=== PATIENT | female | born 1945 | race Caucasian/White ===

== ENCOUNTER 2023-03-09 18:53 | Inpatient (IN) ==
[2023-03-09] MEDS ORDERED: SODIUM CHLORIDE 0.9% 1000ML 1,000 ML IV ONE (19:23)
[2023-03-09] MEDS ORDERED: methylPREDNISolone 125 MG/2 ML VIAL IV STA (19:23)
[2023-03-09] MEDS ORDERED: ALBUT/IPRATROP 3MG/0.5MG NEB 3 ML VIAL NEB ONE (19:23)
[2023-03-09 19:49] LABS: Base Excess VBG 1.2 mEq/L; HCO3 VBG 29 mmol/L; Oxygen Saturation VBG 97.4 %; PCO2 VBG 59 mmHg (38-50); PO2 VBG 86 mmHg
[2023-03-09 19:54] LABS: Basophils # (auto) 0.03 K/uL (0-0.2); Basophils % (auto) 0.4 %; Eosinophils # (auto) 0.08 K/uL (0-0.50); Hematocrit (blood only) 42.4 % (37.0-47.0); Hemoglobin 15.8 g/dl (12.0-16.0); Immature Granulocytes # (auto) 0.05 K/uL (0.01-0.20); Immature Granulocytes % (auto) 0.6 %; Lymphocytes # (auto) 0.59 K/uL (1.2-3.4); Lymphocytes % (auto) 7.5 %; Mean Corpuscular Hemoglobin 30.3 pg (25.0-34.0); Mean Corpuscular Hgb Conc 37.3 g/dL (32.0-36.0); Mean Corpuscular Volume 81.4 fL (80.0-100.0); Monocytes # (auto) 0.69 K/uL (0.11-0.59); Monocytes % (auto) 8.7 %; Neutrophils # (auto) 6.46 K/uL (1.40-6.50); Neutrophils % (auto) 81.8 %; Platelet Count 242 K/uL (130-400); RDW Coefficient of Variation 11.1 % (11.5-14.5); RDW Standard Deviation 32.6 fL (36.4-46.3); Red Blood Count 5.21 M/uL (4.20-5.40)
[2023-03-09 20:09] LABS: Albumin Globulin Ratio 1.5 (0.9-2); Albumin Level 4.8 gm/dl (3.4-5.0); BUN Creatinine Ratio 27.8 (10-20); Bilirubin,Total 0.7 mg/dl (0.2-1.0); Calcium 9.7 mg/dl (8.6-10.3); Creatinine Clr Calc Pharmacy 95.9 ml/min; Est GFR (African American) 120.6 ml/min; Globulin 3.1 gm/dl (2.5-4.0); Magnesium 1.7 mg/dl (1.7-2.4); Potassium 4.1 mmol/L (3.5-5.1); Total Protein 7.9 gm/dl (6.0-8.3)
[2023-03-09 20:16] LABS: Troponin I High Sensitivity 11.8 pg/ml (0-14)
--- NOTE | 2023-03-09 20:19 | Emergency Department Note ---
Impression & Plan Acute and chronic respiratory failure with hypercapnia, COPD (chronic obstructive pulmonary disease), ST elevation on ECG, Bigeminy, Hypertensive emergency, Hyponatremia, Pneumonia ED Provider Note NAME: PHILOMENA KU AGE: 77 SEX: F ARRIVES VIA: Ambulance INFORMANT: Patient ED PROVIDER(S): Vinicio Tian MD CHIEF COMPLAINT: Shortness of breath. PLAN: Disposition: Admit MEDICAL DECISION MAKING: The patient is a pleasant 77-year-old woman with a past medical history of chronic respiratory failure on 2 L home oxygen, COPD, pulmonary cachexia per records who presents to the emergency department via EMS and respiratory distress companied by her granddaughter for evaluation of worsening respiratory symptoms over the past 3-4 days with increased productive yellow sputum. She denies any fevers, nausea, vomiting or diarrhea. They report that she has had poor appetite. Her granddaughter confirms that her work of breathing which she exhibits on arrival is not her baseline. On arrival the patient is in moderate respiratory distress afebrile with heart in the 110s and respiratory rate in the upper 20s low with O2 saturation in the mid 90s on nasal cannula. She has diminished breath sounds bilaterally with underlying wheeze and prolonged expiratory phase with moderate increased work of breathing. Patient agreed with plan for treatment with BiPAP for acute on chronic respiratory failure and inline DuoNeb. Patient was given Solu-Medrol by EMS. Initial EKG on arrival demonstrates sinus tachycardia at [address] elevation or depression with LVH noted. Chest x-ray negative for acute cardiopulmonary process per my preliminary review with lung hyperinflation and flattening of diaphragm consistent with patient's chronic respiratory failure in setting of COPD. WBC, H/H and platelets within normal limits. Chemistry without metabolic acidosis with bicarbonate 26 however VBG with pH of 7.3 and PCO2 of 59 in the setting of the patient's tachypnea with respiratory rate in the low 30s on arrival suggestive of acute hypercapnic respiratory failure. Sodium 118 which appears to be new with serum osmolality of 256 and urine osmolality and urine sodium pending. LFTs unremarkable. Initial high-sensitivity troponin 11.8, within normal limits. Of note, the patient's respiratory status did improve with BiPAP and continuous DuoNeb. However I was then notified of new ectopy on the patient's telemetry by nursing which demonstrated frequent PVCs and pattern of bigeminy. Subsequently the morphology of the patient's telemetry did change concerning for ST elevation and upon repeat EKG demonstrated anterior lateral ST elevations. The patient continued to appear improved from her initial presentation and denied chest pain or pressure. I did perform a limited bedside cardiac ultrasound which demonstrated apical hypokinesis. While ST elevation FL is certainly considered, patients presentation is not necessarily specific for this and stress-induced cardiomyopathy (Takotsubo's) in the setting of COPD with acute on chronic respiratory failure and hyponatremia is also considered. I did review the findings with the patient and her granddaughter at the bedside. We did discuss CODE STATUS for which the patient has yet to establish a definitive CODE STATUS. However the granddaughter feels that the patient's inclination would be to be DNR/DNI. However the patient did not feel immediately ready to make this decision and so this will be readdressed. It should be noted that during the patient's pulmonology visit in August palliative medicine referral was considered at that time. Further treatment provided with nitroglycerin paste, which was transitioned to nitroglycerin drip for afterload reduction given profound hypertension. She was additionally given full dose aspirin. Case was discussed with interventional cardiology, Dr. Lindo, who reviewed the patient's EKGs from today. Appreciate consultation and recommendations. Given the patient's presentation with multiple confounding factors and given no cur rent chest pain Ragman intervention will be deferred for now pending further treatment and stabilization. A degree of troponin elevation is expected however if patient were to decompensate or develop chest pain then catheterization would be reconsidered. Upon repeat evaluations the patient was feeling improved with blood pressure/MAP improving from 160-170 to 110-120. For further characterization of the patient's symptoms CT of the chest was ordered and is pending. Case was discussed with Dr. Hernández, [facility] hospitalist who will evaluate the patient for admission. CTA of the chest completed and subsequently demonstrates question of pneumonia versus mass/malignancy of the anterior left upper lobe. Otherwise no PE. Delta 2 hour HS troponin 121, non-specfic per above. Further management per admitting team. Triage Nursing notes reviewed and agree them. Prior/outside medical records reviewed Vital Signs: reviewed Differential diagnosis: Reactive airway disease, pneumonia, pneumothorax, COPD, CHF, infections, cardiac ischemia, pulmonary embolism, musculoskeletal, gastrointestinal, as well as other pathologies. ER treatment provided: See below. Diagnostics interpreted by me: ECG 1907: Sinus tachycardia, 120 bpm, no ectopy, LVH, no overt ST elevation or depression, QTc 474, QRS 102. No recent EKG available for comparison. Last [facility] EKG 06/21/2014. ECG 2030: Sinus tachycardia, 128 bpm frequent PVCs and pattern of bigeminy, no overt ST elevation. ECG 204: Sinus tachycardia, 132 bpm, no ectopy, anterior lateral ST elevation. Cardiac Monitoring: An order for continuous cardiac monitoring was placed and demonstrated sinus tachycardia, 128 bpm, frequent PVCs and pattern of bigeminy, development of anterior lateral ST elevation. Laboratory studies: See below Imaging studies: See below Consultation(s): Dr. Lindo[facility]. Dr. Hernández, [facility] hospitalist. HPI: The patient is a pleasant 77-year-old woman with a past medical history of chronic respiratory failure on 2 L home oxygen, COPD, pulmonary cachexia per records who presents to the emergency department via EMS and respiratory distress companied by her granddaughter for evaluation of worsening respiratory symptoms over the past 3-4 days with increased productive yellow sputum. She denies any fevers, nausea, vomiting or diarrhea. They report that she has had poor appetite. Her granddaughter confirms that her work of breathing which she exhibits on arrival is not her baseline. ROS: See above HPI for pertinent positives & negatives. A total of 10 systems reviewed and were otherwise negative. VITALS:See Below PHYSICAL EXAMINATION: GENERAL: Awake, alert, ill-appearing, moderate respiratory distress, cachectic. HENT: Normocephalic, atraumatic. Oropharynx with dry mucous membranes and otherwise unremarkable.. EYES: Normal conjunctiva. Sclera non-icteric. NECK: Supple. No nuchal rigidity. FROM. No JVD. RESPIRATORY: Diminished breath sounds bilaterally with underlying wheeze and prolonged expiratory phase with moderate increased work of breathing. CARDIAC: Tachycardic rate, normal rhythm. Extremities warm and well perfused. Pulses equal. ABDOMEN: Soft, non-distended. No tenderness to palpation. No rebound or guarding. No masses. RECTAL: Deferred. MUSCULOSKELETAL: Chest examination reveals no tenderness. The back is symmetrical on inspection without obvious abnormality. There is no CVA tenderness to palpation. No joint edema. LOWER EXTREMITIES: Calves are equal size bilaterally and non-tender. No edema. No discoloration. NEURO: Normal sensorium. No sensory or motor deficits noted. SKIN: No rash or jaundice noted. ED COURSE: Critical Care: I have personally spent greater than 75 minutes of critical care time in the direct management of this patient. This includes bedside care, interpretation of diagnostic studies, and testing, discussion with consultants, patient, and family members, and other required patient management activities. This 75 minutes is in excess of all separately billable procedures. Vinicio Tian MD Past Med/Surg History Medical History Anxiety Cervical cancer Chronic respiratory failure COPD (chronic obstructive pulmonary disease) Hernia Pulmonary nodule, left Tobacco abuse Surgical History History of breast lump/mass excision History of surgical removal of pilonidal cyst S/P bilateral breast biopsy S/P cataract extraction S/P hysterectomy Status post bilateral foot surgery Social History Smoking Status: Former smoker Tobacco Type: Cigarettes Age Started Using Tobacco: 13; packs per day: 1.5; Second Hand Exposure: No; Do You Dip or Chew Tobacco: No; Tobacco Cessation Education Requested by Patient: No Hx Alcohol Use: No Hx Substance Use: No Preferred Language: Somali Communication Ability: Effective Visual Impairment: Limited Hearing Ability: Hard of Hearing Beliefs That Will Affect Care: None marital status: Current Living Situation: Personal Care Facility Current Living Situation Comment: [employer] current occupational status: retired How many Children do You have: 1 How many Children do You have Comment: DAUGHTER UNABLE TO ASSIST MUCH WITH CARE, NIECES ASSIST WITH CARE Other Information That Helps Us Care for You: No Feels Safe at Home: Yes Safety Concerns: Feels Safe At This Time during the past year weight has: decreased > 10 lbs Assistive Devices: Oxygen - Continuous Allergies Allergies Allergy/AdvReac Type Severity Reaction Status Date / Time aspirin AdvReac Intermediate NOSE BLEED Verified 03/09/23 19:42 WITH FULL STRENGTH ASA, LOW DOSE OK. Sulfa (Sulfonamide AdvReac Intermediate NOSE Verified 03/09/23 19:39 Antibiotics) BLEEDS PER [facility] MED LIST Home Meds Home Medications Medication Instructions Recorded Confirmed albuterol sulfate 90 mcg/actuation 2 puff inhalation Q4H PRN 08/21/21 03/09/23 aerosol inhaler Shortness Of Breath Or Wheezing alprazolam 0.25 mg tablet (Xanax) 0.25 mg PO DAILY PRN Anxiety 08/21/21 03/09/23 aspirin 81 mg tablet,delayed 81 mg PO DAILY 08/21/21 03/09/23 release acetaminophen 500 mg tablet 500 mg PO DIRECTED PRN Pain 03/09/23 03/09/23 (Non-Aspirin Pain Relief) Results & Data (ED) Vital Signs Vital Signs - 24 hr 03/09/23 18:57 03/09/23 19:05 03/09/23 19:10 Temperature 36.6 C Temperature Source Oral Pulse Rate 129 H 120 H Pulse Rate [Finger] 121 H Pulse Rate from SpO2 Sensor Pulse Rhythm [Finger] Regular Respiratory Rate 32 H 32 H Respiratory Effort / Characteristics Labored Non-Labored Respiratory Depth Deep Normal Respiratory Pattern Regular Regular Blood Pressure 259/126 H Blood Pressure Mean 170 Pulse Oximetry 96 97 Oxygen Delivery Method Room Air Nasal Cannula Oxygen Flow Rate 2 Fraction of Inspired Oxygen Sepsis Recent Fever Within 48 Hours No Sepsis New/Unexplained Change in Mental Status No Sepsis Action Taken by Nursing No Action Required 03/09/23 19:27 03/09/23 19:35 03/09/23 19:35 Temperature Temperature Source Pulse Rate 112 H 113 H Pulse Rate [Finger] 109 H Pulse Rate from SpO2 Sensor Pulse Rhythm [Finger] Respiratory Rate 18 22 24 Respiratory Effort / Characteristics Spontaneous Accessory Muscle Use Spontaneous Respiratory Depth Respiratory Pattern Blood Pressure Blood Pressure Mean Pulse Oximetry 96 100 100 Oxygen Delivery Method Nasal Cannula BiPAP Oxygen Flow Rate 2 Fraction of Inspired Oxygen 40 40 Sepsis Recent Fever Within 48 Hours Sepsis New/Unexplained Change in Mental Status Sepsis Action Taken by Nursing 03/09/23 19:05 03/09/23 19:11 03/09/23 19:30 Temperature Temperature Source Pulse Rate 121 H 117 H 112 H Pulse Rate [Finger] Pulse Rate from SpO2 Sensor 121 H 118 H 112 H Pulse Rhythm [Finger] Respiratory Rate 25 H 20 32 H Respiratory Effort / Characteristics Respiratory Depth Respiratory Pattern Blood Pressure 249/120 H 214/114 H 193/102 H Blood Pressure Mean 163 147 132 Pulse Oximetry 97 97 96 Oxygen Delivery Method BiPAP Oxygen Flow Rate Fraction of Inspired Oxygen Sepsis Recent Fever Within 48 Hours Sepsis New/Unexplained Change in Mental Status Sepsis Action Taken by Nursing 03/09/23 20:00 03/09/23 20:23 03/09/23 21:27 Temperature Temperature Source Pulse Rate 115 H 120 H Pulse Rate [Finger] Pulse Rate from SpO2 Sensor 115 H Pulse Rhythm [Finger] Respiratory Rate 28 H Respiratory Effort / Characteristics Accessory Muscle Use Labored Pursed Lip Short of Breath Respiratory Depth Deep Respiratory Pattern Tachypnea Blood Pressure 189/109 H Blood Pressure Mean 135 Pulse Oximetry 99 Oxygen Delivery Method BiPAP Oxygen Flow Rate Fraction of Inspired Oxygen Sepsis Recent Fever Within 48 Hours Sepsis New/Unexplained Change in Mental Status Sepsis Action Taken by Nursing 03/09/23 21:30 03/09/23 20:10 03/09/23 20:20 Temperature Temperature Source Pulse Rate 117 H 120 H Pulse Rate [Finger] Pulse Rate from SpO2 Sensor 116 H 120 H Pulse Rhythm [Finger] Respiratory Rate 29 H 26 H Respiratory Effort / Characteristics Respiratory Depth Respiratory Pattern Blood Pressure Blood Pressure Mean Pulse Oximetry 96 99 99 Oxygen Delivery Method Nasal Cannula Oxygen Flow Rate 2 Fraction of Inspired Oxygen Sepsis Recent Fever Within 48 Hours Sepsis New/Unexplained Change in Mental Status Sepsis Action Taken by Nursing 03/09/23 20:30 03/09/23 20:32 03/09/23 20:40 Temperature Temperature Source Pulse Rate 128 H 134 H 138 H Pulse Rate [Finger] Pulse Rate from SpO2 Sensor 128 H 137 H 135 H Pulse Rhythm [Finger] Respiratory Rate 28 H 28 H 29 H Respiratory Effort / Characteristics Respiratory Depth Respiratory Pattern Blood Pressure 197/147 H Blood Pressure Mean 163 Pulse Oximetry 99 100 99 Oxygen Delivery Method Oxygen Flow Rate Fraction of Inspired Oxygen Sepsis Recent Fever Within 48 Hours Sepsis New/Unexplained Change in Mental Status Sepsis Action Taken by Nursing 03/09/23 20:50 03/09/23 21:02 03/09/23 21:07 Temperature Temperature Source Pulse Rate 136 H 134 H Pulse Rate [Finger] Pulse Rate from SpO2 Sensor 136 H 129 H 134 H Pulse Rhythm [Finger] Respiratory Rate 29 H 32 H 24 Respiratory Effort / Characteristics Respiratory Depth Respiratory Pattern Blood Pressure 224/155 H Blood Pressure Mean 178 Pulse Oximetry 98 99 98 Oxygen Delivery Method Oxygen Flow Rate Fraction of Inspired Oxygen Sepsis Recent Fever Within 48 Hours Sepsis New/Unexplained Change in Mental Status Sepsis Action Taken by Nursing 03/09/23 21:10 03/09/23 21:20 03/09/23 21:24 Temperature Temperature Source Pulse Rate 129 H 129 H 127 H Pulse Rate [Finger] Pulse Rate from SpO2 Sensor 130 H 129 H 128 H Pulse Rhythm [Finger] Respiratory Rate 33 H 32 H 31 H Respiratory Effort / Characteristics Respiratory Depth Respiratory Pattern Blood Pressure 207/123 H Blood Pressure Mean 151 Pulse Oximetry 98 99 98 Oxygen Delivery Method Oxygen Flow Rate Fraction of Inspired Oxygen Sepsis Recent Fever Within 48 Hours Sepsis New/Unexplained Change in Mental Status Sepsis Action Taken by Nursing 03/09/23 22:09 Temperature Temperature Source Pulse Rate 113 H Pulse Rate [Finger] Pulse Rate from SpO2 Sensor Pulse Rhythm [Finger] Respiratory Rate 26 H Respiratory Effort / Characteristics Non-Labored Spontaneous Respiratory Depth Normal Respiratory Pattern Regular Blood Pressure Blood Pressure Mean Pulse Oximetry 98 Oxygen Delivery Method Oxygen Flow Rate Fraction of Inspired Oxygen 40 Sepsis Recent Fever Within 48 Hours Sepsis New/Unexplained Change in Mental Status Sepsis Action Taken by Nursing Laboratory Data Attestation: I reviewed the patient's lab results. 03/09/23 19:12 03/09/23 19:12 Lab Results 03/09/23 03/09/23 03/09/23 Range/Units 19:12 19:12 19:12 WBC 7.90 (4.8-10.8) K/ul RBC 5.21 (4.20-5.40) M/uL Hgb 15.8 (12.0-16.0) g/dl Hct 42.4 (37.0-47.0) % MCV 81.4 (80.0-100.0) fL MCH 30.3 (25.0-34.0) pg MCHC 37.3 H (32.0-36.0) g/dL RDW Std Deviation 32.6 L (36.4-46.3) fL RDW Coeff of Morro 11.1 L (11.5-14.5) % Plt Count 242 (130-400) K/uL MPV 11.0 (9.4-12.4) fL Immature Gran % (Auto) 0.6 % Neut % (Auto) 81.8 % Lymph % (Auto) 7.5 % [place] % (Auto) 8.7 % Eos % (Auto) 1.0 % Baso % (Auto) 0.4 % Neut # (Auto) 6.46 (1.40-6.50) K/uL Lymph # (Auto) 0.59 L (1.2-3.4) K/uL [place] # (Auto) 0.69 H (0.11-0.59) K/uL Eos # (Auto) 0.08 (0-0.50) K/uL Baso # (Auto) 0.03 (0-0.2) K/uL Immature Gran # (Auto) 0.05 (0.01-0.20) K/uL PT (9.0-12.0) Seconds INR (0.9-1.1) APTT (21.0-31.0) Seconds PTT Ratio VBG pH (7.36-7.41) VBG pCO2 (38-50) mmHg VBG pO2 mmHg VBG HCO3 mmol/L VBG O2 Saturation % VBG Base Excess mEq/L Sodium 118 L* (136-145) mmol/L Potassium 4.1 (3.5-5.1) mmol/L Chloride 81 L (98-107) mmol/L Carbon Dioxide 26 (21-32) mmol/L Anion Gap 11 (3-11) BUN 10 (6-23) mg/dl Creatinine 0.36 L (0.6-1.2) mg/dl Est Cr Clr Drug Dosing 95.9 ml/min Est GFR ( Amer) 120.6 ml/min Est GFR (Non-Af Amer) 104.0 ml/min BUN/Creatinine Ratio 27.8 H (10-20) Glucose 130 H (70-99(Fasting)) mg/dl Osmolality 256 L (280-300) mOsm/kg Calcium 9.7 (8.6-10.3) mg/dl Phosphorus 3.0 (2.5-4.9) mg/dl Magnesium 1.7 (1.7-2.4) mg/dl Total Bilirubin 0.7 (0.2-1.0) mg/dl AST 21 (13-39) U/L ALT 12 (7-52) U/L Alkaline Phosphatase 56 (34-104) U/L Troponin I High Sens 11.8 (0-14) pg/ml Total Protein 7.9 (6.0-8.3) gm/dl Albumin 4.8 (3.4-5.0) gm/dl Globulin 3.1 (2.5-4.0) gm/dl Albumin/Globulin Ratio 1.5 (0.9-2) Lipase 17 (11-82) U/L TSH (0.300-4.500) uIu/ml Urine Color Urine Appearance (Clear) Urine pH (4.5-7.5) Ur Specific [place] (1.000-1.030) Urine Protein (Negative) Urine Glucose (UA) (Negative) Urine Ketones (Negative) Urine Blood (Negative) Urine Nitrite (Negative) Urine Bilirubin (Negative) Urine Urobilinogen (Negative) Ur Leukocyte Esterase (Negative) Urine WBC (Auto) (0-5) /hpf Urine RBC (Auto) (0-4) /hpf U Hyaline Cast (Auto) (0-5) /lpf U Epithel Cells (Auto) (0-5) /lpf Urine Bacteria (Auto) (Negative) Urine Osmolality (500-800) mOsm/kg Ur Random Sodium mmol/L Adenovirus (PCR) (NotDetected) B. pertussis DNA (PCR) (NotDetected) B.parapertussis DNA PCR (NotDetected) C. pneumoniae DNA (PCR) (NotDetected) Coronavirus OC43 (PCR) (NotDetected) Coronavirus HKU1 (PCR) (NotDetected) Coronavirus 229E (PCR) (NotDetected) SARS-CoV-2 (PCR) (NotDetected) Coronavirus NL63 (PCR) (NotDetected) Human Metapneumovir PCR (NotDetected) Influenza Type A (PCR) (NotDetected) Influenza Type B (PCR) (NotDetected) M. pneumoniae (PCR) (NotDetected) Parainfluenza 1 (PCR) (NotDetected) Parainfluenza 2 (PCR) (NotDetected) Parainfluenza 3 (PCR) (NotDetected) Parainfluenza 4 (PCR) (NotDetected) RSV (PCR) (NotDetected) Entero/Rhino (PCR) (NotDetected) 03/09/23 03/09/23 03/09/23 Range/Units 19:12 19:12 19:13 WBC (4.8-10.8) K/ul RBC (4.20-5.40) M/uL Hgb (12.0-16.0) g/dl Hct (37.0-47.0) % MCV (80.0-100.0) fL MCH (25.0-34.0) pg MCHC (32.0-36.0) g/dL RDW Std Deviation (36.4-46.3) fL RDW Coeff of Morro (11.5-14.5) % Plt Count (130-400) K/uL MPV (9.4-12.4) fL Immature Gran % (Auto) % Neut % (Auto) % Lymph % (Auto) % [place] % (Auto) % Eos % (Auto) % Baso % (Auto) % Neut # (Auto) (1.40-6.50) K/uL Lymph # (Auto) (1.2-3.4) K/uL [place] # (Auto) (0.11-0.59) K/uL Eos # (Auto) (0-0.50) K/uL Baso # (Auto) (0-0.2) K/uL Immature Gran # (Auto) (0.01-0.20) K/uL PT 10.6 (9.0-12.0) Seconds INR 1.0 (0.9-1.1) APTT 28.2 (21.0-31.0) Seconds PTT Ratio 1.0 VBG pH 7.30 L (7.36-7.41) VBG pCO2 59 H (38-50) mmHg VBG pO2 86 mmHg VBG HCO3 29 mmol/L VBG O2 Saturation 97.4 % VBG Base Excess 1.2 mEq/L Sodium (136-145) mmol/L Potassium (3.5-5.1) mmol/L Chloride (98-107) mmol/L Carbon Dioxide (21-32) mmol/L Anion Gap (3-11) BUN (6-23) mg/dl Creatinine (0.6-1.2) mg/dl Est Cr Clr Drug Dosing ml/min Est GFR ( Amer) ml/min Est GFR (Non-Af Amer) ml/min BUN/Creatinine Ratio (10-20) Glucose (70-99(Fasting)) mg/dl Osmolality (280-300) mOsm/kg Calcium (8.6-10.3) mg/dl Phosphorus (2.5-4.9) mg/dl Magnesium (1.7-2.4) mg/dl Total Bilirubin (0.2-1.0) mg/dl AST (13-39) U/L ALT (7-52) U/L Alkaline Phosphatase (34-104) U/L Troponin I High Sens (0-14) pg/ml Total Protein (6.0-8.3) gm/dl Albumin (3.4-5.0) gm/dl Globulin (2.5-4.0) gm/dl Albumin/Globulin Ratio (0.9-2) Lipase (11-82) U/L TSH 0.372 (0.300-4.500) uIu/ml Urine Color Urine Appearance (Clear) Urine pH (4.5-7.5) Ur Specific [place] (1.000-1.030) Urine Protein (Negative) Urine Glucose (UA) (Negative) Urine Ketones (Negative) Urine Blood (Negative) Urine Nitrite (Negative) Urine Bilirubin (Negative) Urine Urobilinogen (Negative) Ur Leukocyte Esterase (Negative) Urine WBC (Auto) (0-5) /hpf Urine RBC (Auto) (0-4) /hpf U Hyaline Cast (Auto) (0-5) /lpf U Epithel Cells (Auto) (0-5) /lpf Urine Bacteria (Auto) (Negative) Urine Osmolality (500-800) mOsm/kg Ur Random Sodium mmol/L Adenovirus (PCR) (NotDetected) B. pertussis DNA (PCR) (NotDetected) B.parapertussis DNA PCR (NotDetected) C. pneumoniae DNA (PCR) (NotDetected) Coronavirus OC43 (PCR) (NotDetected) Coronavirus HKU1 (PCR) (NotDetected) Coronavirus 229E (PCR) (NotDetected) SARS-CoV-2 (PCR) (NotDetected) Coronavirus NL63 (PCR) (NotDetected) Human Metapneumovir PCR (NotDetected) Influenza Type A (PCR) (NotDetected) Influenza Type B (PCR) (NotDetected) M. pneumoniae (PCR) (NotDetected) Parainfluenza 1 (PCR) (NotDetected) Parainfluenza 2 (PCR) (NotDetected) Parainfluenza 3 (PCR) (NotDetected) Parainfluenza 4 (PCR) (NotDetected) RSV (PCR) (NotDetected) Entero/Rhino (PCR) (NotDetected) 03/09/23 03/09/23 03/09/23 Range/Units 19:59 21:14 21:14 WBC (4.8-10.8) K/ul RBC (4.20-5.40) M/uL Hgb (12.0-16.0) g/dl Hct (37.0-47.0) % MCV (80.0-100.0) fL MCH (25.0-34.0) pg MCHC (32.0-36.0) g/dL RDW Std Deviation (36.4-46.3) fL RDW Coeff of [place] (11.5-14.5) % Plt Count (130-400) K/uL MPV (9.4-12.4) fL Immature Gran % (Auto) % Neut % (Auto) % Lymph % (Auto) % [place] % (Auto) % Eos % (Auto) % Baso % (Auto) % Neut # (Auto) (1.40-6.50) K/uL Lymph # (Auto) (1.2-3.4) K/uL [place] # (Auto) (0.11-0.59) K/uL Eos # (Auto) (0-0.50) K/uL Baso # (Auto) (0-0.2) K/uL Immature Gran # (Auto) (0.01-0.20) K/uL PT (9.0-12.0) Seconds INR (0.9-1.1) APTT (21.0-31.0) Seconds PTT Ratio VBG pH (7.36-7.41) VBG pCO2 (38-50) mmHg VBG pO2 mmHg VBG HCO3 mmol/L VBG O2 Saturation % VBG Base Excess mEq/L Sodium (136-145) mmol/L Potassium (3.5-5.1) mmol/L Chloride (98-107) mmol/L Carbon Dioxide (21-32) mmol/L Anion Gap (3-11) BUN (6-23) mg/dl Creatinine (0.6-1.2) mg/dl Est Cr Clr Drug Dosing ml/min Est GFR ( Amer) ml/min Est GFR (Non-Af Amer) ml/min BUN/Creatinine Ratio (10-20) Glucose (70-99(Fasting)) mg/dl Osmolality (280-300) mOsm/kg Calcium (8.6-10.3) mg/dl Phosphorus (2.5-4.9) mg/dl Magnesium (1.7-2.4) mg/dl Total Bilirubin (0.2-1.0) mg/dl AST (13-39) U/L ALT (7-52) U/L Alkaline Phosphatase (34-104) U/L Troponin I High Sens (0-14) pg/ml Total Protein (6.0-8.3) gm/dl Albumin (3.4-5.0) gm/dl Globulin (2.5-4.0) gm/dl Albumin/Globulin Ratio (0.9-2) Lipase (11-82) U/L TSH (0.300-4.500) uIu/ml Urine Color Urine Appearance (Clear) Urine pH (4.5-7.5) Ur Specific [place] (1.000-1.030) Urine Protein (Negative) Urine Glucose (UA) (Negative) Urine Ketones (Negative) Urine Blood (Negative) Urine Nitrite (Negative) Urine Bilirubin (Negative) Urine Urobilinogen (Negative) Ur Leukocyte Esterase (Negative) Urine WBC (Auto) (0-5) /hpf Urine RBC (Auto) (0-4) /hpf U Hyaline Cast (Auto) (0-5) /lpf U Epithel Cells (Auto) (0-5) /lpf Urine Bacteria (Auto) (Negative) Urine Osmolality 424 L (500-800) mOsm/kg Ur Random Sodium 106 mmol/L Adenovirus (PCR) Not Detected (NotDetected) B. pertussis DNA (PCR) Not Detected (NotDetected) B.parapertussis DNA PCR Not Detected (NotDetected) C. pneumoniae DNA (PCR) Not Detected (NotDetected) Coronavirus OC43 (PCR) Not Detected (NotDetected) Coronavirus HKU1 (PCR) Not Detected (NotDetected) Coronavirus 229E (PCR) Not Detected (NotDetected) SARS-CoV-2 (PCR) Not Detected (NotDetected) Coronavirus NL63 (PCR) Not Detected (NotDetected) Human Metapneumovir PCR Not Detected (NotDetected) Influenza Type A (PCR) Not Detected (NotDetected) Influenza Type B (PCR) Not Detected (NotDetected) M. pneumoniae (PCR) Not Detected (NotDetected) Parainfluenza 1 (PCR) Not Detected (NotDetected) Parainfluenza 2 (PCR) Not Detected (NotDetected) Parainfluenza 3 (PCR) Not Detected (NotDetected) Parainfluenza 4 (PCR) Not Detected (NotDetected) RSV (PCR) Not Detected (NotDetected) Entero/Rhino (PCR) Not Detected (NotDetected) 03/09/23 03/09/23 03/09/23 Range/Units 21:14 21:19 21:19 WBC (4.8-10.8) K/ul RBC (4.20-5.40) M/uL Hgb (12.0-16.0) g/dl Hct (37.0-47.0) % MCV (80.0-100.0) fL MCH (25.0-34.0) pg MCHC (32.0-36.0) g/dL RDW Std Deviation (36.4-46.3) fL RDW Coeff of [place] (11.5-14.5) % Plt Count (130-400) K/uL MPV (9.4-12.4) fL Immature Gran % (Auto) % Neut % (Auto) % Lymph % (Auto) % [place] % (Auto) % Eos % (Auto) % Baso % (Auto) % Neut # (Auto) (1.40-6.50) K/uL Lymph # (Auto) (1.2-3.4) K/uL [place] # (Auto) (0.11-0.59) K/uL Eos # (Auto) (0-0.50) K/uL Baso # (Auto) (0-0.2) K/uL Immature Gran # (Auto) (0.01-0.20) K/uL PT (9.0-12.0) Seconds INR (0.9-1.1) APTT (21.0-31.0) Seconds PTT Ratio VBG pH (7.36-7.41) VBG pCO2 (38-50) mmHg VBG pO2 mmHg VBG HCO3 mmol/L VBG O2 Saturation % VBG Base Excess mEq/L Sodium 119 L* (136-145) mmol/L Potassium 3.8 (3.5-5.1) mmol/L Chloride 86 L (98-107) mmol/L Carbon Dioxide 23 (21-32) mmol/L Anion Gap 10 (3-11) BUN 9 (6-23) mg/dl Creatinine 0.34 L (0.6-1.2) mg/dl Est Cr Clr Drug Dosing 101.5 ml/min Est GFR ( Amer) 122.8 ml/min Est GFR (Non-Af Amer) 106.0 ml/min BUN/Creatinine Ratio 26.5 H (10-20) Glucose 200 H (70-99(Fasting)) mg/dl Osmolality (280-300) mOsm/kg Calcium 8.3 L (8.6-10.3) mg/dl Phosphorus (2.5-4.9) mg/dl Magnesium (1.7-2.4) mg/dl Total Bilirubin (0.2-1.0) mg/dl AST (13-39) U/L ALT (7-52) U/L Alkaline Phosphatase (34-104) U/L Troponin I High Sens 121.2 H* D (0-14) pg/ml Total Protein (6.0-8.3) gm/dl Albumin (3.4-5.0) gm/dl Globulin (2.5-4.0) gm/dl Albumin/Globulin Ratio (0.9-2) Lipase (11-82) U/L TSH (0.300-4.500) uIu/ml Urine Color Yellow Urine Appearance Clear (Clear) Urine pH 6.0 (4.5-7.5) Ur Specific [place] 1.012 (1.000-1.030) Urine Protein 2+ H (Negative) Urine Glucose (UA) Trace H (Negative) Urine Ketones 3+ H (Negative) Urine Blood 1+ H (Negative) Urine Nitrite Negative (Negative) Urine Bilirubin Negative (Negative) Urine Urobilinogen Negative (Negative) Ur Leukocyte Esterase Negative (Negative) Urine WBC (Auto) 1-5 (0-5) /hpf Urine RBC (Auto) 5-10 H (0-4) /hpf U Hyaline Cast (Auto) 0 (0-5) /lpf U Epithel Cells (Auto) 10-20 H (0-5) /lpf Urine Bacteria (Auto) 4+ H (Negative) Urine Osmolality (500-800) mOsm/kg Ur Random Sodium mmol/L Adenovirus (PCR) (NotDetected) B. pertussis DNA (PCR) (NotDetected) B.parapertussis DNA PCR (NotDetected) C. pneumoniae DNA (PCR) (NotDetected) Coronavirus OC43 (PCR) (NotDetected) Coronavirus HKU1 (PCR) (NotDetected) Coronavirus 229E (PCR) (NotDetected) SARS-CoV-2 (PCR) (NotDetected) Coronavirus NL63 (PCR) (NotDetected) Human Metapneumovir PCR (NotDetected) Influenza Type A (PCR) (NotDetected) Influenza Type B (PCR) (NotDetected) M. pneumoniae (PCR) (NotDetected) Parainfluenza 1 (PCR) (NotDetected) Parainfluenza 2 (PCR) (NotDetected) Parainfluenza 3 (PCR) (NotDetected) Parainfluenza 4 (PCR) (NotDetected) RSV (PCR) (NotDetected) Entero/Rhino (PCR) (NotDetected) Administered Medications Sodium Chloride (Nss 1000ml) 1,000 mls @ 50 mls/hr IV .Q20H ONE Stop: 03/10/23 21:20 Last Admin: 03/10/23 01:37 Dose: 50 mls/hr Documented By: YVETTE Ipratropium [place] (Ipratropium [place] Neb Soln 0.02% 2.5 Ml Vial) 0.5 mg INH Q6R QAMAR Stop: 04/09/23 00:59 Last Admin: 03/10/23 01:44 Dose: 0.5 mg Documented By: ARIANE Levalbuterol HCl (Levalbuterol 1.25 Mg/3 Ml Neb) 1.25 mg NEB Q6R QAMAR Stop: 04/09/23 00:59 Last Admin: 03/10/23 01:44 Dose: 1.25 mg Documented By: ARIANE Discontinued Medications Albuterol (Albut/Ipratrop 3mg/0.5mg Neb 3 Ml Vial) 12 ml NEB ONE ONE; Protocol Stop: 03/09/23 19:24 Last Admin: 03/09/23 19:34 Dose: 12 ml Documented By: ARIANE Aspirin (Aspirin Chew 324 Mg) 324 mg PO NOW STA Stop: 03/09/23 21:22 Last Admin: 03/09/23 21:31 Dose: Not Given Documented By: ANJUM Sodium Chloride (Nss 1000ml) 1,000 mls @ 999 mls/hr IV .Q1H1M ONE Stop: 03/09/23 20:23 Last Infusion: 03/09/23 22:00 Dose: 0 mls/hr Documented By: Admin: 03/09/23 20:52 Dose: 999 mls/hr Documented By: MOHINI Magnesium Sulfate/Dextrose (Magnesium Sulfate / D5w) 1 gm in 100 mls @ 100 mls/hr IV NOW STA Stop: 03/09/23 21:28 Last Infusion: 03/09/23 22:00 Dose: 0 mls/hr Documented By: Admin: 03/09/23 20:53 Dose: 100 mls/hr Documented By: MOHINI Nitroglycerin/Dextrose (Nitroglycerin/D5w 100 Mcg/Ml) 250 mls @ 3 mls/hr IV . Q24H [facility]; Protocol Stop: 04/08/23 21:29 Last Titration: 03/10/23 00:03 Dose: 0 mcg/min, 0 mls/hr Documented By: Titration: 03/09/23 22:35 Dose: 0 mcg/min, 0 mls/hr Documented By: Admin: 03/09/23 21:35 Dose: 5 mcg/min, 3 mls/hr Documented By: ANJUM Co-signed By: Doxycycline Hyclate 100 mg/ (Dextrose) 110 mls @ 50 mls/hr IV NOW STA Stop: 03/09/23 23:48 Last Infusion: 03/10/23 00:50 Dose: 0 mls/hr Documented By: Admin: 03/09/23 22:38 Dose: 50 mls/hr Documented By: ANJUM Ceftriaxone Sodium 1,000 mg/ (Dextrose) 50 mls @ 100 mls/hr IV NOW STA Stop: 03/09/23 23:28 Last Infusion: 03/09/23 23:46 Dose: 0 mls/hr Documented By: Admin: 03/09/23 23:16 Dose: 100 mls/hr Documented By: RAJI Potassium Chloride (K Rac[place] / Wtr) 10 meq in 100 mls @ 100 mls/hr IV Q1H QAMAR Stop: 03/10/23 01:14 Last Admin: 03/10/23 01:37 Dose: 75 mls/hr Documented By: Infusion: 03/10/23 01:17 Dose: 0 mls/hr Documented By: Admin: 03/10/23 00:17 Dose: 100 mls/hr Documented By: YVETTE Albumin Human (Albumin 25%) 25 gm in 100 mls @ 50 mls/hr IV ONE ONE Stop: 03/10/23 02:29 Last Admin: 03/10/23 00:49 Dose: 50 mls/hr Documented By: YVETTE Ioversol (Optiray 320 125ml) 117 ml IV ONCE ONE Stop: 03/09/23 21:53 Last Admin: 03/09/23 21:52 Dose: 117 ml Documented By: CYNTHIA Labetalol HCl (Labetalol Hcl Iv 5 Mg/Ml 20ml) 10 mg IV NOW STA Stop: 03/09/23 21:39 Last Admin: 03/09/23 22:29 Dose: Not Given Documented By: ANJUM Lorazepam (Lorazepam 2 Mg/1 Ml Vial) 0.5 mg IV NOW STA Stop: 03/09/23 20:29 Last Admin: 03/09/23 21:10 Dose: 0.25 mg Documented By: MOHINI Lorazepam (Lorazepam 2 Mg/1 Ml Vial) 0.25 mg IV NOW STA Stop: 03/09/23 22:00 Last Admin: 03/10/23 00:02 Dose: Not Given Documented By: YVETTE Methylprednisolone (Methylprednisolone 125 Mg/2 Ml Vial) 125 mg IV NOW STA Stop: 03/09/23 19:24 Last Admin: 03/09/23 20:55 Dose: Not Given Documented By: MOHINI Metoprolol Tartrate (Metoprolol Tartrate 1 Mg/Ml Vial) 5 mg IV NOW STA Stop: 03/09/23 21:58 Last Admin: 03/09/23 22:28 Dose: Not Given Documented By: ANJUM Metoprolol Tartrate (Metoprolol Tartrate 1 Mg/Ml Vial) 2.5 mg IV NOW STA Stop: 03/09/23 22:19 Last Admin: 03/10/23 00:49 Dose: 2.5 mg Documented By: YVETTE Metoprolol Tartrate (Metoprolol Tartrate 1 Mg/Ml Vial) Confirm Administered Dose 5 mg IV .STK-MED ONE Stop: 03/10/23 00:38 Last Admin: 03/10/23 01:22 Dose: Not Given Documented By: YVETTE Nitroglycerin (Nitroglycerin 2% Ointment 30gm Tube) Confirm Administered Dose 18 inch EXT .STK-MED ONE Stop: 03/09/23 20:52 Last Admin: 03/09/23 20:52 Dose: 1 inch Documented By: [facility] Imaging Data My Impression: CXR: Hyperinflation with flattening of diaphragm bilaterally without acute cardiopulmonary process otherwise per my preliminary review. Radiologist's Impression: Chest CTA 03/09/23 21:21 Exam(s): CTA CHEST IV Amt: 117ml optiray 320 EXAM: CT Angiography Chest With Intravenous Contrast CLINICAL HISTORY: Reason for exam: acute on chronic resp. failure, CIRILO, r/o PE. TECHNIQUE: Axial computed tomographic angiography images of the chest with intravenous contrast. CTDI is 24 mGy and DLP is 340.72 mGy-cm. Automated exposure control was utilized for the study. A dose lowering technique was utilized adhering to the principles of ALARA. MIP reconstructed images were created and reviewed. COMPARISON: No relevant prior studies available. FINDINGS: Pulmonary arteries: No pulmonary embolism. Aorta: No acute findings.. Normal caliber. No dissection. Lungs: Masslike consolidation within the anterior aspect of the left upper lobe. Differential of pneumonia versus malignancy. Pulmonary nodule at the left lower lobe base measuring 1.9 x 1.6 cm. Severe emphysema. Pleural space: Unremarkable. Heart: Unremarkable. Bones/joints: No acute fracture. Soft tissues: Unremarkable. Lymph nodes: Unremarkable. IMPRESSION: 1. No pulmonary embolism. 2. Masslike consolidation within the anterior aspect of the left upper lobe. Differential of pneumonia versus malignancy. 3. Pulmonary nodule at the left lower lobe base measuring 1.9 x 1.6 cm. 4. Severe emphysema. Electronically signed by: Qasim Parry MD 03/09/23 22:45 PM Discharge Plan Visit Data Chief Complaint: Shortness of Breath/Dyspnea ED Provider: Vinicio Tian Discharge Problem: Acute and chronic respiratory failure with hypercapnia, COPD (chronic obstructive pulmonary disease), ST elevation on ECG, [place], Hypertensive emergency, Hyponatremia, Pneumonia Patient Disposition: Admitted As Inpatient Discharge Instructions Interventions: ED Discharge Assessment Last Done: 03/09/23 23:13 Pneumonia Qualifiers: Pneumonia type: due to unspecified organism Laterality: left Lung location: upper lobe of lung Qualified Code(s): J18.9 - Pneumonia, unspecified organism
[2023-03-09] MEDS ORDERED: MAGNESIUM SULFATE / D5W 1 GM/100 ML BAG IV STA (20:29)
[2023-03-09] MEDS ORDERED: NITROGLYCERIN 2% OINTMENT 30GM TUBE EXT ONE (20:51)
[2023-03-09] MEDS: LORazepam 2 MG/1 ML VIAL IV STA ×2 (20:52→21:10)
[2023-03-09 21:11] LABS: Adenovirus PCR Not Detected (NotDetected); Bordetella parapertussis PCR Not Detected (NotDetected); Bordetella pertussis PCR Not Detected (NotDetected); Chlamydia pneumoniae PCR Not Detected (NotDetected); Coronavirus 229E PCR Not Detected (NotDetected); Coronavirus CoV-2 (COVID19)PCR Not Detected (NotDetected); Coronavirus HKU1 PCR Not Detected (NotDetected); Coronavirus NL63 PCR Not Detected (NotDetected); Coronavirus OC43PCR Not Detected (NotDetected); Human Metapneumovirus PCR Not Detected (NotDetected); Influenza A PCR Not Detected (NotDetected); Influenza B PCR Not Detected (NotDetected); Mycoplasma pneumoniae PCR Not Detected (NotDetected); Parainfluenza Virus 1 PCR Not Detected (NotDetected); Parainfluenza Virus 2 PCR Not Detected (NotDetected); Parainfluenza Virus 3 PCR Not Detected (NotDetected); Parainfluenza Virus 4 PCR Not Detected (NotDetected); Respiratory Syncytial VirusPCR Not Detected (NotDetected); Rhinovirus/Enterovirus PCR Not Detected (NotDetected)
[2023-03-09] MEDS ORDERED: ASPIRIN CHEW 324 MG PO STA (21:21)
[2023-03-09] MEDS ORDERED: STAT IV Infusion **Titration per Protocol STA (21:23)
[2023-03-09] MEDS ORDERED: NITROGLYCERIN/D5W 100MCG/ML 250 ML IV SCH (21:30)
[2023-03-09] MEDS ORDERED: DOXYCYCLINE HYCLATE 100 MG in DEXTROSE 5% 100 ML IV STA (21:37)
[2023-03-09] MEDS ORDERED: LABETALOL HCL IV 5 MG/ML 20ML IV STA (21:38)
[2023-03-09 21:43] LABS: Partial Thromboplastin Time 28.2 Seconds (21.0-31.0); Prothrombin Time 10.6 Seconds (9.0-12.0)
[2023-03-09] MEDS ORDERED: OPTIRAY 320 125ml IV ONE (21:52)
[2023-03-09] MEDS ORDERED: METOPROLOL TARTRATE 1 MG/ML VIAL IV STA ×2 (21:57→22:18)
[2023-03-09] MEDS ORDERED: LORazepam 2 MG/1 ML VIAL IV STA (21:59)
[2023-03-09 22:13] LABS: BUN Creatinine Ratio 26.5 (10-20); Calcium 8.3 mg/dl (8.6-10.3); Creatinine Clr Calc Pharmacy 101.5 ml/min; Est GFR (African American) 122.8 ml/min; Potassium 3.8 mmol/L (3.5-5.1)
--- NOTE | 2023-03-09 22:19 | History & Physical Report ---
Date of Service March 09, 2023 Assessment & Plan (1) Acute and chronic respiratory failure with hypercapnia: Plan: hx chronic respiratory failure secondary to COPD on home O2 COPD exacerbation secondary to community-acquired pneumonia/possible postobstructive pneumonia given masslike consolidation left upper lobe as per CT report No sepsis Hypertensive crisis STEMI on EKG secondary to illness Possible cardiomyopathy/hypokinesis on bedside echo as per ER provider. ER provider contacted dyno technician on-call (Dr. Lindo) who recommends holding off on cardiac catheterization as patient chest pain at time of abnormal telemetry/EKG Hyponatremia secondary to illness cervical cancer status post surgery anxiety disorder Hyperglycemia likely prediabetes, outpatient hemoglobin A1c of 5.7 in 2020 Medical noncompliance as per records Malnutrition (low BMI) secondary to pulmonary cachexia past tobacco abuse PCU Wean off BiPAP Recheck ABG Ceftriaxone, doxycycline Steroid, nebs RTC for COPD exacerbation Pulmonary consult Re: Respiratory failure, abnormal CT chest Aspirin, beta-jorge luis, IV heparin for STEMI TTE, Cardiology consult Re: ACS N.p.o. until patient seen by specialists in anticipation of procedure. Careful correction of sodium, hyponatremia work-up, may need Nephrology consultation Update hemoglobin A1c Nutrition consult Re: Low BMI DVT prophylaxis. IV heparin Full code as per patient Patient family requesting updates from providers. Ms. Julianna Vargas (daughter ), contact #[phone]. Ms. Mckayla Riley (granddaughter), contact #[phone]. Total critical care time was 45 minutes. Text document was generated using [employer] voice recognition software. It may contain grammatical or spelling errors. Kindly contact undersigned for clarification of any documentation item in question. History of Present Illness Chief Complaint: Worsening shortness of breath Primary Care Provider: Dr. Vilma Dior History obtained from patient, family, and records. Medical history significant for chronic respiratory failure secondary to COPD on home O2, history of pulmonary nodules, cervical cancer status post surgery, anxiety disorder, past tobacco abuse, medical noncompliance as per records. Patient declining in health over the last few months as per family. Does not want to go out of her home. Patient seems depressed since the of sister about 6 years ago. No thoughts about harming herself. Patient seen at [facility] [place] 6 months ago for follow-up visit. Patient noncompliant with standard COPD treatment as per documentation. She declined PFTs, follow-up low-dose CT chest screening at that time. 2020 low-dose CT chest showed unchanged left lower lobe solid nodule measuring 1.8 x 1.5 cm. Several other subcentimeter pulmonary nodules are again seen scattered throughout the lungs which are all stable dating back to CT from September 2017 as per report. Consideration for palliative medicine consultation. Patient noted worsening cough productive of yellow sputum with shortness of breath the last few days. No known sick contacts. Denies aspiration but patient admits to choking sensation from time to time. Poor appetite. No headache symptoms. Pleuritic chest pain. Patient family called EMS to patient's home. Patient noted to be in respiratory distress. Solu-Medrol and neb treatment administered in route to ER. SBP 250s upon arrival at the ER. BiPAP initiated at the ER. Nitro drip/Nitropaste administered at the ER. Patient later noted to have ST elevations on the monitor. Patient without chest pain complaints at time of abnormal telemetry as per ER provider.. 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 Sulfa (Sulfonamide AdvReac Intermediate NOSE Verified 03/09/23 19:39 Antibiotics) BLEEDS PER [facility] MED LIST Home Medications Medication Instructions Recorded Confirmed Type albuterol sulfate 90 mcg/actuation 2 puff inhalation Q4H PRN 08/21/21 03/09/23 History aerosol inhaler Shortness Of Breath Or Wheezing alprazolam 0.25 mg tablet (Xanax) 0.25 mg PO DAILY PRN Anxiety 08/21/21 03/09/23 History aspirin 81 mg tablet,delayed 81 mg PO DAILY 08/21/21 03/09/23 History release acetaminophen 500 mg tablet 500 mg PO DIRECTED PRN Pain 03/09/23 03/09/23 History (Non-Aspirin Pain Relief) Past Med/Surg History Medical History (Updated 03/10/23 @ 10:11 by Alen Holcomb PA-C) Anxiety Cervical cancer Chronic respiratory failure COPD (chronic obstructive pulmonary disease) Hernia Pulmonary nodule, left Tobacco abuse Surgical History History of breast lump/mass excision History of surgical removal of pilonidal cyst S/P bilateral breast biopsy S/P cataract extraction S/P hysterectomy Status post bilateral foot surgery Social History Smoking Status: Former smoker Tobacco Type: Cigarettes Age Started Using Tobacco: 13; packs per day: 1.5; Second Hand Exposure: No; Do You Dip or Chew Tobacco: No; Tobacco Cessation Education Requested by Patient: No Hx Alcohol Use: No Hx Substance Use: No Preferred Language: Pakistani Communication Ability: Effective Visual Impairment: Limited Hearing Ability: Hard of Hearing Beliefs That Will Affect Care: None marital status: Current Living Situation: Personal Care Facility Current Living Situation Comment: [employer] current occupational status: retired How many Children do You have: 1 How many Children do You have Comment: DAUGHTER UNABLE TO ASSIST MUCH WITH CARE, NIECES ASSIST WITH CARE Other Information That Helps Us Care for You: No Feels Safe at Home: Yes Safety Concerns: Feels Safe At This Time during the past year weight has: decreased > 10 lbs Assistive Devices: Oxygen - Continuous Review of Systems Review of Systems: As per HPI, all other systems reviewed and negative Physical Exam Physical Exam: GENERAL: Slightly uncomfortable, underweight, minimal respiratory distress SKIN: Normal color, warm HEENT: [place] palpebral conjunctivae, no ptosis, dry buccal mucosa, BiPAP in place NECK : Supple, no tenderness CHEST : Decreased breath sounds, occasional expiratory wheezes, no tenderness HEART : Tachycardic, no obvious murmurs ABDOMEN: no distention, nontender EXTREMITIES : No LE swelling/tenderness, no other conspicuous deformities noted NEUROLOGIC : Coherent, no facial asymmetry, gait and stance not assessed Results & Data Results & Data Vital Signs (Past 12 Hours) Vital Signs Temp Pulse Pulse Resp BP Pulse Ox O2 Del Method 03/09/23 21:24 127 H 31 H 207/123 H 98 03/09/23 21:20 129 H 32 H 99 03/09/23 21:10 129 H 33 H 98 03/09/23 21:07 134 H 24 224/155 H 98 03/09/23 21:02 32 H 99 03/09/23 20:50 136 H 29 H 98 03/09/23 20:40 138 H 29 H 99 03/09/23 20:32 134 H 28 H 197/147 H 100 03/09/23 20:30 128 H 28 H 99 03/09/23 20:20 120 H 26 H 99 03/09/23 20:10 117 H 29 H 99 03/09/23 21:30 96 Nasal Cannula 03/09/23 20:23 120 H 03/09/23 20:00 115 H 28 H 189/109 H 99 BiPAP 03/09/23 19:30 112 H 32 H 193/102 H 96 BiPAP 03/09/23 19:11 117 H 20 214/114 H 97 03/09/23 19:05 121 H 25 H 249/120 H 97 03/09/23 19:35 113 H 24 100 03/09/23 19:35 109 H 22 100 BiPAP 03/09/23 19:27 112 H 18 96 Nasal Cannula 03/09/23 19:10 120 H 03/09/23 19:05 36.6 C 121 H 32 H 97 Nasal Cannula 03/09/23 18:57 129 H 32 H 259/126 H 96 Room Air O2 Flow Rate FiO2 03/09/23 21:24 03/09/23 21:20 03/09/23 21:10 03/09/23 21:07 03/09/23 21:02 03/09/23 20:50 03/09/23 20:40 03/09/23 20:32 03/09/23 20:30 03/09/23 20:20 03/09/23 20:10 03/09/23 21:30 2 03/09/23 20:23 03/09/23 20:00 03/09/23 19:30 03/09/23 19:11 03/09/23 19:05 03/09/23 19:35 40 03/09/23 19:35 40 03/09/23 19:27 2 03/09/23 19:10 03/09/23 19:05 2 03/09/23 18:57 Laboratory Results Laboratory Results WBC 7.90 K/ul (4.8-10.8) 03/09/23 19:12 RBC 5.21 M/uL (4.20-5.40) 03/09/23 19:12 Hgb 15.8 g/dl (12.0-16.0) 03/09/23 19:12 Hct 42.4 % (37.0-47.0) 03/09/23 19:12 MCV 81.4 fL (80.0-100.0) 03/09/23 19:12 MCH 30.3 pg (25.0-34.0) 03/09/23 19:12 MCHC 37.3 g/dL (32.0-36.0) H 03/09/23 19:12 RDW Std Deviation 32.6 fL (36.4-46.3) L 03/09/23 19:12 RDW Coeff of Morro 11.1 % (11.5-14.5) L 03/09/23 19:12 Plt Count 242 K/uL (130-400) 03/09/23 19:12 MPV 11.0 fL (9.4-12.4) 03/09/23 19:12 Immature Gran % (Auto) 0.6 % 03/09/23 19:12 Neut % (Auto) 81.8 % 03/09/23 19:12 Lymph % (Auto) 7.5 % 03/09/23 19:12 [place] % (Auto) 8.7 % 03/09/23 19:12 Eos % (Auto) 1.0 % 03/09/23 19:12 Baso % (Auto) 0.4 % 03/09/23 19:12 Neut # (Auto) 6.46 K/uL (1.40-6.50) 03/09/23 19:12 Lymph # (Auto) 0.59 K/uL (1.2-3.4) L 03/09/23 19:12 [place] # (Auto) 0.69 K/uL (0.11-0.59) H 03/09/23 19:12 Eos # (Auto) 0.08 K/uL (0-0.50) 03/09/23 19:12 Baso # (Auto) 0.03 K/uL (0-0.2) 03/09/23 19:12 Immature Gran # (Auto) 0.05 K/uL (0.01-0.20) 03/09/23 19:12 PT 10.6 Seconds (9.0-12.0) 03/09/23 19:12 INR 1.0 (0.9-1.1) 03/09/23 19:12 APTT 28.2 Seconds (21.0-31.0) 03/09/23 19:12 PTT Ratio 1.0 03/09/23 19:12 VBG pH 7.30 (7.36-7.41) L 03/09/23 19:13 VBG pCO2 59 mmHg (38-50) H 03/09/23 19:13 VBG pO2 86 mmHg 03/09/23 19:13 VBG HCO3 29 mmol/L 03/09/23 19:13 VBG O2 Saturation 97.4 % 03/09/23 19:13 VBG Base Excess 1.2 mEq/L 03/09/23 19:13 Sodium 119 mmol/L (136-145) L* 03/09/23 21:19 Potassium 3.8 mmol/L (3.5-5.1) 03/09/23 21:19 Chloride 86 mmol/L (98-107) L 03/09/23 21:19 Carbon Dioxide 23 mmol/L (21-32) 03/09/23 21:19 Anion Gap 10 (3-11) 03/09/23 21:19 BUN 9 mg/dl (6-23) 03/09/23 21:19 Creatinine 0.34 mg/dl (0.6-1.2) L 03/09/23 21:19 Est Cr Clr Drug Dosing 101.5 ml/min 03/09/23 21:19 Est GFR ( Amer) 122.8 ml/min 03/09/23 21:19 Est GFR (Non-Af Amer) 106.0 ml/min 03/09/23 21:19 BUN/Creatinine Ratio 26.5 (10-20) H 03/09/23 21:19 Glucose 200 mg/dl (70-99(Fasting)) H 03/09/23 21:19 Osmolality 256 mOsm/kg (280-300) L 03/09/23 19:12 Calcium 8.3 mg/dl (8.6-10.3) L 03/09/23 21:19 Phosphorus 3.0 mg/dl (2.5-4.9) 03/09/23 19:12 Magnesium 1.7 mg/dl (1.7-2.4) 03/09/23 19:12 Total Bilirubin 0.7 mg/dl (0.2-1.0) 03/09/23 19:12 AST 21 U/L (13-39) 03/09/23 19:12 ALT 12 U/L (7-52) 03/09/23 19:12 Alkaline Phosphatase 56 U/L (34-104) 03/09/23 19:12 Troponin I High Sens 11.8 pg/ml (0-14) 03/09/23 19:12 Total Protein 7.9 gm/dl (6.0-8.3) 03/09/23 19:12 Albumin 4.8 gm/dl (3.4-5.0) 03/09/23 19:12 Globulin 3.1 gm/dl (2.5-4.0) 03/09/23 19:12 Albumin/Globulin Ratio 1.5 (0.9-2) 03/09/23 19:12 Lipase 17 U/L (11-82) 03/09/23 19:12 Urine Osmolality 424 mOsm/kg (500-800) L 03/09/23 21:14 Ur Random Sodium 106 mmol/L 03/09/23 21:14 Adenovirus (PCR) Not Detected (NotDetected) 03/09/23 19:59 B. pertussis DNA (PCR) Not Detected (NotDetected) 03/09/23 19:59 B.parapertussis DNA PCR Not Detected (NotDetected) 03/09/23 19:59 C. pneumoniae DNA (PCR) Not Detected (NotDetected) 03/09/23 19:59 Coronavirus OC43 (PCR) Not Detected (NotDetected) 03/09/23 19:59 Coronavirus HKU1 (PCR) Not Detected (NotDetected) 03/09/23 19:59 Coronavirus 229E (PCR) Not Detected (NotDetected) 03/09/23 19:59 SARS-CoV-2 (PCR) Not Detected (NotDetected) 03/09/23 19:59 Coronavirus NL63 (PCR) Not Detected (NotDetected) 03/09/23 19:59 Human Metapneumovir PCR Not Detected (NotDetected) 03/09/23 19:59 Influenza Type A (PCR) Not Detected (NotDetected) 03/09/23 19:59 Influenza Type B (PCR) Not Detected (NotDetected) 03/09/23 19:59 M. pneumoniae (PCR) Not Detected (NotDetected) 03/09/23 19:59 Parainfluenza 1 (PCR) Not Detected (NotDetected) 03/09/23 19:59 Parainfluenza 2 (PCR) Not Detected (NotDetected) 03/09/23 19:59 Parainfluenza 3 (PCR) Not Detected (NotDetected) 03/09/23 19:59 Parainfluenza 4 (PCR) Not Detected (NotDetected) 03/09/23 19:59 RSV (PCR) Not Detected (NotDetected) 03/09/23 19:59 Entero/Rhino (PCR) Not Detected (NotDetected) 03/09/23 19:59 CT chest: 1. No pulmonary embolism. 2. Masslike consolidation within the anterior aspect of the left upper lobe. Differential of pneumonia versus malignancy. 3. Pulmonary nodule at the left lower lobe base measuring 1.9 x 1.6 cm. 4. Severe emphysema. Diagnostic Findings EKG (1906) as per my interpretation : Rate 120, sinus tachycardia, normal axis, LVH, J-point elevation septal leads EKG (2029) as per my interpretation : Rate 130, sinus tachycardia, normal axis, LVH, ST elevation inferior and lateral leads, PVCs
[2023-03-09 22:24] LABS: Appearance Urine Clear (Clear); Bacteria Urine Automated 4+ (Negative); Bilirubin Urine Negative (Negative); Blood Urine 1+ (Negative); Cast Urine Automated 0 /lpf (0-5); Color Urine Yellow; Glucose Urine UA Trace (Negative); Ketones Urine 3+ (Negative); Leukocyte Esterase Urine Negative (Negative); Nitrite Urine Negative (Negative); Protein Urine 2+ (Negative); Specific Gravity Urine 1.012 (1.000-1.030); Urobilinogen Urine Negative (Negative)
--- NOTE | 2023-03-09 22:45 | CT Scan Report ---
Exam(s): CTA CHEST IV Amt: 117ml optiray 320 EXAM: CT Angiography Chest With Intravenous Contrast CLINICAL HISTORY: Reason for exam: acute on chronic resp. failure, CIRILO, r/o PE. TECHNIQUE: Axial computed tomographic angiography images of the chest with intravenous contrast. CTDI is 24 mGy and DLP is 340.72 mGy-cm. Automated exposure control was utilized for the study. A dose lowering technique was utilized adhering to the principles of ALARA. MIP reconstructed images were created and reviewed. COMPARISON: No relevant prior studies available. FINDINGS: Pulmonary arteries: No pulmonary embolism. Aorta: No acute findings.. Normal caliber. No dissection. Lungs: Masslike consolidation within the anterior aspect of the left upper lobe. Differential of pneumonia versus malignancy. Pulmonary nodule at the left lower lobe base measuring 1.9 x 1.6 cm. Severe emphysema. Pleural space: Unremarkable. Heart: Unremarkable. Bones/joints: No acute fracture. Soft tissues: Unremarkable. Lymph nodes: Unremarkable. IMPRESSION: 1. No pulmonary embolism. 2. Masslike consolidation within the anterior aspect of the left upper lobe. Differential of pneumonia versus malignancy. 3. Pulmonary nodule at the left lower lobe base measuring 1.9 x 1.6 cm. 4. Severe emphysema. Electronically signed by: Qasim Parry MD 03/09/23 22:45 PM
[2023-03-09] MEDS ORDERED: cefTRIAXone SODIUM 1,000 MG in DEXTROSE 5% AD-VAN 50 ML IV STA (22:59)
[2023-03-09 23:04] LABS: Base Excess ABG -2.5 mEq/L (-9-1.8); HCO3 ABG 24 mmol/L (19-24); Oxygen Saturation ABG 99.5 % (90-95); PCO2 ABG 48 mmHg (35-46); PO2 ABG 137 mmHg (80-95); pH ABG 7.31 (7.35-7.45)
[2023-03-09] MEDS ORDERED: ALPRAZolam 0.25 MG TABLET PO PRN (23:50)
[2023-03-10] MEDS: POTASSIUM CHLORIDE / WTR 10 MEQ/100 ML PLCT IV SCH ×2 (00:17→01:37)
[2023-03-10] MEDS ORDERED: ALBUMIN 25% 25 GM/100 ML VIAL IV ONE (00:30)
[2023-03-10] MEDS ORDERED: METOPROLOL TARTRATE 1 MG/ML VIAL IV ONE (00:37)
[2023-03-10 00:40] LABS: Allen Test Pos (Pos)
[2023-03-10] MEDS ORDERED: XOPENEX/ATROVENT 1.25mg/0.5MG NEB COMBO NEB SCH (01:00)
[2023-03-10] MEDS ORDERED: SODIUM CHLORIDE 0.9% 1000ML 1,000 ML IV ONE (01:21)
[2023-03-10] MEDS: LEVALBUTEROL 1.25 MG/3 ML NEB NEB SCH ×4 (01:44→19:28)
[2023-03-10] MEDS: IPRATROPIUM BROMIDE NEB SOLN 0.02% 2.5 ML VIAL INH SCH ×4 (01:44→19:28)
[2023-03-10] MEDS ORDERED: METOPROLOL TARTRATE 1 MG/ML VIAL IV STA (04:25)
[2023-03-10] MEDS ORDERED: Heparin IV Adult Wt-Based Standard *NO* Bolus Protocol IV ONE (04:44)
[2023-03-10] MEDS ORDERED: HEPARIN SOD 5,000 UNIT/0.5 ML VIAL SQ SCH (06:00)
[2023-03-10] MEDS: HEPARIN SODIUM/DEXTROSE 25,000 UNITS/500 ML BAG IV SCH (06:03)
[2023-03-10 06:27] LABS: Hematocrit (blood only) 36.7 % (37.0-47.0); Hemoglobin 13.4 g/dl (12.0-16.0); Mean Corpuscular Hemoglobin 29.8 pg (25.0-34.0); Mean Corpuscular Hgb Conc 36.5 g/dL (32.0-36.0); Mean Corpuscular Volume 81.7 fL (80.0-100.0); Mean Platelet Volume 11.1 fL (9.4-12.4); Platelet Count 209 K/uL (130-400); RDW Standard Deviation 32.5 fL (36.4-46.3); Red Blood Count 4.49 M/uL (4.20-5.40)
[2023-03-10 06:29] LABS: BUN Creatinine Ratio 22.9 (10-20); Calcium 9.2 mg/dl (8.6-10.3); Creatinine Clr Calc Pharmacy 95.9 ml/min; Est GFR (African American) 121.7 ml/min; Potassium 4.8 mmol/L (3.5-5.1)
[2023-03-10 06:53] LABS: Partial Thromboplastin Time 27.9 Seconds (21.0-31.0)
[2023-03-10 07:09] LABS: Estimated Average Glucose 114 mg/dl; Hemoglobin A1C 5.6 % (4.5-5.6)
[2023-03-10 07:45] LABS: Immature Granulocytes # (auto) 0.02 K/uL (0.01-0.20); Immature Granulocytes % (auto) 0.4 %; Lymphocytes # (auto) 0.13 K/uL (1.2-3.4); Lymphocytes % (auto) 2.3 %; Neutrophils # (auto) 5.15 K/uL (1.40-6.50); Neutrophils % (auto) 90.3 %
[2023-03-10] MEDS ORDERED: METOPROLOL TARTRATE 1 MG/ML VIAL IV PRN ×2 (07:46→07:59)
--- NOTE | 2023-03-10 07:48 | XRay Report ---
SINGLE VIEW CHEST CLINICAL HISTORY: Atypical chest pain. FINDINGS: An AP, portable, upright chest radiograph is compared to study dated 06/21/2014 and correlat ed with chest CT performed the same day 03/09/2023.. The cardiomediastinal silhouette is unremarkable noting atherosclerotic calcification of the thoracic aorta. Advanced emphysema and chronic interstiti al thickening is similar to previous. There is dense left basilar airspace consolidation. There is a 1.9 cm nodule at the left lung base. No large pleural effusion or pneumothorax is seen. The skeletal structures are osteopenic. The bony thorax is grossly intact. IMPRESSION: 1. Advanced emphysema. 2. Dense airspace consolidation at the left lung base could represent pneumonia/aspiration pneumoniti s versus mass lesion. Clinical correlation will be required and radiographic follow-up to resolution is recommended. 3. There is a 1.9 cm nodule at the left lung base. This is highly suspicious for a pulmonary neoplasm when correlated with today's chest CT. Pulmonology follow-up is recommended. ACT 112: Positive. There are findings on this exam that require communication between the performing entity and the patient following Patient Test Result Information Act ([place] Act 112) guidelines. Electronically signed by: Alen Rapp M.D. 03/10/2023 7:46 AM
[2023-03-10] MEDS: methylPREDNISolone 40 MG in SYRINGE 0 ML IV SCH (08:36)
[2023-03-10] MEDS ORDERED: predniSONE 20 MG TAB PO SCH (09:00)
[2023-03-10] MEDS ORDERED: ASPIRIN 81 MG ECTAB PO SCH (09:00)
[2023-03-10] MEDS: METOPROLOL TARTRATE 25 MG TAB PO SCH ×5 (09:08→21:11)
[2023-03-10] MEDS: DOXYCYCLINE HYCLATE 100 MG CAP PO SCH ×3 (09:08→22:38)
[2023-03-10] MEDS: ASPIRIN 81 MG ECTAB PO SCH (09:08)
--- NOTE | 2023-03-10 10:10 | Pulmonary Consultation ---
Patient seen and examined. EMR reviewed. Agree with assessment plan as noted by PA. Patient can follow-up in the outpatient setting with [facility] pulmonary. She does not desire additional work-up and its unclear how long these radiographic abnormalities have been present. Pulmonary will sign off. Feel free to contact us with questions or concerns Date of Consultation March 10, 2023 Assessment & Plan (1) Acute and chronic respiratory failure with hypercapnia: (2) COPD (chronic obstructive pulmonary disease): (3) Pneumonia: Laterality: left Lung location: upper lobe of lung Pneumonia type: due to unspecified organism Qualified Code(s): J18.9 - Pneumonia, unspecified organism (4) Tobacco abuse: (5) Pulmonary nodule, left: Plan Attending: Dr. Jensen Impression: 77-year-old female that is frail. Past tobacco abuse history since her teenage years of approximate 1 pack/day. Patient quit smoking 4 months ago. Patient currently is not on any home inhalers on a regular basis other than as needed albuterol HFA. Patient does have nocturnal hypoxemia and has an oxygen concentrator at home. She indicates that she has required increased use during the day for shortness of breath. No recent studies have been completed per patient's report. She has followed with [facility] pulmonology and admits to noncompliance. Patient is willing to return to [facility] pulmonology as an outpatient for focus on palliative treatment for her shortness of breath. Patient is aware that she has a pulmonary nodule which is suspicious for cancer and is emphatic that she does not want further work-up and would not want treated for her cancer. Patient has no acute complaints at this time with supplemental oxygen in place. Recommendations: 1. Acute on chronic respiratory failure: * Longstanding tobacco abuse history. Patient quit smoking 4 months ago. She is congratulated for these efforts. * Patient does have supplemental oxygen which she uses at night at 2 L/min by nasal cannula. Would recommend to step prior to discharge as patient most likely require supplemental oxygen * Patient with lung nodule which is suspicious for malignancy. No evidence of necrotic tissue on imaging. No evidence of pulmonary emboli. * Patient does report history of aspiration at home. It certainly would be reasonable to continue antibiotic therapy for aspiration pneumonia for 7 days. * Continue supplementation of oxygen to maintain SaO2 between 88 and 92% 2. Pulmonary nodules: * Patient is aware that she has a left lower lobe nodule measuring 1.9 x 1.6 cm. Shared decision making with patient with granddaughter and niece present. At this time patient would not like to pursue any further work-up or biopsy. Patient is aware that this most likely is malignancy secondary to her tobacco abuse history. Nonetheless, she would elect not to have any treatment including radiation or chemotherapy. No further follow-up at this time. Patient is advised that should she decide to pursue biopsy in the future that this certainly could be arranged as an outpatient. 3. Tobacco abuse history: * Patient states that she has successfully stopped using all tobacco products 4 months ago. She is congratulated on this effort. Continue to abstain from tobacco products. 4. Question of aspiration: * Consider VFSS * Will continue aspiration precautions * Head of bed greater than 30 degrees at all times * Out of bed to chair for all meals * Due to patient's frailty, she may benefit from supervised feedings. Thank you for including us in the care of this patient. At this time, pulmonary service will sign off. Please feel free to reconsult or call with questions. Would recommend outpatient follow-up with [facility] pulmonology on discharge for ongoing management. Please refer to Dr. Jensen's addendum for further recommendations and corrections. History of Present Illness Attending Physician: Abdi Oneal MD History of Present Illness Attending: Dr. Jensen This is a 77-year-old female that was admitted yesterday for acute on chronic respiratory failure with hypercapnia. Patient was on the home oxygen and has a concentrator at home. She has increased use over the past year. Patient has a past medical history including cervical cancer, 6COPD, chin, anxiety. On admission, patient was found to be in hypertensive crisis. She also appeared to have an ST elevated [place]. Cardiac catheterization is on hold at this time as patient is being followed by cardiology. Patient also found to have hyponatremia and hyperglycemia. Patient does follow with [facility] pulmonary and was seen approximately 6 months ago. Per review of record, patient is noncompliant with standard COPD treatments. She has declined PFTs in the past. In 2020 she had a low-dose CT scan which showed a stable left lower lobe nodule measuring 1.8 x 1.5 cm. Patient also was noted to have several subcentimeter pulmonary nodules dating back to September 2017. Patient seen at bedside with granddaughter and with niece. Patient is aware that she has the pulmonary nodule. She has elected not to have work-up in the past and continues to maintain that posture. Patient just quit smoking 4 months ago. She has no desire to resume tobacco use. We did discuss patient's COPD and outpatient management. She has been resistant to follow-up pulmonary in the outpatient setting and is encouraged to continue to see pulmonary to focus on comfort with her breathing. Patient emphatically states that she does not want to heroic measures regarding resuscitation but is open to further discussion regarding ongoing management for known COPD and emphysema. Patient states that she is comfortable at this time with nasal cannula in place and at 2 L/min. Patient has no chest pain or tightness at this time. She has no cough or sputum production. She does complain about malaise and indicates that she has had increased fatigue at home over the last several weeks. Patient denies fever, chills, sweats, rigors. She does state that she sometimes does aspirate when eating. She does also note a decreased appetite. Allergies Allergy/AdvReac Type Severity Reaction Status Date / Time aspirin AdvReac Intermediate NOSE BLEED Verified 03/09/23 19:42 WITH FULL STRENGTH ASA, LOW DOSE OK. Sulfa (Sulfonamide AdvReac Intermediate NOSE Verified 03/09/23 19:39 Antibiotics) BLEEDS PER [facility] MED LIST Home Medications Medication Instructions Recorded Confirmed Type albuterol sulfate 90 mcg/actuation 2 puff inhalation Q4H PRN 08/21/21 03/09/23 History aerosol inhaler Shortness Of Breath Or Wheezing alprazolam 0.25 mg tablet (Xanax) 0.25 mg PO DAILY PRN Anxiety 08/21/21 03/09/23 History aspirin 81 mg tablet,delayed 81 mg PO DAILY 08/21/21 03/09/23 History release acetaminophen 500 mg tablet 500 mg PO DIRECTED PRN Pain 03/09/23 03/09/23 History (Non-Aspirin Pain Relief) Patient History Medical History Anxiety Cervical cancer Chronic respiratory failure COPD (chronic obstructive pulmonary disease) Hernia Pulmonary nodule, left Tobacco abuse Surgical History History of breast lump/mass excision History of surgical removal of pilonidal cyst S/P bilateral breast biopsy S/P cataract extraction S/P hysterectomy Status post bilateral foot surgery Social History Smoking Status: Former smoker Tobacco Type: Cigarettes Age Started Using Tobacco: 13; packs per day: 1.5; Second Hand Exposure: No; Do You Dip or Chew Tobacco: No; Tobacco Cessation Education Requested by Patient: No Hx Alcohol Use: No Hx Substance Use: No Preferred Language: Slovak Communication Ability: Effective Visual Impairment: Limited Hearing Ability: Hard of Hearing Beliefs That Will Affect Care: None marital status: Current Living Situation: Personal Care Facility Current Living Situation Comment: [employer] current occupational status: retired How many Children do You have: 1 How many Children do You have Comment: DAUGHTER UNABLE TO ASSIST MUCH WITH CARE, NIECES ASSIST WITH CARE Other Information That Helps Us Care for You: No Feels Safe at Home: Yes Safety Concerns: Feels Safe At This Time during the past year weight has: decreased > 10 lbs Assistive Devices: Cane, Oxygen - Continuous, Walker and Wheelchair Review of Systems Review of Systems: A total of 10 systems was reviewed and is negative other than as listed in the HPI Physical Exam Physical Exam: GENERAL : No acute distress EYES: No icterus, gaze conjugate NOSE: No evidence of epistaxis MOUTH: No lesions or candidiasis NECK: Supple LUNGS: CTA B/L, no rales or rhonchi. Patient does have a few scattered wheezes which are faint, some of which clear with forced cough. HEART: Regular, rate controlled ABDOMEN: Soft, NT, ND, BS Present EXTREMITIES: No LE edema, pedal pulses intact NEURO: A&OX3 Results & Data Results & Data Vital Signs (Past 12 Hours) Vital Signs Temp Pulse Pulse Resp BP BP Pulse Ox 03/10/23 08:00 107 H 03/10/23 08:00 03/10/23 08:44 96 H 159/96 H 03/10/23 08:05 122 H 184/93 H 03/10/23 07:45 36.7 C 100 H 21 184/93 H 98 03/10/23 07:19 110 H 28 H 98 03/10/23 07:17 115 H 30 H 98 03/10/23 05:20 111 H 143/83 H 03/10/23 03:29 36.3 C L 111 H 15 143/83 H 97 03/10/23 01:46 03/10/23 01:56 112 H 26 H 99 03/10/23 01:56 112 H 99 03/10/23 00:49 120 H 170/82 H 03/09/23 23:57 36.4 C L 120 H 24 170/82 H 99 03/09/23 23:13 120 H 23 111/62 99 03/09/23 22:09 113 H 26 H 98 03/09/23 22:28 123 H 168/88 H O2 Del Method O2 Flow Rate FiO2 03/10/23 08:00 03/10/23 08:00 Nasal Cannula, BiPAP 2 03/10/23 08:44 03/10/23 08:05 03/10/23 07:45 Room Air, CPAP 03/10/23 07:19 30 03/10/23 07:17 BiPAP 30 03/10/23 05:20 03/10/23 03:29 Room Air, CPAP 03/10/23 01:46 BiPAP 03/10/23 01:56 30 03/10/23 01:56 BiPAP 30 03/10/23 00:49 03/09/23 23:57 BiPAP 40 03/09/23 23:13 BiPAP 40 03/09/23 22:09 40 03/09/23 22:28 Diagnostic Findings PG Care Time/CCT Total # of Minutes Spent Total Time Spent with Patient: Total time spent is greater than 50% in coordination of care (as documented) at patient's floor/unit and/or counseling patient: 70 minutes including discussion with granddaughter and niece regarding end-of-life care Coding Level of Care Code 73036 IN/OBS CONSULT LVL 4,60M Diagnoses Acute and chronic respiratory failure with hypercapnia J96.22 COPD (chronic obstructive pulmonary disease) J44.9 Pneumonia J18.9 Laterality: left Lung location: upper lobe of lung Pneumonia type: due to unspecified organism Tobacco abuse Z72.0 Pulmonary nodule, left R91.1 Time Spent (min) 70
--- NOTE | 2023-03-10 11:48 | Nephrology Consultation ---
Date of Consultation March 10, 2023 Assessment & Plan (1) Hyponatremia: presenting sodium 119 yesterday 1900 > goal is sNa no more than 125 this evening. euvolemic hypotonic hyponatremia in setting of severe structural lung disease, malnutrition/low solute diet. -sNa 121 at 0600 after NS; 121 at noon -q6h BMP ordered -maintain eukalemia -observe for now but given HTN will stop NS -added 1.2 L FR to diet orders >await 1800 labs and low threshold to give lasix if improvement stalled -encourage high protein diet -continue strict I/O for now (2) Hypertensive emergency: defer management to cardiology given concern for ACS History of Present Illness Reason for Consultation: hyponatremia Requesting Physician: Dr Oneal Attending Physician: Abdi Oneal MD History of Present Illness 77 y/o F whom I'm asked to see for hyponatremia was admitted here overnight for acute on chronic respiratory failure, hypertensive emergency w/ STEMI, critical hyponatremia w/ presenting sodium 119. PMH includes chronic respiratory failure from severe COPD on home O2, pulmonary nodules 1.8 cm in 2020 LLL, cervical cancer status post surgery, anxiety/depression markedly worse pat few months, past tobacco abuse, nonadherence to medical recommendations per report. after a few days of worsening cough and months of poor/worse health, EMS summoned to pt home for respiratory distress. granddaughter reports pt has not been eating well for weeks; that pt was too weak for days before hospital to get up and get herself food. Pt currently receiving NS at 50 ml/hr. She had 1 L NS in ER as well as a dose of albumin. on meds for COPD exacerbation. pulmonary c/s pending. Cardiology evaluated the pt and she is for medical mgt at this time of apical ballooning cardiomyopathy with ECG ST elevations d/t stress versus ischemia; at risk for HF and likely w/ poor prx. pt denies chest pain; N resolved recently w/ anti emetic; breathing stabilized on 02nc; no edema, no new/worrisome voiding sx; no focal numbness/weakness, no recent falls. 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 she was NPO but has just been started on heart healthy diet. Allergies Allergy/AdvReac Type Severity Reaction Status Date / Time aspirin AdvReac Intermediate NOSE BLEED Verified 03/09/23 19:42 WITH FULL STRENGTH ASA, LOW DOSE OK. Sulfa (Sulfonamide AdvReac Intermediate NOSE Verified 03/09/23 19:39 Antibiotics) BLEEDS PER [facility] MED LIST Home Medications Medication Instructions Recorded Confirmed Type albuterol sulfate 90 mcg/actuation 2 puff inhalation Q4H PRN 08/21/21 03/09/23 History aerosol inhaler Shortness Of Breath Or Wheezing alprazolam 0.25 mg tablet (Xanax) 0.25 mg PO DAILY PRN Anxiety 08/21/21 03/09/23 History aspirin 81 mg tablet,delayed 81 mg PO DAILY 08/21/21 03/09/23 History release acetaminophen 500 mg tablet 500 mg PO DIRECTED PRN Pain 03/09/23 03/09/23 History (Non-Aspirin Pain Relief) Patient History Medical History Anxiety Cervical cancer Chronic respiratory failure COPD (chronic obstructive pulmonary disease) Hernia Pulmonary nodule, left Tobacco abuse Surgical History History of breast lump/mass excision History of surgical removal of pilonidal cyst S/P bilateral breast biopsy S/P cataract extraction S/P hysterectomy Status post bilateral foot surgery Social History Smoking Status: Former smoker Tobacco Type: Cigarettes Age Started Using Tobacco: 13; packs per day: 1.5; Second Hand Exposure: No; Do You Dip or Chew Tobacco: No; Tobacco Cessation Education Requested by Patient: No Hx Alcohol Use: No Hx Substance Use: No Preferred Language: Estonian Communication Ability: Effective Visual Impairment: Limited Hearing Ability: Hard of Hearing Beliefs That Will Affect Care: None marital status: Current Living Situation: Personal Care Facility Current Living Situation Comment: [employer] current occupational status: retired How many Children do You have: 1 How many Children do You have Comment: DAUGHTER UNABLE TO ASSIST MUCH WITH CARE, NIECES ASSIST WITH CARE Other Information That Helps Us Care for You: No Feels Safe at Home: Yes Safety Concerns: Feels Safe At This Time during the past year weight has: decreased > 10 lbs Assistive Devices: Cane, Oxygen - Continuous, Walker and Wheelchair Review of Systems Review of Systems: All systems reviewed & are unremarkable except as noted in HPI & below Physical Exam Constitutional: well developed, + cachectic, + frail appearing and cooperative; no acute distress Eyes: EOM intact bilaterally ENMT: Ears: no external ear abnormality Nose: no external nose abnormality Mouth: + dry oral mucous membranes Neck: no nuchal rigidity Respiratory: normal respiratory effort Auscultation: + diminished lung sounds Gastrointestinal (Abdomen): Inspection/Auscultation: normal bowel sounds Percussion/Palpation: abdomen soft; abdomen nontender Musculoskeletal: Extremities: strength 5/5 throughout Skin: no rashes, warm and dry Neurologic: brady, fluent speech, no tremor Results & Data Vital Signs (Past 12 Hours) Vital Signs Temp Pulse Pulse Resp BP BP Pulse Ox 03/10/23 08:00 107 H 03/10/23 08:00 03/10/23 08:44 96 H 159/96 H 03/10/23 08:05 122 H 184/93 H 03/10/23 07:45 36.7 C 100 H 21 184/93 H 98 03/10/23 07:19 110 H 28 H 98 03/10/23 07:17 115 H 30 H 98 03/10/23 05:20 111 H 143/83 H 03/10/23 03:29 36.3 C L 111 H 15 143/83 H 97 03/10/23 01:46 03/10/23 01:56 112 H 26 H 99 03/10/23 01:56 112 H 99 03/10/23 00:49 120 H 170/82 H 03/09/23 23:57 36.4 C L 120 H 24 170/82 H 99 O2 Del Method O2 Flow Rate FiO2 03/10/23 08:00 03/10/23 08:00 Nasal Cannula, BiPAP 2 03/10/23 08:44 03/10/23 08:05 03/10/23 07:45 Room Air, CPAP 03/10/23 07:19 30 03/10/23 07:17 BiPAP 30 03/10/23 05:20 03/10/23 03:29 Room Air, CPAP 03/10/23 01:46 BiPAP 03/10/23 01:56 30 03/10/23 01:56 BiPAP 30 03/10/23 00:49 03/09/23 23:57 BiPAP 40 Laboratory Results 03/10/23 05:43 03/10/23 05:43 urine studie sreviewed Diagnostic Findings cxr 1. Advanced emphysema. 2. Dense airspace consolidation at the left lung base could represent pneumonia/aspiration pneumonitis versus mass lesion. Clinical correlation will be required and radiographic follow-up to resolution is recommended. 3. There is a 1.9 cm nodule at the left lung base. This is highly suspicious for a pulmonary neoplasm when correlated with today's chest CT. Pulmonology follow- up is recommended. Chest CTA 1. No pulmonary embolism. 2. Masslike consolidation within the anterior aspect of the left upper lobe. Differential of pneumonia versus malignancy. 3. Pulmonary nodule at the left lower lobe base measuring 1.9 x 1.6 cm. 4. Severe emphysema.
--- NOTE | 2023-03-10 11:51 | Cardiology Consultation ---
Date of Consultation March 10, 2023 Assessment & Plan (1) ST elevation on ECG: (2) Hypertensive emergency: (3) Apical ballooning syndrome: (4) Acute and chronic respiratory failure with hypercapnia: (5) COPD (chronic obstructive pulmonary disease): Plan Patient is a chronically and acutely ill 77-year-old female with severe COPD who presented with hypercapnic and hypoxic respiratory failure, hypertensive urgency. 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 Patient has been managed conservatively from ischemic standpoint due to marked metabolic and respiratory issues. Continues to deny any chest pain or discomfort other than persistent dyspnea. EKG abnormalities 16 hours in duration issues addressed as follows 1. 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 Patient is being managed conservative given multiple risk factors and overall frailty. Would continue IV heparin, increase beta-jorge luis for heart rate control, topical nitrates for further blood pressure control. MY inhibitor contraindicated in the setting of hyponatremia Patient currently not in heart failure but at risk for developing such. Current findings on EKG, echo and laboratory testing portray poor prognostic finding. Consider readdressing CODE STATUS History of Present Illness Reason for Consultation: Respiratory failure Requesting Physician: Dr Oneal Attending Physician: Abdi Oneal MD History of Present Illness Patient is a 77-year-old female with ongoing medical concerns 1. Severe chronic obstructive lung disease group D O2 dependent with chronic hypoxic respiratory failure 2. Pulmonary cachexia Patient presents now with acute on chronic worsening of underlying pulmonary disease with worsening cough dyspnea x2 weeks duration. On presentation patient in hypoxic and hypercapnic respiratory failure, hypertensive urgency with metabolic derangements as well including marked hyponatremia. Patient has been treated with BiPAP. EKGs last evening demonstrated anterolateral ST elevation without cardiac symptoms other than dyspnea. Patient managed conservatively EKG today with persistent anterior lateral ST elevation Troponin 1500 Echocardiogram with akinesis to dyskinesis of the mid and apical segments of the left ventricle, ischemic versus apical ballooning cardiomyopathy stress mediated Patient currently on BiPAP. Some difficulties in review of systems due to respiratory distress. Initially declined medications this morning but received IV metoprolol x1 for elevated blood pressure and heart rate. Denies on my exam any chest pain. No arrhythmias on telemetry other than occasional ventricular ectopy Patient has chronic cough and dyspnea with some lapse in pulmonary medications. Denies any fevers or chills or productive cough Imaging studies suggestive of mass versus pneumonia Allergies Allergy/AdvReac Type Severity Reaction Status Date / Time aspirin AdvReac Intermediate NOSE BLEED Verified 03/09/23 19:42 WITH FULL STRENGTH ASA, LOW DOSE OK. Sulfa (Sulfonamide AdvReac Intermediate NOSE Verified 03/09/23 19:39 Antibiotics) BLEEDS PER [facility] Home Medications Medication Instructions Recorded Confirmed Type albuterol sulfate 90 mcg/actuation 2 puff inhalation Q4H PRN 08/21/21 03/09/23 History aerosol inhaler Shortness Of Breath Or Wheezing alprazolam 0.25 mg tablet (Xanax) 0.25 mg PO DAILY PRN Anxiety 08/21/21 03/09/23 History aspirin 81 mg tablet,delayed 81 mg PO DAILY 08/21/21 03/09/23 History release acetaminophen 500 mg tablet 500 mg PO DIRECTED PRN Pain 03/09/23 03/09/23 History (Non-Aspirin Pain Relief) Patient History Medical History Anxiety Cervical cancer Chronic respiratory failure COPD (chronic obstructive pulmonary disease) Hernia Pulmonary nodule, left Tobacco abuse Surgical History History of breast lump/mass excision History of surgical removal of pilonidal cyst S/P bilateral breast biopsy S/P cataract extraction S/P hysterectomy Status post bilateral foot surgery Social History Smoking Status: Former smoker Tobacco Type: Cigarettes Age Started Using Tobacco: 13; packs per day: 1.5; Second Hand Exposure: No; Do You Dip or Chew Tobacco: No; Tobacco Cessation Education Requested by Patient: No Hx Alcohol Use: No Hx Substance Use: No Preferred Language: Bengali Communication Ability: Effective Visual Impairment: Limited Hearing Ability: Hard of Hearing Beliefs That Will Affect Care: None marital status: Current Living Situation: Personal Care Facility Current Living Situation Comment: [address] current occupational status: retired How many Children do You have: 1 How many Children do You have Comment: DAUGHTER UNABLE TO ASSIST MUCH WITH CARE, NIECES ASSIST WITH CARE Other Information That Helps Us Care for You: No Feels Safe at Home: Yes Safety Concerns: Feels Safe At This Time during the past year weight has: decreased > 10 lbs Assistive Devices: Oxygen - Continuous Review of Systems Review of Systems: Unobtainable due to mental health condition Physical Exam Constitutional: + ill appearing, + thin and + in distress Wearing BiPAP ENMT: external ear and nose normal, oropharynx normal Neck: trachea midline, no thyromegaly Respiratory: Auscultation: + diminished lung sounds (Markedly reduced breath sound) Cardiovascular: Rate/Rhythm: regular rate and + tachycardic Heart Sounds: normal S1 and normal S2 Vessels: no JVD Extremities: no edema Gastrointestinal (Abdomen): normal bowel sounds, soft, nontender, no hepatosplenomegaly Results & Data Vital Signs (Past 12 Hours) Vital Signs Temp Pulse Pulse Resp BP BP Pulse Ox 03/10/23 11:45 113 H 20 175/108 H 98 03/10/23 08:00 107 H 03/10/23 08:00 03/10/23 08:44 96 H 159/96 H 03/10/23 08:05 122 H 184/93 H 03/10/23 07:45 36.7 C 100 H 21 184/93 H 98 03/10/23 07:19 110 H 28 H 98 03/10/23 07:17 115 H 30 H 98 03/10/23 05:20 111 H 143/83 H 03/10/23 03:29 36.3 C L 111 H 15 143/83 H 97 03/10/23 01:46 03/10/23 01:56 112 H 26 H 99 03/10/23 01:56 112 H 99 03/10/23 00:49 120 H 170/82 H 03/09/23 23:57 36.4 C L 120 H 24 170/82 H 99 O2 Del Method O2 Flow Rate FiO2 03/10/23 11:45 Nasal Cannula 3 03/10/23 08:00 03/10/23 08:00 Nasal Cannula, BiPAP 2 03/10/23 08:44 03/10/23 08:05 03/10/23 07:45 Room Air, CPAP 03/10/23 07:19 30 03/10/23 07:17 BiPAP 30 03/10/23 05:20 03/10/23 03:29 Room Air, CPAP 03/10/23 01:46 BiPAP 03/10/23 01:56 30 03/10/23 01:56 BiPAP 30 03/10/23 00:49 03/09/23 23:57 BiPAP 40 Laboratory Results Laboratory Results - last 24 hr 03/09/23 03/09/23 03/09/23 19:12 19:12 19:12 WBC 7.90 RBC 5.21 Hgb 15.8 Hct 42.4 MCV 81.4 MCH 30.3 MCHC 37.3 H RDW Std Deviation 32.6 L RDW Coeff of [place] 11.1 L Plt Count 242 MPV 11.0 Immature Gran % (Auto) 0.6 Neut % (Auto) 81.8 Lymph % (Auto) 7.5 [place] % (Auto) 8.7 Eos % (Auto) 1.0 Baso % (Auto) 0.4 Neut # (Auto) 6.46 Lymph # (Auto) 0.59 L [place] # (Auto) 0.69 H Eos # (Auto) 0.08 Baso # (Auto) 0.03 Immature Gran # (Auto) 0.05 PT INR APTT PTT Ratio ABG pH ABG pCO2 ABG pO2 ABG HCO3 ABG O2 Saturation ABG Base Excess Pierre Test VBG pH VBG pCO2 VBG pO2 VBG HCO3 VBG O2 Saturation VBG Base Excess Oxygen Given Sodium 118 L* Potassium 4.1 Chloride 81 L Carbon Dioxide 26 Anion Gap 11 BUN 10 Creatinine 0.36 L Est Cr Clr Drug Dosing 95.9 Est GFR ( Amer) 120.6 Est GFR (Non-Af Amer) 104.0 BUN/Creatinine Ratio 27.8 H Glucose 130 H Estimat Average Glucose Hemoglobin A1c Osmolality 256 L Calcium 9.7 Phosphorus 3.0 Magnesium 1.7 Total Bilirubin 0.7 AST 21 ALT 12 Alkaline Phosphatase 56 Troponin I High Sens 11.8 Total Protein 7.9 Albumin 4.8 Globulin 3.1 Albumin/Globulin Ratio 1.5 Lipase 17 TSH Urine Color Urine Appearance Urine pH Ur Specific [place] Urine Protein Urine Glucose (UA) Urine Ketones Urine Blood Urine Nitrite Urine Bilirubin Urine Urobilinogen Ur Leukocyte Esterase Urine WBC (Auto) Urine RBC (Auto) U Hyaline Cast (Auto) U Epithel Cells (Auto) Urine Bacteria (Auto) Urine Osmolality Ur Random Sodium Adenovirus (PCR) B. pertussis DNA (PCR) B.parapertussis DNA PCR C. pneumoniae DNA (PCR) Coronavirus OC43 (PCR) Coronavirus HKU1 (PCR) Coronavirus 229E (PCR) SARS-CoV-2 (PCR) Coronavirus NL63 (PCR) Human Metapneumovir PCR Influenza Type A (PCR) Influenza Type B (PCR) M. pneumoniae (PCR) Parainfluenza 1 (PCR) Parainfluenza 2 (PCR) Parainfluenza 3 (PCR) Parainfluenza 4 (PCR) RSV (PCR) Entero/Rhino (PCR) 03/09/23 03/09/23 03/09/23 19:12 19:12 19:13 WBC RBC Hgb Hct MCV MCH MCHC RDW Std Deviation RDW Coeff of [place] Plt Count MPV Immature Gran % (Auto) Neut % (Auto) Lymph % (Auto) [place] % (Auto) Eos % (Auto) Baso % (Auto) Neut # (Auto) Lymph # (Auto) [place] # (Auto) Eos # (Auto) Baso # (Auto) Immature Gran # (Auto) PT 10.6 INR 1.0 APTT 28.2 PTT Ratio 1.0 ABG pH ABG pCO2 ABG pO2 ABG HCO3 ABG O2 Saturation ABG Base Excess Pierre Test VBG pH 7.30 L VBG pCO2 59 H VBG pO2 86 VBG HCO3 29 VBG O2 Saturation 97.4 VBG Base Excess 1.2 Oxygen Given Sodium Potassium Chloride Carbon Dioxide Anion Gap BUN Creatinine Est Cr Clr Drug Dosing Est GFR ( Amer) Est GFR (Non-Af Amer) BUN/Creatinine Ratio Glucose Estimat Average Glucose Hemoglobin A1c Osmolality Calcium Phosphorus Magnesium Total Bilirubin AST ALT Alkaline Phosphatase Troponin I High Sens Total Protein Albumin Globulin Albumin/Globulin Ratio Lipase TSH 0.372 Urine Color Urine Appearance Urine pH Ur Specific [place] Urine Protein Urine Glucose (UA) Urine Ketones Urine Blood Urine Nitrite Urine Bilirubin Urine Urobilinogen Ur Leukocyte Esterase Urine WBC (Auto) Urine RBC (Auto) U Hyaline Cast (Auto) U Epithel Cells (Auto) Urine Bacteria (Auto) Urine Osmolality Ur Random Sodium Adenovirus (PCR) B. pertussis DNA (PCR) B.parapertussis DNA PCR C. pneumoniae DNA (PCR) Coronavirus OC43 (PCR) Coronavirus HKU1 (PCR) Coronavirus 229E (PCR) SARS-CoV-2 (PCR) Coronavirus NL63 (PCR) Human Metapneumovir PCR Influenza Type A (PCR) Influenza Type B (PCR) M. pneumoniae (PCR) Parainfluenza 1 (PCR) Parainfluenza 2 (PCR) Parainfluenza 3 (PCR) Parainfluenza 4 (PCR) RSV (PCR) Entero/Rhino (PCR) 03/09/23 03/09/23 03/09/23 19:59 21:14 21:14 WBC RBC Hgb Hct MCV MCH MCHC RDW Std Deviation RDW Coeff of [place] Plt Count MPV Immature Gran % (Auto) Neut % (Auto) Lymph % (Auto) [place] % (Auto) Eos % (Auto) Baso % (Auto) Neut # (Auto) Lymph # (Auto) [place] # (Auto) Eos # (Auto) Baso # (Auto) Immature Gran # (Auto) PT INR APTT PTT Ratio ABG pH ABG pCO2 ABG pO2 ABG HCO3 ABG O2 Saturation ABG Base Excess Pierre Test VBG pH VBG pCO2 VBG pO2 VBG HCO3 VBG O2 Saturation VBG Base Excess Oxygen Given Sodium Potassium Chloride Carbon Dioxide Anion Gap BUN Creatinine Est Cr Clr Drug Dosing Est GFR ( Amer) Est GFR (Non-Af Amer) BUN/Creatinine Ratio Glucose Estimat Average Glucose Hemoglobin A1c Osmolality Calcium Phosphorus Magnesium Total Bilirubin AST ALT Alkaline Phosphatase Troponin I High Sens Total Protein Albumin Globulin Albumin/Globulin Ratio Lipase TSH Urine Color Urine Appearance Urine pH Ur Specific [place] Urine Protein Urine Glucose (UA) Urine Ketones Urine Blood Urine Nitrite Urine Bilirubin Urine Urobilinogen Ur Leukocyte Esterase Urine WBC (Auto) Urine RBC (Auto) U Hyaline Cast (Auto) U Epithel Cells (Auto) Urine Bacteria (Auto) Urine Osmolality 424 L Ur Random Sodium 106 Adenovirus (PCR) Not Detected B. pertussis DNA (PCR) Not Detected B.parapertussis DNA PCR Not Detected C. pneumoniae DNA (PCR) Not Detected Coronavirus OC43 (PCR) Not Detected Coronavirus HKU1 (PCR) Not Detected Coronavirus 229E (PCR) Not Detected SARS-CoV-2 (PCR) Not Detected Coronavirus NL63 (PCR) Not Detected Human Metapneumovir PCR Not Detected Influenza Type A (PCR) Not Detected Influenza Type B (PCR) Not Detected M. pneumoniae (PCR) Not Detected Parainfluenza 1 (PCR) Not Detected Parainfluenza 2 (PCR) Not Detected Parainfluenza 3 (PCR) Not Detected Parainfluenza 4 (PCR) Not Detected RSV (PCR) Not Detected Entero/Rhino (PCR) Not Detected 03/09/23 03/09/23 03/09/23 21:14 21:19 21:19 WBC RBC Hgb Hct MCV MCH MCHC RDW Std Deviation RDW Coeff of [place] Plt Count MPV Immature Gran % (Auto) Neut % (Auto) Lymph % (Auto) [place] % (Auto) Eos % (Auto) Baso % (Auto) Neut # (Auto) Lymph # (Auto) [place] # (Auto) Eos # (Auto) Baso # (Auto) Immature Gran # (Auto) PT INR APTT PTT Ratio ABG pH ABG pCO2 ABG pO2 ABG HCO3 ABG O2 Saturation ABG Base Excess Pierre Test VBG pH VBG pCO2 VBG pO2 VBG HCO3 VBG O2 Saturation VBG Base Excess Oxygen Given Sodium 119 L* Potassium 3.8 Chloride 86 L Carbon Dioxide 23 Anion Gap 10 BUN 9 Creatinine 0.34 L Est Cr Clr Drug Dosing 101.5 Est GFR ( Amer) 122.8 Est GFR (Non-Af Amer) 106.0 BUN/Creatinine Ratio 26.5 H Glucose 200 H Estimat Average Glucose Hemoglobin A1c Osmolality Calcium 8.3 L Phosphorus Magnesium Total Bilirubin AST ALT Alkaline Phosphatase Troponin I High Sens 121.2 H* D Total Protein Albumin Globulin Albumin/Globulin Ratio Lipase TSH Urine Color Yellow Urine Appearance Clear Urine pH 6.0 Ur Specific [place] 1.012 Urine Protein 2+ H Urine Glucose (UA) Trace H Urine Ketones 3+ H Urine Blood 1+ H Urine Nitrite Negative Urine Bilirubin Negative Urine Urobilinogen Negative Ur Leukocyte Esterase Negative Urine WBC (Auto) 1-5 Urine RBC (Auto) 5-10 H U Hyaline Cast (Auto) 0 U Epithel Cells (Auto) 10-20 H Urine Bacteria (Auto) 4+ H Urine Osmolality Ur Random Sodium Adenovirus (PCR) B. pertussis DNA (PCR) B.parapertussis DNA PCR C. pneumoniae DNA (PCR) Coronavirus OC43 (PCR) Coronavirus HKU1 (PCR) Coronavirus 229E (PCR) SARS-CoV-2 (PCR) Coronavirus NL63 (PCR) Human Metapneumovir PCR Influenza Type A (PCR) Influenza Type B (PCR) M. pneumoniae (PCR) Parainfluenza 1 (PCR) Parainfluenza 2 (PCR) Parainfluenza 3 (PCR) Parainfluenza 4 (PCR) RSV (PCR) Entero/Rhino (PCR) 03/09/23 03/09/23 03/10/23 21:20 22:59 00:40 WBC RBC Hgb Hct MCV MCH MCHC RDW Std Deviation RDW Coeff of [place] Plt Count MPV Immature Gran % (Auto) Neut % (Auto) Lymph % (Auto) [place] % (Auto) Eos % (Auto) Baso % (Auto) Neut # (Auto) Lymph # (Auto) [place] # (Auto) Eos # (Auto) Baso # (Auto) Immature Gran # (Auto) PT INR APTT PTT Ratio ABG pH 7.31 L ABG pCO2 48 H ABG pO2 137 H ABG HCO3 24 ABG O2 Saturation 99.5 H ABG Base Excess -2.5 Pierre Test Pos VBG pH VBG pCO2 VBG pO2 VBG HCO3 VBG O2 Saturation VBG Base Excess Oxygen Given 2 L Sodium 118 L* Potassium Chloride Carbon Dioxide Anion Gap BUN Creatinine Est Cr Clr Drug Dosing Est GFR ( Amer) Est GFR (Non-Af Amer) BUN/Creatinine Ratio Glucose Estimat Average Glucose 114 Hemoglobin A1c 5.6 Osmolality Calcium Phosphorus Magnesium Total Bilirubin AST ALT Alkaline Phosphatase Troponin I High Sens Total Protein Albumin Globulin Albumin/Globulin Ratio Lipase TSH Urine Color Urine Appearance Urine pH Ur Specific [place] Urine Protein Urine Glucose (UA) Urine Ketones Urine Blood Urine Nitrite Urine Bilirubin Urine Urobilinogen Ur Leukocyte Esterase Urine WBC (Auto) Urine RBC (Auto) U Hyaline Cast (Auto) U Epithel Cells (Auto) Urine Bacteria (Auto) Urine Osmolality Ur Random Sodium Adenovirus (PCR) B. pertussis DNA (PCR) B.parapertussis DNA PCR C. pneumoniae DNA (PCR) Coronavirus OC43 (PCR) Coronavirus HKU1 (PCR) Coronavirus 229E (PCR) SARS-CoV-2 (PCR) Coronavirus NL63 (PCR) Human Metapneumovir PCR Influenza Type A (PCR) Influenza Type B (PCR) M. pneumoniae (PCR) Parainfluenza 1 (PCR) Parainfluenza 2 (PCR) Parainfluenza 3 (PCR) Parainfluenza 4 (PCR) RSV (PCR) Entero/Rhino (PCR) 03/10/23 03/10/23 03/10/23 05:43 05:43 05:43 WBC 5.70 RBC 4.49 Hgb 13.4 Hct 36.7 L MCV 81.7 MCH 29.8 MCHC 36.5 H RDW Std Deviation 32.5 L RDW Coeff of [place] 11.0 L Plt Count 209 MPV 11.1 Immature Gran % (Auto) 0.4 Neut % (Auto) 90.3 Lymph % (Auto) 2.3 [place] % (Auto) 7.0 Eos % (Auto) 0.0 Baso % (Auto) 0.0 Neut # (Auto) 5.15 Lymph # (Auto) 0.13 L [place] # (Auto) 0.40 Eos # (Auto) 0.00 Baso # (Auto) 0.00 Immature Gran # (Auto) 0.02 PT INR APTT 27.9 PTT Ratio 1.0 ABG pH ABG pCO2 ABG pO2 ABG HCO3 ABG O2 Saturation ABG Base Excess Pierre Test VBG pH VBG pCO2 VBG pO2 VBG HCO3 VBG O2 Saturation VBG Base Excess Oxygen Given Sodium 121 L Potassium 4.8 D Chloride 87 L Carbon Dioxide 25 Anion Gap 9 BUN 8 Creatinine 0.35 L Est Cr Clr Drug Dosing 95.9 Est GFR ( Amer) 121.7 Est GFR (Non-Af Amer) 105.0 BUN/Creatinine Ratio 22.9 H Glucose 129 H Estimat Average Glucose Hemoglobin A1c Osmolality Calcium 9.2 Phosphorus Magnesium Total Bilirubin AST ALT Alkaline Phosphatase Troponin I High Sens Total Protein Albumin Globulin Albumin/Globulin Ratio Lipase TSH Urine Color Urine Appearance Urine pH Ur Specific [place] Urine Protein Urine Glucose (UA) Urine Ketones Urine Blood Urine Nitrite Urine Bilirubin Urine Urobilinogen Ur Leukocyte Esterase Urine WBC (Auto) Urine RBC (Auto) U Hyaline Cast (Auto) U Epithel Cells (Auto) Urine Bacteria (Auto) Urine Osmolality Ur Random Sodium Adenovirus (PCR) B. pertussis DNA (PCR) B.parapertussis DNA PCR C. pneumoniae DNA (PCR) Coronavirus OC43 (PCR) Coronavirus HKU1 (PCR) Coronavirus 229E (PCR) SARS-CoV-2 (PCR) Coronavirus NL63 (PCR) Human Metapneumovir PCR Influenza Type A (PCR) Influenza Type B (PCR) M. pneumoniae (PCR) Parainfluenza 1 (PCR) Parainfluenza 2 (PCR) Parainfluenza 3 (PCR) Parainfluenza 4 (PCR) RSV (PCR) Entero/Rhino (PCR) 03/10/23 05:43 WBC RBC Hgb Hct MCV MCH MCHC RDW Std Deviation RDW Coeff of [place] Plt Count MPV Immature Gran % (Auto) Neut % (Auto) Lymph % (Auto) [place] % (Auto) Eos % (Auto) Baso % (Auto) Neut # (Auto) Lymph # (Auto) [place] # (Auto) Eos # (Auto) Baso # (Auto) Immature Gran # (Auto) PT INR APTT PTT Ratio ABG pH ABG pCO2 ABG pO2 ABG HCO3 ABG O2 Saturation ABG Base Excess Pierre Test VBG pH VBG pCO2 VBG pO2 VBG HCO3 VBG O2 Saturation VBG Base Excess Oxygen Given Sodium Potassium Chloride Carbon Dioxide Anion Gap BUN Creatinine Est Cr Clr Drug Dosing Est GFR ( Amer) Est GFR (Non-Af Amer) BUN/Creatinine Ratio Glucose Estimat Average Glucose Hemoglobin A1c Osmolality Calcium Phosphorus Magnesium Total Bilirubin AST ALT Alkaline Phosphatase Troponin I High Sens 1546.1 H* D Total Protein Albumin Globulin Albumin/Globulin Ratio Lipase TSH Urine Color Urine Appearance Urine pH Ur Specific [place] Urine Protein Urine Glucose (UA) Urine Ketones Urine Blood Urine Nitrite Urine Bilirubin Urine Urobilinogen Ur Leukocyte Esterase Urine WBC (Auto) Urine RBC (Auto) U Hyaline Cast (Auto) U Epithel Cells (Auto) Urine Bacteria (Auto) Urine Osmolality Ur Random Sodium Adenovirus (PCR) B. pertussis DNA (PCR) B.parapertussis DNA PCR C. pneumoniae DNA (PCR) Coronavirus OC43 (PCR) Coronavirus HKU1 (PCR) Coronavirus 229E (PCR) SARS-CoV-2 (PCR) Coronavirus NL63 (PCR) Human Metapneumovir PCR Influenza Type A (PCR) Influenza Type B (PCR) M. pneumoniae (PCR) Parainfluenza 1 (PCR) Parainfluenza 2 (PCR) Parainfluenza 3 (PCR) Parainfluenza 4 (PCR) RSV (PCR) Entero/Rhino (PCR)
--- NOTE | 2023-03-10 12:20 | Electrocardiogram Report ---
Test Reason : Blood Pressure : / mmHG Vent. Rate : 120 BPM Atrial Rate : 120 BPM P-R Int : 130 ms QRS Dur : 102 ms QT Int : 336 ms P-R-T Axes : 070 082 051 degrees QTc Int : 474 ms Poor data quality, interpretation may be adversely affected Sinus tachycardia Biatrial enlargement Minimal voltage criteria for LVH, may be normal variant ( [place] product ) Abnormal ECG When compared with ECG of 21-JUN-2014 09:16, No significant change was found Confirmed by Mir Samaniego ([id number]) on 03/10/2023 12:19:51 PM Referred By: REFERRED SELF Confirmed By:Mir Samaniego
--- NOTE | 2023-03-10 12:23 | Electrocardiogram Report ---
Test Reason : Blood Pressure : / mmHG Vent. Rate : 128 BPM Atrial Rate : 128 BPM P-R Int : 130 ms QRS Dur : 092 ms QT Int : 316 ms P-R-T Axes : 074 086 011 degrees QTc Int : 461 ms Poor data quality, interpretation may be adversely affected Sinus tachycardia with frequent Premature ventricular complexes in a pattern of bigeminy Minimal voltage criteria for LVH, may be normal variant ( [place] product ) ST elevation, consider early repolarization, pericarditis, or injury Abnormal ECG When compared with ECG of 09-MAR-2023 19:07, (unconfirmed) Premature ventricular complexes are now Present T wave inversion now evident in Inferior leads Confirmed by Mir Samaniego ([id number]) on 03/10/2023 12:22:43 PM Referred By: REFERRED SELF Confirmed By:Mir Samaniego
--- NOTE | 2023-03-10 12:24 | Electrocardiogram Report ---
Test Reason : Blood Pressure : / mmHG Vent. Rate : 132 BPM Atrial Rate : 132 BPM P-R Int : 120 ms QRS Dur : 094 ms QT Int : 316 ms P-R-T Axes : 086 081 061 degrees QTc Int : 468 ms Poor data quality, interpretation may be adversely affected Sinus tachycardia Possible Left atrial enlargement Minimal voltage criteria for LVH, may be normal variant ( [place] product ) ST elevation consider anterolateral injury or acute infarct ST elevation consider inferior injury or acute infarct ACUTE PA / STEMI Abnormal ECG When compared with ECG of 09-MAR-2023 20:30, (unconfirmed) Premature ventricular complexes are no longer Present ST elevation now present in Inferior leads ST more elevated in Lateral leads T wave inversion no longer evident in Inferior leads Confirmed by Mir Samaniego ([id number]) on 03/10/2023 12:23:48 PM Referred By: REFERRED SELF Confirmed By:Mir Samaniego
--- NOTE | 2023-03-10 12:35 | Electrocardiogram Report ---
Test Reason : Blood Pressure : / mmHG Vent. Rate : 123 BPM Atrial Rate : 123 BPM P-R Int : 120 ms QRS Dur : 096 ms QT Int : 308 ms P-R-T Axes : 084 084 076 degrees QTc Int : 440 ms Sinus tachycardia Possible Anterior infarct , new ACUTE OR / STEMI Abnormal ECG When compared with ECG of 09-MAR-2023 20:46, (unconfirmed) Serial changes of evolving Anterior infarct Confirmed by Mir Samaniego ([id number]) on 03/10/2023 12:35:00 PM Referred By: REFERRED SELF Confirmed By:Mir Samaniego
[2023-03-10] MEDS: NITROGLYCERIN 2% OINTMENT 30GM TUBE EXT SCH ×2 (12:39→17:31)
[2023-03-10 12:55] LABS: BUN Creatinine Ratio 29.4 (10-20); Calcium 9.3 mg/dl (8.6-10.3); Creatinine Clr Calc Pharmacy 98.7 ml/min; Est GFR (African American) 122.8 ml/min; Potassium 4.6 mmol/L (3.5-5.1)
--- NOTE | 2023-03-10 13:09 | Hospitalist Progress Note ---
Date of Service March 10, 2023 Assessment & Plan (1) ST elevation on ECG: (2) Apical ballooning syndrome: (3) Acute and chronic respiratory failure: (4) Mass of left lung: (5) Pulmonary nodule, left: (6) Pneumonia: (7) Tobacco abuse: (8) COPD (chronic obstructive pulmonary disease): (9) Hyponatremia: Plan 77 year old female presenting to the ED with SOB with worsening productive cough for few days. S/p BIPAP for respiratory distress. CT chest 1. No pulmonary embolism. 2. Masslike consolidation within the anterior aspect of the left upper lobe. Differential of pneumonia versus malignancy. 3. Pulmonary nodule at the left lower lobe base measuring 1.9 x 1.6 cm. 4. Severe emphysema. 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 Basilar segments are hyperdynamic. RVSP at 50-60 mm Hg. Plan: Acute on chronic respiratory failure with hypoxia- Respi biofire negative. CT with severe emphysema and KAYKAY mass. S/p BIPAP and now on NC 2L which is her home requirement. Continue antibiotic. BIPAP prn. 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 EKG, Echo and trop trend noted. Seen by cardio- considering her multiple risk factors and frailty, recommended conservative management with heparin drip, BB, topical nitrates, aspirin and BP control. Poor prognosis per cardio. Discussed with patient and niece at bedside Hyponatremia- Na 118->119->121. Nephro managing. Left upper lobe lung mass- PNA vs malignancy. CT personally reviewed. Pulmonary following- final recs awaited. Continue empiric ABx Hypertensive urgency- improved. continue current meds. Lung nodule at left lower lung base- needs follow up. Pulm aware. Severe protein-calorie malnutrition-- BMI 15.6. Dietitian eval. DVT ppx- heparin drip Dispo- Continue current level of care. DNR/DNI Updated niece at bedside Admission and Anticipated Discharge Date Admission Date: March 09, 2023 Subjective Patient was seen and examined at bedside. She felt better with BIPAP this morning and had no more chest pain. Again revisited when she was transferred to E2, in presence of her niece- she was on NC and felt okay- she did not have any more chest pain. She was however anxious and was asking for her xanax. She states she takes xanax bid at home 12 am and 12 pm. We discussed about code status and she elected to be DNR/DNI. She also wanted her niece Denise to be her primary contact rather than her daughter or grandkids. Review of Systems Review of Systems: All systems reviewed & are unremarkable except as noted in Subjective Physical Exam Physical Exam: General: Thin frail elderly female, lying comfortably in bed, not in distress, on NC HEENT: EZIO, MMM Chest: Decreased breath sounds bilaterally CVS: Tachycardic, normal heart sounds, no murmur Abdomen: Soft, non tender, not distended, normal bowel sounds Neuro: Awake, alert, oriented, conversing well, non focal Extremities: No cyanosis, clubbing or edema Results & Data Results & Data Vital Signs (Past 12 Hours) Vital Signs Temp Pulse Pulse Resp BP BP Pulse Ox 03/10/23 12:38 171/108 H 03/10/23 12:10 116 H 18 98 03/10/23 11:49 96 H 03/10/23 11:49 03/10/23 11:45 113 H 20 175/108 H 98 03/10/23 08:00 107 H 03/10/23 08:00 03/10/23 08:44 96 H 159/96 H 03/10/23 08:05 122 H 184/93 H 03/10/23 07:45 36.7 C 100 H 21 184/93 H 98 03/10/23 07:19 110 H 28 H 98 03/10/23 07:17 115 H 30 H 98 03/10/23 05:20 111 H 143/83 H 03/10/23 03:29 36.3 C L 111 H 15 143/83 H 97 03/10/23 01:46 03/10/23 01:56 112 H 26 H 99 03/10/23 01:56 112 H 99 O2 Del Method O2 Flow Rate FiO2 03/10/23 12:38 03/10/23 12:10 Nasal Cannula 2 03/10/23 11:49 03/10/23 11:49 Nasal Cannula 3 03/10/23 11:45 Nasal Cannula 3 03/10/23 08:00 03/10/23 08:00 Nasal Cannula, BiPAP 2 03/10/23 08:44 03/10/23 08:05 03/10/23 07:45 Room Air, CPAP 03/10/23 07:19 30 03/10/23 07:17 BiPAP 30 03/10/23 05:20 03/10/23 03:29 Room Air, CPAP 03/10/23 01:46 BiPAP 03/10/23 01:56 30 03/10/23 01:56 BiPAP 30 Laboratory Results Short CBC 03/09/23 03/10/23 Range/Units 19:12 05:43 WBC 7.90 5.70 (4.8-10.8) K/ul Hgb 15.8 13.4 (12.0-16.0) g/dl Hct 42.4 36.7 L (37.0-47.0) % Plt Count 242 209 (130-400) K/uL BMP 03/09/23 03/09/23 03/10/23 19:12 21:19 00:40 Sodium 118 L* 119 L* 118 L* Potassium 4.1 3.8 Chloride 81 L 86 L Carbon Dioxide 26 23 BUN 10 9 Creatinine 0.36 L 0.34 L Glucose 130 H 200 H Calcium 9.7 8.3 L 03/10/23 03/10/23 05:43 12:17 Sodium 121 L 121 L Potassium 4.8 D 4.6 Chloride 87 L 86 L Carbon Dioxide 25 27 BUN 8 10 Creatinine 0.35 L 0.34 L Glucose 129 H 132 H Calcium 9.2 9.3 Liver Function 03/09/23 Range/Units 19:12 Total Bilirubin 0.7 (0.2-1.0) mg/dl AST 21 (13-39) U/L ALT 12 (7-52) U/L Alkaline Phosphatase 56 (34-104) U/L Albumin 4.8 (3.4-5.0) gm/dl Urine 03/09/23 Range/Units 21:14 Urine Color Yellow Urine Appearance Clear (Clear) Urine pH 6.0 (4.5-7.5) Ur Specific [place] 1.012 (1.000-1.030) Urine Protein 2+ H (Negative) Urine Glucose (UA) Trace H (Negative) Diagnostic Findings Chest X-Ray 03/09/23 19:24 SINGLE VIEW CHEST CLINICAL HISTORY: Atypical chest pain. FINDINGS: An AP, portable, upright chest radiograph is compared to study dated 06/21/2014 and correlated with chest CT performed the same day 03/09/2023.. The cardiomediastinal silhouette is unremarkable noting atherosclerotic calcification of the thoracic aorta. Advanced emphysema and chronic interstitial thickening is similar to previous. There is dense left basilar airspace consolidation. There is a 1.9 cm nodule at the left lung base. No large pleural effusion or pneumothorax is seen. The skeletal structures are osteopenic. The bony thorax is grossly intact. IMPRESSION: 1. Advanced emphysema. 2. Dense airspace consolidation at the left lung base could represent pneumonia/aspiration pneumonitis versus mass lesion. Clinical correlation will be required and radiographic follow-up to resolution is recommended. 3. There is a 1.9 cm nodule at the left lung base. This is highly suspicious for a pulmonary neoplasm when correlated with today's chest CT. Pulmonology follow- up is recommended. ACT 112: Positive. There are findings on this exam that require communication between the performing entity and the patient following Patient Test Result Information Act ([place] Act 112) guidelines. Electronically signed by: Alen Rapp M.D. 03/10/2023 7:46 AM Medications Administered Current Inpatient Medications Acetaminophen (Acetaminophen 325 Mg Tab) 650 mg PO Q4H PRN PRN Reason: Pain or Fever Stop: 04/08/23 23:49 Alprazolam (Alprazolam 0.25 Mg Tablet) 0.25 mg PO BID PRN PRN Reason: agitation Stop: 04/09/23 20:59 Last Admin: 03/10/23 13:13 Dose: 0.25 mg Aspirin (Aspirin 81 Mg Ectab) 81 mg PO DAILY [facility] Stop: 04/09/23 08:59 Last Admin: 03/10/23 09:08 Dose: Not Given Doxycycline Hyclate (Doxycycline Hyclate 100 Mg Cap) 100 mg PO BID [facility] Stop: 03/17/23 08:59 Last Admin: 03/10/23 10:37 Dose: 100 mg Ceftriaxone Sodium 1,000 mg/ (Dextrose) 50 mls @ 100 mls/hr IV Q24H QAMAR; Protocol Stop: 03/17/23 22:59 Heparin Sodium/Dextrose (Heparin Sodium/Dextrose) 25,000 units in 500 mls @ 16 mls/hr IV .Q24H QAMAR; Protocol Stop: 04/09/23 04:59 Last Titration: 03/10/23 13:36 Dose: 800 units/hr, 16 mls/hr Methylprednisolone 40 mg/ (Syringe) 0.64 mls @ 1.5 mls/min IV DAILY [facility] Stop: 04/09/23 07:39 Last Admin: 03/10/23 08:36 Dose: 1.5 mls/min Ipratropium [place] (Ipratropium [place] Neb Soln 0.02% 2.5 Ml Vial) 0.5 mg INH Q6R [facility] Stop: 04/09/23 00:59 Last Admin: 03/10/23 12:10 Dose: 0.5 mg Levalbuterol HCl (Levalbuterol 1.25 Mg/3 Ml Neb) 1.25 mg NEB Q6R [facility] Stop: 04/09/23 00:59 Last Admin: 03/10/23 12:10 Dose: 1.25 mg Metoprolol Tartrate (Metoprolol Tartrate 1 Mg/Ml Vial) 5 mg IV Q6 PRN PRN Reason: tachycardia >120 Stop: 04/09/23 11:59 Last Admin: 03/10/23 08:05 Dose: 5 mg Metoprolol Tartrate (Metoprolol Tartrate 25 Mg Tab) 25 mg PO QID [facility] Stop: 04/09/23 12:59 Last Admin: 03/10/23 13:07 Dose: 25 mg Nitroglycerin (Nitroglycerin 2% Ointment 30gm Tube) 1 inch EXT Q6H [facility] Stop: 04/09/23 11:59 Last Admin: 03/10/23 12:39 Dose: 1 inch (6) Pneumonia Laterality: left Lung location: upper lobe of lung Pneumonia type: due to unspecified organism Qualified Code(s): J18.9 - Pneumonia, unspecified organism
[2023-03-10] MEDS: ALPRAZolam 0.25 MG TABLET PO PRN (13:13)
--- NOTE | 2023-03-10 13:16 | Communication Note ---
Date of Service: March 10, 2023 I spoke to the patient in detail regarding her medical condition and code status. She elected to be DNR/DNI. She also wanted her niece Denise Davis to be the primary contact and the decision maker for her if she is not able to. This was confirmed later in presence of Denise. Updated Denise in detail regarding her current medical condition. She states there is currently toxic relation between the patient and her daughter Adriana. Code status changed to DNR/DNI.
[2023-03-10 13:18] LABS: Partial Thromboplastin Ratio 1.5
[2023-03-10 13:21] LABS: Partial Thromboplastin Time 42.1 Seconds (21.0-31.0)
[2023-03-10] MEDS: ONDANSETRON INJ 2 MG/ML 2 ML VIAL IV PRN (16:18)
[2023-03-10 19:10] LABS: BUN Creatinine Ratio 34.3 (10-20); Calcium 9.1 mg/dl (8.6-10.3); Creatinine Clr Calc Pharmacy 95.9 ml/min; Est GFR (African American) 121.7 ml/min; Potassium 4.7 mmol/L (3.5-5.1)
[2023-03-10] MEDS ORDERED: FUROSEMIDE INJ 20 MG/2 ML VIAL IV SCH (20:15)
[2023-03-10] MEDS: FUROSEMIDE INJ 20 MG/2 ML VIAL IV SCH (21:18)
[2023-03-10] MEDS: ACETAMINOPHEN 325 MG TAB PO PRN (22:52)
[2023-03-10] MEDS ORDERED: cefTRIAXone SODIUM 1,000 MG in DEXTROSE 5% AD-VAN 50 ML IV SCH (23:00)
[2023-03-11] MEDS: ALPRAZolam 0.25 MG TABLET PO PRN ×3 (00:27→21:56)
[2023-03-11] MEDS: NITROGLYCERIN 2% OINTMENT 30GM TUBE EXT SCH ×4 (00:50→18:34)
[2023-03-11 01:15] LABS: BUN Creatinine Ratio 29.2 (10-20); Calcium 9.1 mg/dl (8.6-10.3); Creatinine Clr Calc Pharmacy 69.9 ml/min; Est GFR (African American) 109.7 ml/min; Est GFR (Non-African American) 94.6 ml/min; Potassium 4.5 mmol/L (3.5-5.1)
[2023-03-11] MEDS: LEVALBUTEROL 1.25 MG/3 ML NEB NEB SCH ×5 (01:22→21:41)
[2023-03-11] MEDS: IPRATROPIUM BROMIDE NEB SOLN 0.02% 2.5 ML VIAL INH SCH ×6 (01:22→21:41)
[2023-03-11] MEDS: FUROSEMIDE INJ 20 MG/2 ML VIAL IV SCH ×5 (05:29→21:16)
[2023-03-11] MEDS: HEPARIN SODIUM/DEXTROSE 25,000 UNITS/500 ML BAG IV SCH ×2 (05:29→14:21)
[2023-03-11] MEDS ORDERED: CALCIUM CARBONATE 500 MG CHEWABLE TAB PO STA (06:10)
[2023-03-11 06:12] LABS: Hematocrit (blood only) 36.6 % (37.0-47.0); Hemoglobin 13.5 g/dl (12.0-16.0); Mean Corpuscular Hemoglobin 29.9 pg (25.0-34.0); Mean Corpuscular Hgb Conc 36.9 g/dL (32.0-36.0); Mean Platelet Volume 11.1 fL (9.4-12.4); Platelet Count 235 K/uL (130-400); RDW Coefficient of Variation 11.3 % (11.5-14.5); RDW Standard Deviation 32.9 fL (36.4-46.3); Red Blood Count 4.52 M/uL (4.20-5.40); White Blood Count 14.16 K/ul (4.8-10.8)
[2023-03-11 06:32] LABS: BUN Creatinine Ratio 47.2 (10-20); Calcium 9.1 mg/dl (8.6-10.3); Chol HDL Ratio 2.3 (0-5); Creatinine Clr Calc Pharmacy 96.1 ml/min; Est GFR (African American) 120.6 ml/min; Magnesium 1.7 mg/dl (1.7-2.4); Phosphorus 2.2 mg/dl (2.5-4.9); Potassium 4.1 mmol/L (3.5-5.1)
[2023-03-11 06:38] LABS: Calcium 9.1 mg/dl (8.6-10.3)
[2023-03-11 06:44] LABS: BUN Creatinine Ratio 44.4 (10-20); Creatinine Clr Calc Pharmacy 96.1 ml/min; Est GFR (African American) 120.6 ml/min
[2023-03-11 06:55] LABS: Partial Thromboplastin Ratio 1.8
[2023-03-11 07:34] LABS: Partial Thromboplastin Time 49.4 Seconds (21.0-31.0)
[2023-03-11] MEDS: DOXYCYCLINE HYCLATE 100 MG CAP PO SCH ×2 (07:52→21:16)
[2023-03-11] MEDS: ASPIRIN 81 MG ECTAB PO SCH (07:52)
[2023-03-11] MEDS: methylPREDNISolone 40 MG in SYRINGE 0 ML IV SCH (07:52)
[2023-03-11] MEDS: METOPROLOL TARTRATE 25 MG TAB PO SCH (07:53)
[2023-03-11] MEDS ORDERED: PIPERACILLIN/TAZOBACTAM 4.5 GM (over 30 mins) IV ONE (08:00)
[2023-03-11] MEDS: POTASSIUM CHLORIDE 20 MEQ/15 ML UDC PO SCH ×3 (08:15→21:15)
[2023-03-11] MEDS: UREA (UREA-NA) 15 GM PACK PO SCH ×2 (08:15→21:15)
--- NOTE | 2023-03-11 08:39 | Electrocardiogram Report ---
Test Reason : Blood Pressure : / mmHG Vent. Rate : 114 BPM Atrial Rate : 114 BPM P-R Int : 116 ms QRS Dur : 092 ms QT Int : 380 ms P-R-T Axes : 083 085 -46 degrees QTc Int : 523 ms Sinus tachycardia Evolving Acute Anterior infarct Abnormal ECG When compared with ECG of 10-MAR-2023 10:29, ST more elevated in Inferior leads ST more elevated in Anterior leads Confirmed by Ervin Lance ([id number]) on 03/11/2023 8:39:26 AM Referred By: REFERRED SELF Confirmed By:Ervin Lance
--- NOTE | 2023-03-11 09:08 | Nephrology Progress Note ---
Date of Service March 11, 2023 Assessment & Plan (1) Hyponatremia: Plan: presenting sodium 119 03/09 1900 > goal is sNa no more than 128 tomorrow AM. euvolemic hypotonic hyponatremia in setting of severe structural lung disease, malnutrition/low solute diet. -sNa 121 at 0600 after NS; 121 at noon -f/u bmp for noon, 1800 today -maintain eukalemia -put hold parameters on standing K order 20 mEq tid -increased lasix to 20 mg IV q4h -continue 1.2 L FR -protein shakes and urea or potassium meds don't count toward fluid limit -encourage high protein diet -continue strict I/O for now (2) Hypertensive emergency: Plan: defer management to cardiology given concern for ACS; continue lasix Admission and Anticipated Discharge Date Admission Date: March 09, 2023 Subjective c/o shortness of breath this am; no n/v; low appetite but trying to eat some breakfast; no uncontrolled pain musculoskeletal abdominal or chest; endorses anxiety. Review of Systems Review of Systems: All systems reviewed & are unremarkable except as noted in Subjective Physical Exam Constitutional: well developed, + cachectic, + frail appearing and cooperative; no acute distress Eyes: EOM intact bilaterally ENMT: Ears: no external ear abnormality Nose: no external nose abnormality Mouth: + dry oral mucous membranes Neck: no nuchal rigidity Respiratory: normal respiratory effort Auscultation: + diminished lung sounds Cardiovascular: Rate/Rhythm: + tachycardic Extremities: no edema Gastrointestinal (Abdomen): Inspection/Auscultation: normal bowel sounds Percussion/Palpation: abdomen soft; abdomen nontender Musculoskeletal: Extremities: strength 5/5 throughout Skin: no rashes, warm and dry Neurologic: brady, fluent speech, no tremor but generalized weakness Psychiatric: Orientation: alert and oriented x 3 Affect: + flat affect Results & Data Vital Signs (Past 12 Hours) Vital Signs Temp Pulse Pulse Resp BP Pulse Ox O2 Del Method 03/11/23 07:54 36.5 C 121 H 20 165/82 H 98 Nasal Cannula 03/11/23 07:05 107 H 20 99 Nasal Cannula 03/11/23 05:28 108 H 158/88 H 03/11/23 03:19 36.5 C 105 H 18 138/81 100 Nasal Cannula 03/11/23 01:22 89 16 98 Nasal Cannula 03/10/23 22:01 88 06/29/23 00:43 108 H 18 142/85 H 93 Nasal Cannula 03/10/23 23:34 36.4 C L 98 H 18 132/80 98 Nasal Cannula 03/10/23 21:07 36.4 C L 102 H 16 130/80 98 Nasal Cannula O2 Flow Rate 03/11/23 07:54 2 03/11/23 07:05 2 03/11/23 05:28 03/11/23 03:19 2 03/11/23 01:22 2 03/10/23 22:01 03/11/23 00:43 2 03/10/23 23:34 2 03/10/23 21:07 2 Laboratory Results 03/11/23 05:42 03/11/23 05:42
--- NOTE | 2023-03-11 11:02 | Cardiology Progress Note ---
Date of Service March 11, 2023 Assessment & Plan (1) ST elevation on ECG: (2) Hypertensive emergency: (3) Apical ballooning syndrome: (4) Acute and chronic respiratory failure with hypercapnia: (5) COPD (chronic obstructive pulmonary disease): Plan Patient is a chronically and acutely ill 77-year-old female with severe COPD who presented with hypercapnic and hypoxic respiratory failure, hypertensive urgency. 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 Patient has been managed conservatively from ischemic standpoint due to marked metabolic and respiratory issues. Continues to deny any chest pain or discomfort other than persistent dyspnea. EKG abnormalities 16 hours in duration issues addressed as follows 1. 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 Patient is being managed conservative given multiple risk factors and overall frailty. Would continue IV heparin, increase beta-jorge luis for heart rate control, topical nitrates for further blood pressure control. MY inhibitor contraindicated in the setting of hyponatremia Patient currently not in heart failure but at risk for developing such. Current findings on EKG, echo and laboratory testing portray poor prognostic finding. Consider readdressing CODE STATUS 03/11/2023 Respiratory status improved marginally but more comfortable no chest pain but with EKGs demonstrating persistent ST elevation Recommendations: Increase beta-jorge luis to metoprolol succinate 50 mg twice daily. Continue topical nitrates with plans to add hydralazine depending on blood pressure response to change in medications We will continue IV heparin additional 24 hours Admission and Anticipated Discharge Date Admission Date: March 09, 2023 Subjective Patient seen and examined, chart, medications, telemetry reviewed. Patient in less distress today no chest pain breathing somewhat easier and oxygenating on 2 L nasal cannula Has had very brisk response to initial diuretic dose Still tachycardic but average heart rate 90s to 100, sinus tachycardia Physical Exam Constitutional: + ill appearing and + thin ENMT: external ear and nose normal, oropharynx normal Neck: trachea midline, no thyromegaly Respiratory: Auscultation: + diminished lung sounds (Slightly better aeration today) Cardiovascular: Rate/Rhythm: regular rate and + tachycardic Heart Sounds: normal S1 and normal S2 Vessels: no JVD Extremities: no edema Gastrointestinal (Abdomen): normal bowel sounds, soft, nontender, no hepatosplenomegaly Results & Data Vital Signs (Past 12 Hours) Vital Signs Temp Pulse Resp BP Pulse Ox O2 Del Method O2 Flow Rate 03/11/23 07:54 36.5 C 121 H 20 165/82 H 98 Nasal Cannula 2 03/11/23 07:05 107 H 20 99 Nasal Cannula 2 03/11/23 05:28 108 H 158/88 H 03/11/23 03:19 36.5 C 105 H 18 138/81 100 Nasal Cannula 2 03/11/23 01:22 89 16 98 Nasal Cannula 2 03/11/23 00:43 108 H 18 142/85 H 93 Nasal Cannula 2 03/10/23 23:34 36.4 C L 98 H 18 132/80 98 Nasal Cannula 2 Laboratory Results Laboratory Results - last 24 hr 03/10/23 03/10/23 03/10/23 12:17 12:17 18:33 WBC RBC Hgb Hct MCV MCH MCHC RDW Std Deviation RDW Coeff of [place] Plt Count MPV APTT 42.1 H* PTT Ratio 1.5 Sodium 121 L 121 L Potassium 4.6 4.7 Chloride 86 L 86 L Carbon Dioxide 27 28 Anion Gap 8 7 BUN 10 12 Creatinine 0.34 L 0.35 L Est Cr Clr Drug Dosing 98.7 95.9 Est GFR ( Amer) 122.8 121.7 Est GFR (Non-Af Amer) 106.0 105.0 BUN/Creatinine Ratio 29.4 H 34.3 H Glucose 132 H 115 H Calcium 9.3 9.1 Phosphorus Magnesium Triglycerides Cholesterol LDL Cholesterol, Calc VLDL Cholesterol, Calc HDL Cholesterol Cholesterol/HDL Ratio 03/11/23 03/11/23 03/11/23 00:29 05:42 05:42 WBC RBC Hgb Hct MCV MCH MCHC RDW Std Deviation RDW Coeff of [place] Plt Count MPV APTT 49.4 H* PTT Ratio 1.8 Sodium 122 L 122 L Potassium 4.5 4.1 Chloride 84 L 84 L Carbon Dioxide 30 29 Anion Gap 8 9 BUN 14 17 Creatinine 0.48 L 0.36 L Est Cr Clr Drug Dosing 69.9 96.1 Est GFR ( Amer) 109.7 120.6 Est GFR (Non-Af Amer) 94.6 104.0 BUN/Creatinine Ratio 29.2 H 47.2 H Glucose 118 H 106 H Calcium 9.1 9.1 Phosphorus 2.2 L Magnesium 1.7 Triglycerides 76 Cholesterol 148 LDL Cholesterol, Calc 69 VLDL Cholesterol, Calc 15 HDL Cholesterol 64 Cholesterol/HDL Ratio 2.3 03/11/23 03/11/23 05:42 05:42 WBC 14.16 H RBC 4.52 Hgb 13.5 Hct 36.6 L MCV 81.0 MCH 29.9 MCHC 36.9 H RDW Std Deviation 32.9 L RDW Coeff of [place] 11.3 L Plt Count 235 MPV 11.1 APTT PTT Ratio Sodium 121 L Potassium 4.0 Chloride 83 L Carbon Dioxide 29 Anion Gap 9 BUN 16 Creatinine 0.36 L Est Cr Clr Drug Dosing 96.1 Est GFR ( Amer) 120.6 Est GFR (Non-Af Amer) 104.0 BUN/Creatinine Ratio 44.4 H Glucose 104 H Calcium 9.1 Phosphorus Magnesium Triglycerides Cholesterol LDL Cholesterol, Calc VLDL Cholesterol, Calc HDL Cholesterol Cholesterol/HDL Ratio
--- NOTE | 2023-03-11 12:21 | Hospitalist Progress Note ---
Date of Service March 11, 2023 Assessment & Plan (1) ST elevation on ECG: (2) Apical ballooning syndrome: (3) Acute and chronic respiratory failure: (4) Mass of left lung: (5) Pulmonary nodule, left: (6) Pneumonia: (7) Tobacco abuse: (8) COPD (chronic obstructive pulmonary disease): (9) Hyponatremia: (10) E. coli UTI: Plan 77 year old female presenting to the ED with SOB with worsening productive cough for few days. S/p BIPAP for respiratory distress. CT chest 1. No pulmonary embolism. 2. Masslike consolidation within the anterior aspect of the left upper lobe. Differential of pneumonia versus malignancy. 3. Pulmonary nodule at the left lower lobe base measuring 1.9 x 1.6 cm. 4. Severe emphysema. 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 Basilar segments are hyperdynamic. RVSP at 50-60 mm Hg. Plan: Acute on chronic respiratory failure with hypoxia- Resp biofire negative. CT with severe emphysema and KAYKAY mass. S/p BIPAP and now on NC 2L which is her home requirement. Seen by pulmonology. Recommendations noted. Continue supplemental oxygen with BIPAP prn. 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 - Seen by cardio- considering her multiple risk factors and frailty, recommended conservative management with heparin drip, BB, topical nitrates, aspirin and BP control. Poor prognosis per cardio. -Cardiac, Toprol increased to 50 twice daily. Continue topical nitrates with plans to add hydralazine depending on blood pressure response to medication changes. -Continue IV heparin for 24 more hours per cardiology. Hyponatremia- Na 118->119->121->123. Nephro managing-on fluid restrictions, urea and IV Lasix. Euvolemic hypotonic hyponatremia in setting of severe structural lung disease, malnutrition/low solute diet. E coli UTI- sensitive to Ancef. Deescalate ABx to ancef D2/5 Left upper lobe lung mass-suspected malignancy vs PNA. Also has LLL lung nodule known before. CT personally reviewed. Seen by pulmonology. Recommendations noted. Patient declined work-up in the past and continues to decline. COPD- does not seem to be in acute exacerbation. Prior heavy tobacco abuse, quit in December. Zosyn and solumedrol discontinued and started on low dose prednisone, doxy per pulmonology. Continue aerosols Hypertensive urgency- improved. continue current meds. Severe protein-calorie malnutrition-- BMI 15.6. Dietitian eval. Hypophosphatemia- repleted, recheck in am GOC discussion- Pulm recommended palliative evaluation. Given her advanced lung disease, she might be a hospice candidate per pulm. DVT ppx- heparin drip Dispo- Continue current level of care. Palliative consulted to discuss [facility]. DNR/DNI Admission and Anticipated Discharge Date Admission Date: March 09, 2023 Subjective Patient was seen and examined at bedside. She feels slightly better from yesterday. She denies any chest pain, shortness of breath, fever, chills, nausea or vomiting. No new issues. Review of Systems Review of Systems: All systems reviewed & are unremarkable except as noted in Subjective Physical Exam Physical Exam: General: Thin frail elderly female, lying comfortably in bed, not in distress, on NC HEENT: EZIO, MMM Chest: Decreased breath sounds bilaterally CVS: Tachycardic, normal heart sounds, no murmur Abdomen: Soft, non tender, not distended, normal bowel sounds Neuro: Awake, alert, oriented, conversing well, non focal Extremities: No cyanosis, clubbing or edema Results & Data Results & Data Vital Signs (Past 12 Hours) Vital Signs Temp Pulse Pulse Resp BP Pulse Ox O2 Del Method 03/11/23 07:00 114 H 03/11/23 07:00 Nasal Cannula 03/11/23 07:54 36.5 C 121 H 20 165/82 H 98 Nasal Cannula 03/11/23 07:05 107 H 20 99 Nasal Cannula 03/11/23 05:28 108 H 158/88 H 03/11/23 03:19 36.5 C 105 H 18 138/81 100 Nasal Cannula 03/11/23 01:22 89 16 98 Nasal Cannula 03/11/23 00:43 108 H 18 142/85 H 93 Nasal Cannula O2 Flow Rate 03/11/23 07:00 03/11/23 07:00 2 03/11/23 07:54 2 03/11/23 07:05 2 03/11/23 05:28 03/11/23 03:19 2 03/11/23 01:22 2 03/11/23 00:43 2 Laboratory Results Short CBC 03/11/23 Range/Units 05:42 WBC 14.16 H (4.8-10.8) K/ul Hgb 13.5 (12.0-16.0) g/dl Hct 36.6 L (37.0-47.0) % Plt Count 235 (130-400) K/uL BMP 03/10/23 03/11/23 03/11/23 18:33 00:29 05:42 Sodium 121 L 122 L 122 L Potassium 4.7 4.5 4.1 Chloride 86 L 84 L 84 L Carbon Dioxide 28 30 29 BUN 12 14 17 Creatinine 0.35 L 0.48 L 0.36 L Glucose 115 H 118 H 106 H Calcium 9.1 9.1 9.1 03/11/23 03/11/23 05:42 11:58 Sodium 121 L 123 L Potassium 4.0 4.3 Chloride 83 L 81 L Carbon Dioxide 29 34 H BUN 16 43 H D Creatinine 0.36 L 0.46 L Glucose 104 H 129 H Calcium 9.1 9.7 Medications Administered Current Inpatient Medications Acetaminophen (Acetaminophen 325 Mg Tab) 650 mg PO Q4H PRN PRN Reason: Pain or Fever Stop: 04/08/23 23:49 Last Admin: 03/10/23 22:52 Dose: 650 mg Alprazolam (Alprazolam 0.25 Mg Tablet) 0.25 mg PO BID PRN PRN Reason: agitation Stop: 04/09/23 20:59 Last Admin: 03/11/23 07:52 Dose: 0.25 mg Aspirin (Aspirin 81 Mg Ectab) 81 mg PO DAILY QAMAR Stop: 04/09/23 08:59 Last Admin: 03/11/23 07:52 Dose: 81 mg Doxycycline Hyclate (Doxycycline Hyclate 100 Mg Cap) 100 mg PO BID QAMAR Stop: 03/17/23 08:59 Last Admin: 03/11/23 07:52 Dose: 100 mg Furosemide (Furosemide Inj 20 Mg/2 Ml Vial) 20 mg IV Q4H QAMAR Stop: 04/10/23 07:29 Last Admin: 03/11/23 14:15 Dose: 20 mg Heparin Sodium/Dextrose (Heparin Sodium/Dextrose) 25,000 units in 500 mls @ 16 mls/hr IV .Q24H [facility]; Protocol Stop: 04/09/23 04:59 Last Admin: 03/11/23 14:21 Dose: 800 units/hr, 16 mls/hr Cefazolin Sodium (Ancef 2000mg) 2,000 mg in 15 mls @ 3.75 mls/min IV Q8H [facility] Stop: 03/16/23 15:14 Ipratropium Hamilton (Ipratropium [place] Neb Soln 0.02% 2.5 Ml Vial) 0.5 mg INH Q6R [facility] Stop: 04/09/23 00:59 Last Admin: 03/11/23 14:11 Dose: 0.5 mg Levalbuterol HCl (Levalbuterol 1.25 Mg/3 Ml Neb) 1.25 mg NEB Q6R [facility] Stop: 04/09/23 00:59 Last Admin: 03/11/23 14:11 Dose: 1.25 mg Metoprolol Succinate (Metoprolol Succ 50mg Ext Rel Tab) 50 mg PO BID [facility] Stop: 04/10/23 11:14 Last Admin: 03/11/23 12:43 Dose: 50 mg Metoprolol Tartrate (Metoprolol Tartrate 1 Mg/Ml Vial) 5 mg IV Q6 PRN PRN Reason: tachycardia >120 Stop: 04/09/23 11:59 Last Admin: 03/10/23 08:05 Dose: 5 mg Nitroglycerin (Nitroglycerin 2% Ointment 30gm Tube) 1 inch EXT Q6H [facility] Stop: 04/09/23 11:59 Last Admin: 03/11/23 12:34 Dose: 1 inch Ondansetron HCl (Ondansetron Inj 2 Mg/Ml 2 Ml Vial) 4 mg IV Q6H PRN PRN Reason: Nausea And Vomiting Stop: 04/09/23 16:12 Last Admin: 03/10/23 16:18 Dose: 4 mg Potassium Chloride (Potassium Chloride 20 Meq/15 Ml Udc) 20 meq PO TID [facility] Stop: 04/10/23 08:59 Last Admin: 03/11/23 14:15 Dose: 20 meq Prednisone (Prednisone 20 Mg Tab) 20 mg PO DAILY [facility] Stop: 07/03/23 12:59 Last Admin: 03/11/23 14:15 Dose: 20 mg Urea (Urea (Urea-Na) 15 Gm Pack) 15 gm PO BID QAMAR Stop: 04/10/23 08:59 Last Admin: 03/11/23 08:15 Dose: 15 gm (6) Pneumonia Laterality: left Lung location: upper lobe of lung Pneumonia type: due to unspecified organism Qualified Code(s): J18.9 - Pneumonia, unspecified organism
[2023-03-11] MEDS: METOPROLOL SUCC 50MG EXT REL TAB PO SCH ×2 (12:43→21:16)
--- NOTE | 2023-03-11 12:51 | Pulmonology Progress Note ---
Date of Service March 11, 2023 Assessment & Plan (1) Acute and chronic respiratory failure with hypercapnia: (2) COPD (chronic obstructive pulmonary disease): (3) Pneumonia: Laterality: left Lung location: upper lobe of lung Pneumonia type: due to unspecified organism Qualified Code(s): J18.9 - Pneumonia, unspecified organism (4) Tobacco abuse: (5) Pulmonary nodule, left: Plan Impression: 77-year-old female with advanced COPD admitted with failure to thrive. She has a history of several airspace opacities which reportedly have been noted in the outpatient setting but the patient has elected to not pursue any intervention. She was advised that these could represent malignancy and may be the etiology of her complaints however she is not interested in pursuing biopsy or therapy. Recommendations: 1. Acute on chronic hypoxemic and hypercarbic respiratory failure: Patient does not appear to be suffering from an acute exacerbation. She has advanced stage end-stage emphysema/COPD. Would continue inhalers in the form of Anoro. I do not see evidence of significant airspace opacity so will discontinue Zosyn. She can continue doxycycline for therapy for an acute exacerbation of COPD. We will discontinue Solu-Medrol and transition her to prednisone 10 mg daily for 5 days. Continue Anoro. 2. Pulmonary nodules: Patient is aware of the presence of these nodules and has declined work-up in the past. She was advised that there is a high likelihood that these could represent a malignant process. Again she does not desire further evaluation. We discussed palliative care consultation and symptom management which given the patient's declining clinical status appears to be appropriate. Unfortunately she lives alone so setting up hospice might be difficult. She would qualify for hospice just based on her advanced lung disease. Would recommend palliative care consultation as the patient is elected to not pursue work-up or aggressive treatment. Symptom management may be appropriate. The patient can follow-up with her outpatient pulmonary providers through [email or web address]. There appears to be little else to do for this patient on the inpatient setting from a pulmonary perspective. Admission and Anticipated Discharge Date Admission Date: March 09, 2023 Subjective Patient seen and examined. EMR reviewed. Agree with assessment plan as noted by CARLOS previously. The patient states that she feels very weak. She is not really able to eat. She cannot get up and move around. She reportedly lives independently. She she reports that she is aware of the presence of these pulmonary masses but has elected to pursue no follow-up. She has been established with Danielito lopez in the past. Review of Systems Review of Systems: All systems reviewed & are unremarkable except as noted in Subjective Physical Exam Constitutional: + ill appearing and + cachectic; not in distress Neck: trachea midline, no thyromegaly Respiratory: no respiratory distress, no labored breathing, no cough and not tachypneic Auscultation: + diminished lung sounds; no wheezes Cardiovascular: RRR, no murmur, no edema Gastrointestinal (Abdomen): normal bowel sounds, soft, nontender, no hepatosp lenomegaly Musculoskeletal: Extremities: extremities normal to inspection Skin: no rashes, warm and dry Neurologic: Nonfocal exam Lymphatic: no cervical lymphadenopathy Results & Data Results & Data Vital Signs (Past 12 Hours) Vital Signs Temp Pulse Pulse Pulse Resp BP Pulse Ox 03/11/23 12:35 111 H 18 130/72 95 03/11/23 07:00 114 H 03/11/23 07:00 03/11/23 07:54 36.5 C 121 H 20 165/82 H 98 03/11/23 07:05 107 H 20 99 03/11/23 05:28 108 H 158/88 H 03/11/23 03:19 36.5 C 105 H 18 138/81 100 03/11/23 01:22 89 16 98 O2 Del Method O2 Flow Rate 03/11/23 12:35 Nasal Cannula 2 03/11/23 07:00 03/11/23 07:00 Nasal Cannula 2 03/11/23 07:54 Nasal Cannula 2 03/11/23 07:05 Nasal Cannula 2 03/11/23 05:28 03/11/23 03:19 Nasal Cannula 2 03/11/23 01:22 Nasal Cannula 2 Laboratory Results 03/11/23 05:42 Diagnostic Findings No new imaging PG Care Time/CCT Total # of Minutes Spent Total Time Spent with Patient: Total time spent is greater than 50% in coordination of care (as documented) at patient's floor/unit and/or counseling patient: Coding Level of Care Code 69128 SUB INP/OBS CARE 2/35MIN Diagnoses Acute and chronic respiratory failure with hypercapnia J96.22 COPD (chronic obstructive pulmonary disease) J44.9 Pneumonia J18.9 Laterality: left Lung location: upper lobe of lung Pneumonia type: due to unspecified organism Tobacco abuse Z72.0 Pulmonary nodule, left R91.1
[2023-03-11 12:54] LABS: BUN Creatinine Ratio 93.5 (10-20); Calcium 9.7 mg/dl (8.6-10.3); Creatinine Clr Calc Pharmacy 75.2 ml/min; Est GFR (African American) 111.2 ml/min; Potassium 4.3 mmol/L (3.5-5.1)
[2023-03-11] MEDS ORDERED: PIPERACILLIN/TAZOBACTAM 4.5 GM in DEXTROSE 5% 100 ML IV SCH (13:00)
[2023-03-11] MEDS: predniSONE 20 MG TAB PO SCH (14:15)
--- NOTE | 2023-03-11 16:06 | Palliative Care Consultation ---
Date of Consultation March 11, 2023 Assessment & Plan (1) Dyspnea: with severe COPD, possible pneumonia and CAD with cardiomyopathy This is severely limiting her ability to perform even basic ADLs at home. We discussed possibility that she may need SNF on discharge. She tells me that she isn't thrilled about the idea but recognizes that is probably what is necessary for her care. (2) Weakness generalized: As above (3) Palliative care encounter: I talked with Mrs. Zepeda about how she is coping with her illness. She tells me that she pretty much just sleeps and watches TV at home. She does not feel that she has good quality of life. She defines quality of life as being able to enjoy time with her family and be at least partially independent at home. She tells me that she has never really thought about goals for her care and tends to stay focused on the moment. She does have an advance directive and confirms that she would not want resuscitation or intubation. She says that she wouldn't want to be kept alive if she didn't have any quality of life. She would prefer to peacefully if her heart or breathing stopped. We discussed her previous decline of workup for pulmonary nodules. She feels that since they appear to be stable since last scan, she would not want to go through diagnostic procedures. She does want to continue current treatment and would want treatment if there is a chance that she could have some chance of improvement. We did discuss concern that her health is very fragile and that this may be as good as things get for her. We talked about who she would want to make decisions for her if she were unable to do so. She told me that she would want her niece, Denise Davis, to be her surrogate decision maker. She is concerned that it would be hard for her daughter, Adriana, to make difficult decisions on her behalf. She asked to have POA documentation. Notified Tanja Bauer if patients request. She is agreeable to f/u discussion tomorrow and would like me to speak with Denise at that time also. Discussed with RN. Will follow. History of Present Illness Reason for Consultation: Goals of care Requesting Physician: Dr. Oneal Attending Physician: Abdi Oneal MD History of Present Illness 77 yo lady with history of COPD and chronic hypoxic respiratory failure. She requires O2 at home. She has masslike consolidation in left upper lobe and a 1.9 x 1.6 cm LLL pulmonary nodule with smaller nodules scattered throughout her lungs. This nodule is apparently unchanged in size from prior CT in 2020. She presented with worsening cough and shortness of breath. She was noted to have ST elevation in inferior and anterior leads with elevated troponin Echo shows decreased EF at 45-50% with apical ballooning cardiomyopathy. She is being treated for evolving myocardial infarction. She also presented with sodium level of 118 which is slowly improving to current level of 123. Mrs. Zepeda tells me that she lives alone in [place]. She has a daughter who lives in [place] as well as supportive nieces and nephews. She has been having difficulty managing at home alone. She reports dyspnea with walking to the bathroom or kitchen of her home, at her baseline. She denies pain or dyspnea at rest at this time. Allergies Allergy/AdvReac Type Severity Reaction Status Date / Time aspirin AdvReac Intermediate NOSE BLEED Verified 03/09/23 19:42 WITH FULL STRENGTH ASA, LOW DOSE OK. Sulfa (Sulfonamide AdvReac Intermediate NOSE Verified 03/09/23 19:39 Antibiotics) BLEEDS PER [facility] Home Medications Medication Instructions Recorded Confirmed Type albuterol sulfate 90 mcg/actuation 2 puff inhalation Q4H PRN 08/21/21 03/09/23 History aerosol inhaler Shortness Of Breath Or Wheezing alprazolam 0.25 mg tablet (Xanax) 0.25 mg PO DAILY PRN Anxiety 08/21/21 03/09/23 History aspirin 81 mg tablet,delayed 81 mg PO DAILY 08/21/21 03/09/23 History release acetaminophen 500 mg tablet 500 mg PO DIRECTED PRN Pain 03/09/23 03/09/23 History (Non-Aspirin Pain Relief) Patient History Medical History Anxiety Cervical cancer Chronic respiratory failure COPD (chronic obstructive pulmonary disease) Hernia Pulmonary nodule, left Tobacco abuse Surgical History History of breast lump/mass excision History of surgical removal of pilonidal cyst S/P bilateral breast biopsy S/P cataract extraction S/P hysterectomy Status post bilateral foot surgery Social History Smoking Status: Former smoker Tobacco Type: Cigarettes Age Started Using Tobacco: 13; packs per day: 1.5; Second Hand Exposure: No; Do You Dip or Chew Tobacco: No; Tobacco Cessation Education Requested by Patient: No Hx Alcohol Use: No Hx Substance Use: No Preferred Language: Samoan Communication Ability: Effective Visual Impairment: Limited Hearing Ability: Hard of Hearing Beliefs That Will Affect Care: None marital status: Current Living Situation: Personal Care Facility Current Living Situation Comment: [facility]ention current occupational status: retired How many Children do You have: 1 How many Children do You have Comment: DAUGHTER UNABLE TO ASSIST MUCH WITH CARE, NIECES ASSIST WITH CARE Other Information That Helps Us Care for You: No Feels Safe at Home: Yes Safety Concerns: Feels Safe At This Time during the past year weight has: decreased > 10 lbs Assistive Devices: Cane, Oxygen - Continuous, Walker and Wheelchair Review of Systems Review of Systems: ESAS Pain 0/3 Dyspnea 2/3 Nausea 0/3 Drowsiness 1/3 Physical Exam Constitutional: + frail appearing ENMT: temporal wasting Respiratory: normal respiratory effort; no labored breathing Cardiovascular: regular, tachycardic Gastrointestinal (Abdomen): nontender Musculoskeletal: Extremities: + muscle atrophy Skin: warm and dry Neurologic: Speech / Cognition: normal cognition Results & Data Vital Signs (Past 12 Hours) Vital Signs Temp Pulse Pulse Pulse Resp BP Pulse Ox 03/11/23 14:12 107 H 20 96 03/11/23 12:35 111 H 18 130/72 95 03/11/23 07:00 114 H 03/11/23 07:00 03/11/23 07:54 97.7 F 121 H 20 165/82 H 98 03/11/23 07:05 107 H 20 99 03/11/23 05:28 108 H 158/88 H O2 Del Method O2 Flow Rate 03/11/23 14:12 Nasal Cannula 2 03/11/23 12:35 Nasal Cannula 2 03/11/23 07:00 03/11/23 07:00 Nasal Cannula 2 03/11/23 07:54 Nasal Cannula 2 03/11/23 07:05 Nasal Cannula 2 03/11/23 05:28 PG Care Time/CCT Total # of Minutes Spent Total Time Spent: 76 Total Time Spent with Patient: Total time spent is greater than 50% in coordination of care (as documented) at patient's floor/unit and/or counseling patient:[id number] goals of care, surrogate decision maker, patient education and support, coordination of care Coding Level of Care Code 52093 INT INP/OBS CARE 3/75MIN Diagnoses Dyspnea R06.00 Weakness generalized R53.1 Palliative care encounter Z51.5
[2023-03-11] MEDS: ceFAZolin 2000MG 2,000 MG/15 ML SYR IV SCH (16:40)
[2023-03-11 19:04] LABS: BUN Creatinine Ratio 57.6 (10-20); Calcium 9.5 mg/dl (8.6-10.3); Creatinine Clr Calc Pharmacy 58.6 ml/min; Est GFR (African American) 102.5 ml/min; Est GFR (Non-African American) 88.4 ml/min; Potassium 4.3 mmol/L (3.5-5.1)
[2023-03-11] MEDS: POT PHOSPHATE MONOBASIC W/ SOD TAB PO SCH (21:15)
[2023-03-12] MEDS: IPRATROPIUM BROMIDE NEB SOLN 0.02% 2.5 ML VIAL INH SCH ×4 (01:52→19:44)
[2023-03-12] MEDS: LEVALBUTEROL 1.25 MG/3 ML NEB NEB SCH ×4 (01:52→19:44)
[2023-03-12] MEDS: FUROSEMIDE INJ 20 MG/2 ML VIAL IV SCH ×6 (01:55→23:11)
[2023-03-12] MEDS: ceFAZolin 2000MG 2,000 MG/15 ML SYR IV SCH ×4 (01:55→23:11)
[2023-03-12] MEDS: NITROGLYCERIN 2% OINTMENT 30GM TUBE EXT SCH ×2 (01:56→04:52)
[2023-03-12 06:26] LABS: Hematocrit (blood only) 39.2 % (37.0-47.0); Hemoglobin 14.4 g/dl (12.0-16.0); Mean Corpuscular Hgb Conc 36.7 g/dL (32.0-36.0); Mean Corpuscular Volume 81.7 fL (80.0-100.0); Mean Platelet Volume 11.2 fL (9.4-12.4); Platelet Count 269 K/uL (130-400); RDW Coefficient of Variation 11.3 % (11.5-14.5); RDW Standard Deviation 33.2 fL (36.4-46.3); White Blood Count 13.07 K/ul (4.8-10.8)
[2023-03-12 06:47] LABS: BUN Creatinine Ratio 101.6 (10-20); Calcium 9.8 mg/dl (8.6-10.3); Creatinine Clr Calc Pharmacy 55.1 ml/min; Est GFR (African American) 101.3 ml/min; Est GFR (Non-African American) 87.4 ml/min; Magnesium 1.9 mg/dl (1.7-2.4); Phosphorus 3.7 mg/dl (2.5-4.9); Potassium 4.1 mmol/L (3.5-5.1)
[2023-03-12 07:24] LABS: Partial Thromboplastin Ratio 1.7
[2023-03-12 07:41] LABS: Partial Thromboplastin Time 48.6 Seconds (21.0-31.0)
[2023-03-12] MEDS: ALPRAZolam 0.25 MG TABLET PO PRN ×2 (07:49→19:24)
[2023-03-12] MEDS ORDERED: methylPREDNISolone 20 MG in SYRINGE 0 ML IV SCH (09:00)
[2023-03-12] MEDS: ASPIRIN 81 MG ECTAB PO SCH (09:12)
[2023-03-12] MEDS: METOPROLOL SUCC 50MG EXT REL TAB PO SCH ×3 (09:13→20:16)
[2023-03-12] MEDS: DOXYCYCLINE HYCLATE 100 MG CAP PO SCH ×2 (09:13→20:23)
[2023-03-12] MEDS: predniSONE 20 MG TAB PO SCH (09:14)
[2023-03-12] MEDS: POTASSIUM CHLORIDE 20 MEQ/15 ML UDC PO SCH ×2 (09:14→13:11)
[2023-03-12] MEDS: POT PHOSPHATE MONOBASIC W/ SOD TAB PO SCH (09:14)
--- NOTE | 2023-03-12 11:04 | Cardiology Progress Note ---
Date of Service March 12, 2023 Assessment & Plan (1) ST elevation on ECG: (2) Hypertensive emergency: (3) Apical ballooning syndrome: (4) Acute and chronic respiratory failure with hypercapnia: (5) COPD (chronic obstructive pulmonary disease): Plan Patient is a chronically and acutely ill 77-year-old female with severe COPD who presented with hypercapnic and hypoxic respiratory failure, hypertensive urgency. 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 Patient has been managed conservatively from ischemic standpoint due to marked metabolic and respiratory issues. Continues to deny any chest pain or discomfort other than persistent dyspnea. EKG abnormalities 16 hours in duration issues addressed as follows 1. 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 Patient is being managed conservative given multiple risk factors and overall frailty. Would continue IV heparin, increase beta-jorge luis for heart rate control, topical nitrates for further blood pressure control. MY inhibitor contraindicated in the setting of hyponatremia Patient currently not in heart failure but at risk for developing such. Current findings on EKG, echo and laboratory testing portray poor prognostic finding. Consider readdressing CODE STATUS 03/11/2023 Respiratory status improved marginally but more comfortable no chest pain but with EKGs demonstrating persistent ST elevation Recommendations: Increase beta-jorge luis to metoprolol succinate 50 mg twice daily. Continue topical nitrates with plans to add hydralazine depending on blood pressure response to change in medications We will continue IV heparin additional 24 hours 03/12/2023 Clinically stable but marginally compensated. Plan increase metoprolol succinate to 50 mg 3 times daily Discontinue IV heparin Add hydralazine 10 mg twice daily, change topical nitrates to oral isosorbide dinitrate 20 3 times daily Overall prognosis remains limited Admission and Anticipated Discharge Date Admission Date: March 09, 2023 Physical Exam Constitutional: + ill appearing and + thin Eyes: PERRL, conjunctivae normal, anicteric sclerae ENMT: external ear and nose normal, oropharynx normal Neck: trachea midline, no thyromegaly Respiratory: Auscultation: + diminished lung sounds (Slightly better aeration today) Cardiovascular: Rate/Rhythm: regular rate and + tachycardic Heart Sounds: normal S1 and normal S2 Vessels: no JVD Extremities: no edema Gastrointestinal (Abdomen): normal bowel sounds, soft, nontender, no hepatosplenomegaly Results & Data Vital Signs (Past 12 Hours) Vital Signs Temp Pulse Pulse Pulse Resp BP Pulse Ox 03/12/23 08:00 03/12/23 09:34 109 H 03/12/23 07:40 113 H 18 124/71 100 03/12/23 07:26 115 H 25 H 94 03/12/23 03:07 36.3 C L 109 H 18 101/79 97 03/12/23 01:53 97 H 20 98 03/11/23 23:01 107 H O2 Del Method O2 Flow Rate 03/12/23 08:00 Nasal Cannula 2 03/12/23 09:34 03/12/23 07:40 Nasal Cannula 2 03/12/23 07:26 Oxymask 1.5 03/12/23 03:07 Nasal Cannula 2 03/12/23 01:53 Nasal Cannula 2 03/11/23 23:01 Laboratory Results Laboratory Results - last 24 hr 03/11/23 03/11/23 03/12/23 11:58 18:25 05:52 WBC 13.07 H RBC 4.80 Hgb 14.4 Hct 39.2 MCV 81.7 MCH 30.0 MCHC 36.7 H RDW Std Deviation 33.2 L RDW Coeff of [place] 11.3 L Plt Count 269 MPV 11.2 APTT PTT Ratio Sodium 123 L 125 L Potassium 4.3 4.3 Chloride 81 L 80 L Carbon Dioxide 34 H 36 H Anion Gap 8 9 BUN 43 H D 34 H Creatinine 0.46 L 0.59 L Est Cr Clr Drug Dosing 75.2 58.6 Est GFR ( Amer) 111.2 102.5 Est GFR (Non-Af Amer) 96.0 88.4 BUN/Creatinine Ratio 93.5 H 57.6 H Glucose 129 H 142 H Calcium 9.7 9.5 Phosphorus Magnesium 03/12/23 03/12/23 05:52 05:52 WBC RBC Hgb Hct MCV MCH MCHC RDW Std Deviation RDW Coeff of [place] Plt Count MPV APTT 48.6 H* PTT Ratio 1.7 Sodium 129 L Potassium 4.1 Chloride 81 L Carbon Dioxide 41 H* Anion Gap 7 BUN 62 H D Creatinine 0.61 Est Cr Clr Drug Dosing 55.1 Est GFR ( Amer) 101.3 Est GFR (Non-Af Amer) 87.4 BUN/Creatinine Ratio 101.6 H Glucose 101 H Calcium 9.8 Phosphorus 3.7 D Magnesium 1.9
[2023-03-12] MEDS: ONDANSETRON INJ 2 MG/ML 2 ML VIAL IV PRN (11:34)
--- NOTE | 2023-03-12 12:03 | Palliative Care Progress Note ---
Date of Service March 12, 2023 Assessment & Plan (1) Nausea: Plan: Mild. Occurred after medication administration Poor po intake Zofran given (2) Dyspnea: Plan: With minimal exertion in setting of CAD, cardiomyopathy and COPD Comfortable at rest (3) Weakness generalized: Plan: Limiting her ability to do basic ADLs She and her niece, Denise, are working with case management on SNF placement after discharge (4) Palliative care encounter: Plan: Met with Sara and her niece, Denise Davis, at bedside. Sara confirms statement she made yesterday that she would want Denise to make decisions on her behalf if she were unable to do so. They were able to meet with Tanja Bauer and complete POA documentation. We discussed Denise's understanding of Sara's wishes. She indicated that Sara would not want surgery, procedures, resuscitation or aggressive intervention to prolong her life. Sara confirms this. Sara does not feel that she has good quality of life and is not able to do the things that she enjoys. She does feel that if she is able to go to SNF for trial of rehab, she would want to consider option to return to hospital if needed. She understands that her prognosis is poor and this is likely as good as things will get for her. We discussed option of focus on comfort and symptom management. She wants to continue current treatments on a day to day basis to see if she could be stable enough for discharge to SNF. Denise supports this. Discussed with RN and case management. Admission and Anticipated Discharge Date Admission Date: March 09, 2023 Subjective Feels tired this morning. Has some mild nausea after am medications. Denies pain or dyspnea Review of Systems Review of Systems: ESAS Pain 0/3 Dyspnea 0/3 at rest Nausea 1/3 Drowsiness 1/3 Physical Exam Constitutional: + ill appearing ENMT: temporal wasting Respiratory: normal respiratory effort; no labored breathing Cardiovascular: Rate/Rhythm: + tachycardic Musculoskeletal: Extremities: + muscle atrophy Neurologic: Speech / Cognition: normal cognition Results & Data Vital Signs (Past 12 Hours) Vital Signs Temp Pulse Pulse Pulse Resp BP Pulse Ox 03/12/23 11:36 97.5 F L 90 18 128/68 95 03/12/23 08:00 03/12/23 09:34 109 H 03/12/23 07:40 113 H 18 124/71 100 03/12/23 07:26 115 H 25 H 94 03/12/23 03:07 97.3 F L 109 H 18 101/79 97 03/12/23 01:53 97 H 20 98 O2 Del Method O2 Flow Rate 03/12/23 11:36 Nasal Cannula 03/12/23 08:00 Nasal Cannula 2 03/12/23 09:34 03/12/23 07:40 Nasal Cannula 2 03/12/23 07:26 Oxymask 1.5 03/12/23 03:07 Nasal Cannula 2 03/12/23 01:53 Nasal Cannula 2 PG Care Time/CCT Total # of Minutes Spent Total Time Spent: 45 Total Time Spent with Patient: Total time spent is greater than 50% in coordination of care (as documented) at patient's floor/unit and/or counseling patient: [id number] goals of care, surrogate decision maker, patient and family education and support, coordination of care Coding Level of Care Code 25972 SUB INP/OBS CARE 2/35MIN Diagnoses Nausea R11.0 Dyspnea R06.00 Weakness generalized R53.1 Palliative care encounter Z51.5
--- NOTE | 2023-03-12 12:06 | Hospitalist Progress Note ---
Date of Service March 12, 2023 Assessment & Plan (1) ST elevation on ECG: (2) Apical ballooning syndrome: (3) Acute and chronic respiratory failure: (4) Mass of left lung: (5) Pulmonary nodule, left: (6) Pneumonia: (7) Tobacco abuse: (8) COPD (chronic obstructive pulmonary disease): (9) Hyponatremia: (10) E. coli UTI: Plan 77 year old female presenting to the ED with SOB with worsening productive cough for few days. S/p BIPAP for respiratory distress. CT chest 1. No pulmonary embolism. 2. Masslike consolidation within the anterior aspect of the left upper lobe. Differential of pneumonia versus malignancy. 3. Pulmonary nodule at the left lower lobe base measuring 1.9 x 1.6 cm. 4. Severe emphysema. 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 Basilar segments are hyperdynamic. RVSP at 50-60 mm Hg. Plan: Acute on chronic respiratory failure with hypoxia- Resp biofire negative. CT with severe emphysema and KAYKAY mass. S/p BIPAP and now on NC 2L which is her home requirement. Seen by pulmonology. Recommendations noted. Continue supplemental oxygen with BIPAP prn. 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 - Seen by cardio- considering her multiple risk factors and frailty, recommended conservative management with heparin drip, BB, topical nitrates, aspirin and BP control. Poor prognosis per cardio. -Status post heparin drip for 48 hours, discontinued today 03/12 per cardiology -Toprol for increased to 50 mg 3 times daily per cardiology today. Hydralazine added, topical nitrates changed to isosorbide dinitrate 20 mg 3 times daily. Further management per cardiology but overall prognosis remains limited Hyponatremia- Na 118->119->121->123->125->129. Nephro managing-on fluid restrictions, urea and IV Lasix, but currently on hold given rapid improvement. Repeat BMP pending. Euvolemic hypotonic hyponatremia in setting of severe structural lung disease, malnutrition/low solute diet. E coli UTI- sensitive to Ancef. Deescalate ABx to ancef D3/5 Left upper lobe lung mass-suspected malignancy vs PNA. Also has LLL lung nodule known before. CT personally reviewed. Seen by pulmonology. Recommendations noted. Patient declines further work-up as she did in the past. COPD- does not seem to be in acute exacerbation. Prior heavy tobacco abuse, quit in December. Zosyn and solumedrol discontinued and started on low dose prednisone, doxy per pulmonology. Continue aerosols Hypertensive urgency- improved. continue current meds. Meds adjusted as above Severe protein-calorie malnutrition-- BMI 15.6. Dietitian eval. Hypophosphatemia-resolved with repletion GOC discussion-palliative care following DVT ppx-SQ heparin Dispo- Continue current level of care. DNR/DNI Admission and Anticipated Discharge Date Admission Date: March 09, 2023 Subjective Patient seen and examined at bedside. She states she had a rough night with difficulty breathing but improved with nebulizer treatment, she did not have to use BiPAP. She is tired this morning and trying to get some sleep. She states she is not used to being in the hospital or taking so many pills. Denies any chest pain. No fever, chills, nausea or vomiting Review of Systems Review of Systems: All systems reviewed & are unremarkable except as noted in Subjective Physical Exam Physical Exam: General: Thin frail elderly female, lying comfortably in bed, not in distress, on NC HEENT: EZIO, MMM Chest: Decreased breath sounds bilaterally CVS: Tachycardic, normal heart sounds, no murmur Abdomen: Soft, non tender, not distended, normal bowel sounds Neuro: Awake, alert, oriented, conversing well, non focal Extremities: No cyanosis, clubbing or edema Delgado with mohini urine Results & Data Results & Data Vital Signs (Past 12 Hours) Vital Signs Temp Pulse Pulse Pulse Resp BP Pulse Ox 03/12/23 11:36 36.4 C L 90 18 128/68 95 03/12/23 08:00 03/12/23 09:34 109 H 03/12/23 07:40 113 H 18 124/71 100 03/12/23 07:26 115 H 25 H 94 03/12/23 03:07 36.3 C L 109 H 18 101/79 97 03/12/23 01:53 97 H 20 98 O2 Del Method O2 Flow Rate 03/12/23 11:36 Nasal Cannula 03/12/23 08:00 Nasal Cannula 2 03/12/23 09:34 03/12/23 07:40 Nasal Cannula 2 03/12/23 07:26 Oxymask 1.5 03/12/23 03:07 Nasal Cannula 2 03/12/23 01:53 Nasal Cannula 2 Laboratory Results Short CBC 03/12/23 Range/Units 05:52 WBC 13.07 H (4.8-10.8) K/ul Hgb 14.4 (12.0-16.0) g/dl Hct 39.2 (37.0-47.0) % Plt Count 269 (130-400) K/uL BMP 03/11/23 03/11/23 03/12/23 11:58 18:25 05:52 Sodium 123 L 125 L 129 L Potassium 4.3 4.3 4.1 Chloride 81 L 80 L 81 L Carbon Dioxide 34 H 36 H 41 H* BUN 43 H D 34 H 62 H D Creatinine 0.46 L 0.59 L 0.61 Glucose 129 H 142 H 101 H Calcium 9.7 9.5 9.8 Medications Administered Current Inpatient Medications Acetaminophen (Acetaminophen 325 Mg Tab) 650 mg PO Q4H PRN PRN Reason: Pain or Fever Stop: 04/08/23 23:49 Last Admin: 03/10/23 22:52 Dose: 650 mg Alprazolam (Alprazolam 0.25 Mg Tablet) 0.25 mg PO BID PRN PRN Reason: agitation Stop: 04/09/23 20:59 Last Admin: 03/12/23 07:49 Dose: 0.25 mg Aspirin (Aspirin 81 Mg Ectab) 81 mg PO DAILY [facility] Stop: 04/09/23 08:59 Last Admin: 03/12/23 09:12 Dose: 81 mg Doxycycline Hyclate (Doxycycline Hyclate 100 Mg Cap) 100 mg PO BID [facility]AMAR Stop: 03/17/23 08:59 Last Admin: 03/12/23 09:13 Dose: 100 mg Furosemide (Furosemide Inj 20 Mg/2 Ml Vial) 20 mg IV Q4H [facility]AR Stop: 04/10/23 07:29 Last Admin: 03/12/23 07:49 Dose: 20 mg Hydralazine HCl (Hydralazine 10 Mg Tab) 10 mg PO BID [facility] Stop: 04/11/23 11:14 Cefazolin Sodium (Ancef 2000mg) 2,000 mg in 15 mls @ 3.75 mls/min IV Q8H [facility] Stop: 03/16/23 15:59 Last Admin: 03/12/23 07:50 Dose: 3.75 mls/min Ipratropium Bowdle (Ipratropium Bowdle Neb Soln 0.02% 2.5 Ml Vial) 0.5 mg INH Q6R [facility] Stop: 04/09/23 00:59 Last Admin: 03/12/23 07:24 Dose: 0.5 mg Isosorbide Dinitrate (Isosorbide Dinitrate 20 Mg Tab) 20 mg PO 0700,1200,1700 [facility] Stop: 04/11/23 11:59 Levalbuterol HCl (Levalbuterol 1.25 Mg/3 Ml Neb) 1.25 mg NEB Q6R [facility] Stop: 04/09/23 00:59 Last Admin: 03/12/23 07:24 Dose: 1.25 mg Metoprolol Succinate (Metoprolol Succ 50mg Ext Rel Tab) 50 mg PO TID [facility] Stop: 04/11/23 08:59 Last Admin: 03/12/23 09:13 Dose: 50 mg Metoprolol Tartrate (Metoprolol Tartrate 1 Mg/Ml Vial) 5 mg IV Q6 PRN PRN Reason: tachycardia >120 Stop: 04/09/23 11:59 Last Admin: 03/10/23 08:05 Dose: 5 mg Ondansetron HCl (Ondansetron Inj 2 Mg/Ml 2 Ml Vial) 4 mg IV Q6H PRN PRN Reason: Nausea And Vomiting Stop: 04/09/23 16:12 Last Admin: 03/12/23 11:34 Dose: 4 mg Potassium Chloride (Potassium Chloride 20 Meq/15 Ml Udc) 20 meq PO TID [facility] Stop: 04/10/23 08:59 Last Admin: 03/12/23 09:14 Dose: 20 meq Potassium Phosphate (Pot Phosphate Monobasic W/ Sod Tab) 1 tab PO TID [facility] Stop: 03/13/23 20:59 Last Admin: 03/12/23 09:14 Dose: 1 tab Prednisone (Prednisone 20 Mg Tab) 20 mg PO DAILY [facility] Stop: 03/15/23 12:59 Last Admin: 03/12/23 09:14 Dose: 20 mg Urea (Urea (Urea-Na) 15 Gm Pack) 15 gm PO BID [facility] Stop: 04/10/23 08:59 Last Admin: 03/11/23 21:15 Dose: 15 gm (6) Pneumonia Laterality: left Lung location: upper lobe of lung Pneumonia type: due to unspecified organism Qualified Code(s): J18.9 - Pneumonia, unspecified organism
[2023-03-12 12:26] LABS: BUN Creatinine Ratio 93.4 (10-20); Calcium 9.8 mg/dl (8.6-10.3); Creatinine Clr Calc Pharmacy 55.1 ml/min; Est GFR (African American) 101.3 ml/min; Est GFR (Non-African American) 87.4 ml/min; Potassium 4.9 mmol/L (3.5-5.1)
[2023-03-12] MEDS: hydrALAZINE 10 MG TAB PO SCH ×2 (12:35→20:23)
[2023-03-12] MEDS: ISOSORBIDE DINITRATE 20 MG TAB PO SCH ×2 (12:35→17:11)
[2023-03-12] MEDS: HEPARIN SOD 5,000 UNIT/0.5 ML VIAL SQ SCH ×2 (13:11→23:10)
[2023-03-12] MEDS: UREA (UREA-NA) 15 GM PACK PO SCH ×2 (13:12→20:23)
[2023-03-12] MEDS: ACETAMINOPHEN 325 MG TAB PO PRN ×2 (13:15→19:24)
--- NOTE | 2023-03-12 17:30 | Nephrology Progress Note ---
Date of Service March 12, 2023 Assessment & Plan (1) Hyponatremia: Plan: presenting sodium 119 03/09 1900 > goal is sNa no more than 135 tomorrow AM. euvolemic hypotonic hyponatremia in setting of severe structural lung disease, malnutrition/low solute diet. -maintain eukalemia -put hold parameters on standing K order 20 mEq tid -resume lasix 20 mg IV q4h and urea 15 gm bid which I had held this am d/t too rapid correction; continue to hold K -continue 1.2 L FR -protein shakes and urea or potassium meds don't count toward fluid limit -encourage high protein diet -continue strict I/O for now -next bmp in am Care coordinated w/ Dr Marks (2) Hypertensive emergency: Plan: defer management to cardiology given concern for ACS; continue lasix Admission and Anticipated Discharge Date Admission Date: March 09, 2023 Subjective had some heart burn late this afternoon; no sob; no uncontrolled pain; doing best she can to eat but little appetite Review of Systems Review of Systems: All systems reviewed & are unremarkable except as noted in Subjective Physical Exam Constitutional: well developed, + cachectic, + frail appearing and cooperative; no acute distress Eyes: EOM intact bilaterally ENMT: Ears: no external ear abnormality Nose: no external nose abnormality Mouth: + dry oral mucous membranes Neck: no nuchal rigidity Respiratory: normal respiratory effort Auscultation: + diminished lung sounds Cardiovascular: Rate/Rhythm: + tachycardic Extremities: no edema Gastrointestinal (Abdomen): Inspection/Auscultation: normal bowel sounds Percussion/Palpation: abdomen soft; abdomen nontender Musculoskeletal: Extremities: strength 5/5 throughout Skin: no rashes, warm and dry Psychiatric: Orientation: alert and oriented x 3 Affect: + flat affect Results & Data Vital Signs (Past 12 Hours) Vital Signs Temp Pulse Pulse Resp BP Pulse Ox O2 Del Method 03/12/23 15:39 36.6 C 101 H 18 93/57 L 99 Nasal Cannula 03/12/23 15:15 99 H 03/12/23 12:23 95 H 20 94 Nasal Cannula 03/12/23 11:36 36.4 C L 90 18 128/68 95 Nasal Cannula 03/12/23 08:00 Nasal Cannula 03/12/23 09:34 109 H 03/12/23 07:40 113 H 18 124/71 100 Nasal Cannula 03/12/23 07:26 115 H 25 H 94 Oxymask O2 Flow Rate 03/12/23 15:39 2 03/12/23 15:15 03/12/23 12:23 1 03/12/23 11:36 03/12/23 08:00 2 03/12/23 09:34 03/12/23 07:40 2 03/12/23 07:26 1.5 Laboratory Results 03/12/23 05:52 03/12/23 11:56
[2023-03-13] MEDS: LEVALBUTEROL 1.25 MG/3 ML NEB NEB SCH ×4 (00:31→19:36)
[2023-03-13] MEDS: IPRATROPIUM BROMIDE NEB SOLN 0.02% 2.5 ML VIAL INH SCH ×4 (00:31→19:36)
[2023-03-13] MEDS: FUROSEMIDE INJ 20 MG/2 ML VIAL IV SCH ×2 (04:03→07:32)
[2023-03-13] MEDS: HEPARIN SOD 5,000 UNIT/0.5 ML VIAL SQ SCH ×3 (06:38→21:01)
[2023-03-13] MEDS: ACETAMINOPHEN 325 MG TAB PO PRN (07:29)
[2023-03-13] MEDS: ALPRAZolam 0.25 MG TABLET PO PRN ×2 (07:30→18:14)
[2023-03-13] MEDS: ISOSORBIDE DINITRATE 20 MG TAB PO SCH ×3 (07:32→17:05)
[2023-03-13] MEDS: ceFAZolin 2000MG 2,000 MG/15 ML SYR IV SCH ×2 (07:37→17:04)
[2023-03-13 07:53] LABS: BUN Creatinine Ratio 105.2 (10-20); Calcium 10.4 mg/dl (8.6-10.3); Creatinine Clr Calc Pharmacy 44.4 ml/min; Est GFR (African American) 86.3 ml/min; Est GFR (Non-African American) 74.5 ml/min; Potassium 4.1 mmol/L (3.5-5.1)
[2023-03-13 07:54] LABS: Hematocrit (blood only) 43.9 % (37.0-47.0); Hemoglobin 15.4 g/dl (12.0-16.0); Mean Corpuscular Hemoglobin 30.5 pg (25.0-34.0); Mean Corpuscular Hgb Conc 35.1 g/dL (32.0-36.0); Mean Corpuscular Volume 86.9 fL (80.0-100.0); Mean Platelet Volume 11.2 fL (9.4-12.4); Platelet Count 248 K/uL (130-400); RDW Coefficient of Variation 11.7 % (11.5-14.5); RDW Standard Deviation 37.2 fL (36.4-46.3); Red Blood Count 5.05 M/uL (4.20-5.40); White Blood Count 11.37 K/ul (4.8-10.8)
[2023-03-13] MEDS: hydrALAZINE 10 MG TAB PO SCH ×2 (10:13→21:01)
[2023-03-13] MEDS: METOPROLOL SUCC 50MG EXT REL TAB PO SCH ×3 (10:21→21:00)
[2023-03-13] MEDS: ASPIRIN 81 MG ECTAB PO SCH (10:22)
[2023-03-13] MEDS: DOXYCYCLINE HYCLATE 100 MG CAP PO SCH ×2 (10:22→21:00)
[2023-03-13] MEDS: predniSONE 20 MG TAB PO SCH (10:23)
[2023-03-13] MEDS: UREA (UREA-NA) 15 GM PACK PO SCH (10:24)
--- NOTE | 2023-03-13 10:59 | Nephrology Progress Note ---
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 Euvolemic hypotonic hyponatremia in setting of severe structural lung disease, malnutrition/low solute diet. -maintain eukalemia -put hold parameters on standing K order 20 mEq tid -We will stop Lasix. -Continue urea 15 gm bid -continue 1.2 L FR -protein shakes and urea or potassium meds don't count toward fluid limit -encourage high protein diet -continue strict I/O for now -next bmp in am (2) Hypertensive emergency: Plan: defer management to cardiology given concern for ACS; continue lasix Admission and Anticipated Discharge Date Admission Date: March 09, 2023 Subjective Seen for hyponatremia. No shortness of breath. Patient reports to be eating her meals. She appears to struggle to swallow Review of Systems Review of Systems: All other systems were reviewed and negative except as noted in HPI Physical Exam Physical Exam: General exam: Cachectic, appears comfortable, no acute distress HEENT: Pupils are equal and reactive to light Neck: No JVD, neck is supple trachea is midline Respiratory system: Clear breath sounds bilaterally. Gastrointestinal: Abdomen is soft, non distended, non tender, bowel sounds are present CVS: Regular rate and rhythm. No murmurs, rubs or gallops Musculoskeletal: No joint or muscle tenderness Extremities: Non tender, no edema, peripheral pulses are present Neuro: Oriented, no tremors, no focal neurological deficits Skin: No rashes Results & Data Vital Signs (Past 12 Hours) Vital Signs Temp Pulse Pulse Pulse Resp BP Pulse Ox 03/13/23 08:00 109 H 03/13/23 08:00 03/13/23 08:01 36.6 C 120 H 27 H 93/67 L 94 03/13/23 07:12 113 H 14 94 03/13/23 03:21 36.4 C L 101 H 20 128/81 93 03/13/23 00:34 101 H 18 96 O2 Del Method O2 Flow Rate 03/13/23 08:00 03/13/23 08:00 Nasal Cannula 2 03/13/23 08:01 Nasal Cannula 2 03/13/23 07:12 Nasal Cannula 2 03/13/23 03:21 Nasal Cannula 2 03/13/23 00:34 Nasal Cannula 2 Laboratory Results 03/13/23 06:42 03/13/23 06:42 WBC 11.37 H RBC 5.05 MCV 86.9 D MCH 30.5 MCHC 35.1 RDW Std Deviation 37.2 RDW Coeff of Morro 11.7 Plt Count 248 MPV 11.2
--- NOTE | 2023-03-13 11:51 | Cardiology Progress Note ---
Date of Service March 13, 2023 Assessment & Plan (1) ST elevation on ECG: (2) Hypertensive emergency: (3) Apical ballooning syndrome: (4) Acute and chronic respiratory failure with hypercapnia: (5) COPD (chronic obstructive pulmonary disease): Plan Patient is a chronically and acutely ill 77-year-old female with severe COPD who presented with hypercapnic and hypoxic respiratory failure, hypertensive urgency. 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 Patient has been managed conservatively from ischemic standpoint due to marked metabolic and respiratory issues. Continues to deny any chest pain or discomfort other than persistent dyspnea. Continue current medications including metoprolol tartrate, low-dose hydralazine, and long-acting nitrates. Agree with palliative care evaluation. Admission and Anticipated Discharge Date Admission Date: March 09, 2023 Subjective Patient seen examined the bedside. Heart rate elevated this morning. Evening dose of metoprolol held due to parameters. Patient clinical status unchanged. Denies chest pain or palpitations. Review of Systems Review of Systems: All systems reviewed & are unremarkable except as noted in Subjective Physical Exam Constitutional: + cachectic Respiratory: + tachypneic Auscultation: + diminished lung sounds (Bilateral); no rales, no rhonchi and no wheezes Cardiovascular: Rate/Rhythm: regular rate, regular rhythm and + tachycardic Heart Sounds: no murmur Gastrointestinal (Abdomen): Inspection/Auscultation: abdomen normal to i nspection; abdomen not distended Percussion/Palpation: abdomen soft; abdomen nontender, no guarding and abdomen not rigid Neurologic: CN's II-XI intact bilaterally and moves all extremities; no focal motor deficits Psychiatric: A+Ox3, euthymic affect Results & Data Vital Signs (Past 12 Hours) Vital Signs Temp Pulse Pulse Pulse Resp BP Pulse Ox 03/13/23 11:18 36.7 C 108 H 26 H 101/60 92 03/13/23 08:00 109 H 03/13/23 08:00 03/13/23 08:01 36.6 C 120 H 27 H 93/67 L 94 03/13/23 07:12 113 H 14 94 03/13/23 03:21 36.4 C L 101 H 20 128/81 93 03/13/23 00:34 101 H 18 96 O2 Del Method O2 Flow Rate 03/13/23 11:18 Nasal Cannula 2 03/13/23 08:00 03/13/23 08:00 Nasal Cannula 2 03/13/23 08:01 Nasal Cannula 2 03/13/23 07:12 Nasal Cannula 2 03/13/23 03:21 Nasal Cannula 2 03/13/23 00:34 Nasal Cannula 2 Laboratory Results CBC 03/13/23 Range/Units 06:42 WBC 11.37 H (4.8-10.8) K/ul RBC 5.05 (4.20-5.40) M/uL Hgb 15.4 (12.0-16.0) g/dl Hct 43.9 (37.0-47.0) % Plt Count 248 (130-400) K/uL Comprehensive Metabolic Panel 03/12/23 03/13/23 Range/Units 11:56 06:42 Sodium 129 L 135 L (136-145) mmol/L Potassium 4.9 4.1 (3.5-5.1) mmol/L Chloride 83 L 84 L (98-107) mmol/L Carbon Dioxide 40 H 42 H* (21-32) mmol/L BUN 57 H 81 H D (6-23) mg/dl Creatinine 0.61 0.77 (0.6-1.2) mg/dl Glucose 120 H 107 H (70-99(Fasting)) mg/dl Calcium 9.8 10.4 H (8.6-10.3) mg/dl Intake and Output 03/12/23 03/13/23 03/13/23 22:59 06:59 14:59 Intake Total 575 / 721.333 Output Total 750 / 1500 750 / 1500 Balance -175 / -778.667 -750 / -778.667 Intake: Oral 575 / 575 Output: Urine Amount (Catheter) 750 / 1500 750 / 1500 Delgado/Indwelling 750 / 1500 750 / 1500 Other: Other Intake Source Sips Weight 46 kg Weight Measurement Method Built in [facility]
[2023-03-13] MEDS: LIDOCAINE 5% 1 PATCH TD SCH (11:54)
--- NOTE | 2023-03-13 12:29 | Hospitalist Progress Note ---
Date of Service March 13, 2023 Assessment & Plan (1) ST elevation on ECG: (2) Apical ballooning syndrome: (3) Acute and chronic respiratory failure: (4) Mass of left lung: (5) Pulmonary nodule, left: (6) Pneumonia: (7) Tobacco abuse: (8) COPD (chronic obstructive pulmonary disease): (9) Hyponatremia: (10) E. coli UTI: Plan 77 year old female presenting to the ED with SOB with worsening productive cough for few days. S/p BIPAP for respiratory distress. CT chest 1. No pulmonary embolism. 2. Masslike consolidation within the anterior aspect of the left upper lobe. Differential of pneumonia versus malignancy. 3. Pulmonary nodule at the left lower lobe base measuring 1.9 x 1.6 cm. 4. Severe emphysema. 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 Basilar segments are hyperdynamic. RVSP at 50-60 mm Hg. Plan: Acute on chronic respiratory failure with hypoxia-acute event resolved, currently saturating well at [address] with severe emphysema and KAYKAY mass. S/p BIPAP and now on NC 2L which is her home requirement. Seen by pulmonology. Recommendations noted. Continue supplemental oxygen with BIPAP prn. 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 - Seen by cardio- considering her multiple risk factors and frailty, recommended conservative management with heparin drip, BB, topical nitrates, aspirin and BP control. Poor prognosis per cardio. -Status post heparin drip for 48 hours, discontinued today 03/12 per cardiology -Continue Toprol, hydralazine, Isordil dinitrate as tolerated by BP. Further management per cardiology but overall prognosis remains limited Hyponatremia- Na 118->119->121->123->125->129->135. Nephro managing-on fluid restrictions. Will discontinue urea and Lasix. Recheck in a.m. E coli UTI- sensitive to Ancef. Deescalate ABx to ancef D4/5 Left upper lobe lung mass-suspected malignancy vs PNA. Also has LLL lung nodule known before. CT personally reviewed. Seen by pulmonology. Recommendations noted. Patient declines further work-up as she did in the past. COPD- does not seem to be in acute exacerbation. Prior heavy tobacco abuse, quit in December. Zosyn and solumedrol discontinued and started on low dose prednisone, doxy per pulmonology. Continue aerosols Hypertensive urgency-resolved, BP currently low normal limiting administration of rate controlling medication and GDMT. Severe protein-calorie malnutrition-- BMI 15.6. Dietitian eval. Hypophosphatemia-resolved with repletion Mild hypercalcemia-could be related to IV Lasix administration. Will monitor Chronic low back pain-lidocaine patch. Tylenol as needed. GOC discussion-palliative care following DVT ppx-SQ heparin Dispo- Continue current level of care. DNR/DNI Admission and Anticipated Discharge Date Admission Date: March 09, 2023 Subjective Patient was seen and examined at bedside. Complains of chronic low back pain. Feels tired. Poor appetite. Denies any chest pain or shortness of breath. No fever or chills. Review of Systems Review of Systems: All systems reviewed & are unremarkable except as noted in Subjective Physical Exam Physical Exam: General: Thin frail elderly female, lying comfortably in bed, not in distress, on NC HEENT: EZIO, MMM Chest: Decreased breath sounds bilaterally CVS: Tachycardic, normal heart sounds, no murmur Abdomen: Soft, non tender, not distended, normal bowel sounds Neuro: Awake, alert, oriented, conversing well, non focal Extremities: No cyanosis, clubbing or edema Delgado with mohini urine Results & Data Results & Data Vital Signs (Past 12 Hours) Vital Signs Temp Pulse Pulse Pulse Resp BP Pulse Ox 03/13/23 11:18 36.7 C 108 H 26 H 101/60 92 03/13/23 08:00 109 H 03/13/23 08:00 03/13/23 08:01 36.6 C 120 H 27 H 93/67 L 94 03/13/23 07:12 113 H 14 94 03/13/23 03:21 36.4 C L 101 H 20 128/81 93 03/13/23 00:34 101 H 18 96 O2 Del Method O2 Flow Rate 03/13/23 11:18 Nasal Cannula 2 03/13/23 08:00 03/13/23 08:00 Nasal Cannula 2 03/13/23 08:01 Nasal Cannula 2 03/13/23 07:12 Nasal Cannula 2 03/13/23 03:21 Nasal Cannula 2 03/13/23 00:34 Nasal Cannula 2 Laboratory Results Short CBC 03/13/23 Range/Units 06:42 WBC 11.37 H (4.8-10.8) K/ul Hgb 15.4 (12.0-16.0) g/dl Hct 43.9 (37.0-47.0) % Plt Count 248 (130-400) K/uL BMP 03/12/23 03/13/23 11:56 06:42 Sodium 129 L 135 L Potassium 4.9 4.1 Chloride 83 L 84 L Carbon Dioxide 40 H 42 H* BUN 57 H 81 H D Creatinine 0.61 0.77 Glucose 120 H 107 H Calcium 9.8 10.4 H Medications Administered Current Inpatient Medications Acetaminophen (Acetaminophen 325 Mg Tab) 650 mg PO Q4H PRN PRN Reason: Pain or Fever Stop: 04/08/23 23:49 Last Admin: 03/13/23 07:29 Dose: 650 mg Alprazolam (Alprazolam 0.25 Mg Tablet) 0.25 mg PO BID PRN PRN Reason: agitation Stop: 04/09/23 20:59 Last Admin: 03/13/23 07:30 Dose: 0.25 mg Aspirin (Aspirin 81 Mg Ectab) 81 mg PO DAILY [facility] Stop: 04/09/23 08:59 Last Admin: 03/13/23 10:22 Dose: 81 mg Doxycycline Hyclate (Doxycycline Hyclate 100 Mg Cap) 100 mg PO BID [facility] Stop: 03/17/23 08:59 Last Admin: 03/13/23 10:22 Dose: 100 mg Heparin Sodium (Porcine) (Heparin Sod 5,000 Unit/0.5 Ml Vial) 5,000 units SQ Q8 [facility] Stop: 04/11/23 13:59 Last Admin: 03/13/23 06:38 Dose: 5,000 units Hydralazine HCl (Hydralazine 10 Mg Tab) 10 mg PO BID [facility] Stop: 04/11/23 11:14 Last Admin: 03/13/23 10:13 Dose: Not Given Cefazolin Sodium (Ancef 2000mg) 2,000 mg in 15 mls @ 3.75 mls/min IV Q12H [facility] Stop: 03/16/23 15:59 Ipratropium [place] (Ipratropium [place] Neb Soln 0.02% 2.5 Ml Vial) 0.5 mg INH Q6R [facility] Stop: 04/09/23 00:59 Last Admin: 03/13/23 07:12 Dose: 0.5 mg Isosorbide Dinitrate (Isosorbide Dinitrate 20 Mg Tab) 20 mg PO 0700,1200,1700 [facility] Stop: 04/11/23 11:59 Last Admin: 03/13/23 10:14 Dose: Not Given Levalbuterol HCl (Levalbuterol 1.25 Mg/3 Ml Neb) 1.25 mg NEB Q6R [facility] Stop: 04/09/23 00:59 Last Admin: 03/13/23 07:12 Dose: 1.25 mg Lidocaine (Lidocaine 5% 1 Patch) 1 patch TD QAM [facility] Stop: 04/12/23 11:29 Last Admin: 03/13/23 11:54 Dose: 1 patch Metoprolol Succinate (Metoprolol Succ 50mg Ext Rel Tab) 50 mg PO TID [facility] Stop: 04/11/23 08:59 Last Admin: 03/13/23 10:21 Dose: 50 mg Miscellaneous (Remove Lidoderm Patch) 1 each N/A DAILY@2100 [facility] Stop: 04/12/23 22:59 Ondansetron HCl (Ondansetron Inj 2 Mg/Ml 2 Ml Vial) 4 mg IV Q6H PRN PRN Reason: Nausea And Vomiting Stop: 04/09/23 16:12 Last Admin: 03/12/23 11:34 Dose: 4 mg Prednisone (Prednisone 20 Mg Tab) 20 mg PO DAILY [facility] Stop: 03/15/23 12:59 Last Admin: 03/13/23 10:23 Dose: 20 mg (6) Pneumonia Laterality: left Lung location: upper lobe of lung Pneumonia type: due to unspecified organism Qualified Code(s): J18.9 - Pneumonia, unspecified organism
[2023-03-14] MEDS: IPRATROPIUM BROMIDE NEB SOLN 0.02% 2.5 ML VIAL INH SCH ×3 (00:26→15:41)
[2023-03-14] MEDS: LEVALBUTEROL 1.25 MG/3 ML NEB NEB SCH ×4 (00:26→15:41)
[2023-03-14] MEDS: ceFAZolin 2000MG 2,000 MG/15 ML SYR IV SCH ×2 (04:36→14:48)
[2023-03-14] MEDS: HEPARIN SOD 5,000 UNIT/0.5 ML VIAL SQ SCH ×3 (06:18→21:26)
[2023-03-14 07:05] LABS: Hematocrit (blood only) 43.2 % (37.0-47.0); Hemoglobin 14.7 g/dl (12.0-16.0); Mean Corpuscular Hemoglobin 30.1 pg (25.0-34.0); Mean Corpuscular Volume 88.5 fL (80.0-100.0); Mean Platelet Volume 10.9 fL (9.4-12.4); Platelet Count 252 K/uL (130-400); RDW Coefficient of Variation 11.8 % (11.5-14.5); RDW Standard Deviation 37.3 fL (36.4-46.3); Red Blood Count 4.88 M/uL (4.20-5.40); White Blood Count 10.74 K/ul (4.8-10.8)
[2023-03-14 07:26] LABS: BUN Creatinine Ratio 126.2 (10-20); Calcium 10.5 mg/dl (8.6-10.3); Creatinine Clr Calc Pharmacy 53.6 ml/min; Est GFR (African American) 99.3 ml/min; Est GFR (Non-African American) 85.6 ml/min; Potassium 4.1 mmol/L (3.5-5.1)
[2023-03-14 07:30] LABS: Troponin I High Sensitivity 242.5 pg/ml (0-14)
[2023-03-14] MEDS ORDERED: SODIUM CHLORIDE 0.9% 1000ML 1,000 ML IV SCH (07:45)
[2023-03-14] MEDS: ALPRAZolam 0.25 MG TABLET PO PRN ×2 (08:06→19:49)
[2023-03-14] MEDS: hydrALAZINE 10 MG TAB PO SCH ×2 (08:07→19:54)
[2023-03-14] MEDS: METOPROLOL SUCC 50MG EXT REL TAB PO SCH ×3 (08:07→19:53)
[2023-03-14] MEDS: ISOSORBIDE DINITRATE 20 MG TAB PO SCH ×3 (08:07→16:59)
[2023-03-14] MEDS: LIDOCAINE 5% 1 PATCH TD SCH (08:08)
[2023-03-14] MEDS: DOXYCYCLINE HYCLATE 100 MG CAP PO SCH ×2 (08:08→19:53)
[2023-03-14] MEDS: ASPIRIN 81 MG ECTAB PO SCH (08:08)
[2023-03-14] MEDS: predniSONE 20 MG TAB PO SCH (08:10)
--- NOTE | 2023-03-14 11:14 | Hospitalist Progress Note ---
Date of Service March 14, 2023 Assessment & Plan (1) ST elevation on ECG: (2) Apical ballooning syndrome: (3) Acute and chronic respiratory failure: (4) Mass of left lung: (5) Pulmonary nodule, left: (6) Pneumonia: (7) Tobacco abuse: (8) COPD (chronic obstructive pulmonary disease): (9) Hyponatremia: (10) E. coli UTI: Plan 77 year old female presenting to the ED with SOB with worsening productive cough for few days. S/p BIPAP for respiratory distress. CT chest 1. No pulmonary embolism. 2. Masslike consolidation within the anterior aspect of the left upper lobe. Differential of pneumonia versus malignancy. 3. Pulmonary nodule at the left lower lobe base measuring 1.9 x 1.6 cm. 4. Severe emphysema. 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 Basilar segments are hyperdynamic. RVSP at 50-60 mm Hg. Plan: Acute on chronic respiratory failure with hypoxia-acute event resolved, currently saturating well at [address] L[address] Resp biofire negative. CT with severe emphysema and KAYKAY mass. S/p BIPAP and now on NC 2L which is her home requirement. Seen by pulmonology. Recommendations noted. Continue supplemental oxygen with BIPAP prn. 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 - Seen by cardio- considering her multiple risk factors and frailty, recommended conservative management with heparin drip, BB, topical nitrates, aspirin and BP control. Poor prognosis per cardio. -Status post heparin drip for 48 hours, discontinued today 03/12 per cardiology -Continue Toprol, hydralazine, Isordil dinitrate as tolerated by BP. Further management per cardiology but overall prognosis remains limited Hyponatremia- Resolved. Na 118->119->121->123->125->129->135->138. Nephro following. S/p urea and Lasix and discontinued 03/13. Will liberalize fluid restriction. E coli UTI- sensitive to Ancef. Deescalate ABx to ancef D5/5 Left upper lobe lung mass-suspected malignancy vs PNA. Also has LLL lung nodule known before. CT personally reviewed. Seen by pulmonology. Recommendations noted. Patient declines further work-up as she did in the past. COPD- does not seem to be in acute exacerbation. Prior heavy tobacco abuse, quit in December. Zosyn and solumedrol discontinued and started on low dose prednisone, doxy per pulmonology. Continue aerosols Hypertensive urgency-resolved, BP now normal. On HLZ, isosorbide, toprol Severe protein-calorie malnutrition-- BMI 15.6. Dietitian eval. Mild hypercalcemia- likely dehydration. Will liberalize fluid intake and start on gentle IVF. Recheck in am Chronic low back pain-lidocaine patch. Tylenol as needed. GOC discussion-palliative care following DVT ppx-SQ heparin Dispo- Continue current level of care. DNR/DNI Admission and Anticipated Discharge Date Admission Date: March 09, 2023 Subjective Patient was seen and examined at bedside. States that she is hanging in there and taking one day at a time. She feels tired. Denies chest pain. She states she felt rough this morning and could not do breathing treatment. No fever, chills, N/V. Review of Systems Review of Systems: All systems reviewed & are unremarkable except as noted in Subjective Physical Exam Physical Exam: General: Thin frail elderly female, lying comfortably in bed, not in distress, on NC HEENT: EZIO, MMM Chest: Decreased breath sounds bilaterally CVS: Tachycardic, normal heart sounds, no murmur Abdomen: Soft, non tender, not distended, normal bowel sounds Neuro: Awake, alert, oriented, conversing well, non focal Extremities: No cyanosis, clubbing or edema Delgado with mohini urine Results & Data Results & Data Vital Signs (Past 12 Hours) Vital Signs Temp Pulse Pulse Pulse Resp BP Pulse Ox 03/14/23 09:23 100 H 19 03/14/23 08:00 03/14/23 07:42 100 H 03/14/23 07:29 36.7 C 106 H 16 120/69 95 03/14/23 03:11 36.5 C 98 H 18 134/82 98 03/13/23 23:22 36.4 C L 110 H 18 118/75 95 O2 Del Method O2 Flow Rate FiO2 03/14/23 09:23 Nasal Cannula 2 96 03/14/23 08:00 Nasal Cannula 07/02/23 07:42 03/14/23 07:29 Nasal Cannula 2 03/14/23 03:11 Nasal Cannula 2 03/13/23 23:22 Nasal Cannula 2 Laboratory Results Short CBC 03/14/23 Range/Units 06:41 WBC 10.74 (4.8-10.8) K/ul Hgb 14.7 (12.0-16.0) g/dl Hct 43.2 (37.0-47.0) % Plt Count 252 (130-400) K/uL BMP 03/14/23 06:41 Sodium 138 Potassium 4.1 Chloride 88 L Carbon Dioxide 44 H* BUN 82 H Creatinine 0.65 Glucose 105 H Calcium 10.5 H Medications Administered Current Inpatient Medications Acetaminophen (Acetaminophen 325 Mg Tab) 650 mg PO Q4H PRN PRN Reason: Pain or Fever Stop: 04/08/23 23:49 Last Admin: 03/13/23 07:29 Dose: 650 mg Alprazolam (Alprazolam 0.25 Mg Tablet) 0.25 mg PO BID PRN PRN Reason: agitation Stop: 04/09/23 20:59 Last Admin: 03/14/23 08:06 Dose: 0.25 mg Aspirin (Aspirin 81 Mg Ectab) 81 mg PO DAILY [facility] Stop: 04/09/23 08:59 Last Admin: 03/14/23 08:08 Dose: 81 mg Doxycycline Hyclate (Doxycycline Hyclate 100 Mg Cap) 100 mg PO BID [facility] Stop: 03/17/23 08:59 Last Admin: 03/14/23 08:08 Dose: 100 mg Heparin Sodium (Porcine) (Heparin Sod 5,000 Unit/0.5 Ml Vial) 5,000 units SQ Q8 [facility] Stop: 04/11/23 13:59 Last Admin: 03/14/23 06:18 Dose: 5,000 units Hydralazine HCl (Hydralazine 10 Mg Tab) 10 mg PO BID [facility] Stop: 04/11/23 11:14 Last Admin: 03/14/23 08:07 Dose: 10 mg Cefazolin Sodium (Ancef 2000mg) 2,000 mg in 15 mls @ 3.75 mls/min IV Q12H [facility] Stop: 03/16/23 15:59 Last Admin: 03/14/23 04:36 Dose: 3.75 mls/min Sodium Chloride (Nss 1000ml) 1,000 mls @ 40 mls/hr IV .Q24H [facility] Stop: 04/13/23 07:44 Last Admin: 03/14/23 08:56 Dose: 40 mls/hr Ipratropium Dunbar (Ipratropium [place]bar Neb Soln 0.02% 2.5 Ml Vial) 0.5 mg INH Q6R [facility] Stop: 04/09/23 00:59 Last Admin: 03/14/23 07:19 Dose: Not Given Isosorbide Dinitrate (Isosorbide Dinitrate 20 Mg Tab) 20 mg PO 0700,1200,1700 [facility] Stop: 04/11/23 11:59 Last Admin: 03/14/23 08:07 Dose: 20 mg Levalbuterol HCl (Levalbuterol 1.25 Mg/3 Ml Neb) 1.25 mg NEB Q6R [facility] Stop: 04/09/23 00:59 Last Admin: 03/14/23 09:20 Dose: 1.25 mg Lidocaine (Lidocaine 5% 1 Patch) 1 patch TD QAM [facility] Stop: 04/12/23 11:29 Last Admin: 03/14/23 08:08 Dose: 1 patch Metoprolol Succinate (Metoprolol Succ 50mg Ext Rel Tab) 50 mg PO TID [facility] Stop: 04/11/23 08:59 Last Admin: 03/14/23 08:07 Dose: 50 mg Miscellaneous (Remove Lidoderm Patch) 1 each N/A DAILY@2100 [facility] Stop: 04/12/23 22:59 Last Admin: 03/13/23 21:01 Dose: 1 each Ondansetron HCl (Ondansetron Inj 2 Mg/Ml 2 Ml Vial) 4 mg IV Q6H PRN PRN Reason: Nausea And Vomiting Stop: 04/09/23 16:12 Last Admin: 03/12/23 11:34 Dose: 4 mg Prednisone (Prednisone 20 Mg Tab) 20 mg PO DAILY [facility] Stop: 03/15/23 12:59 Last Admin: 03/14/23 08:10 Dose: 20 mg (6) Pneumonia Laterality: left Lung location: upper lobe of lung Pneumonia type: due to unspecified organism Qualified Code(s): J18.9 - Pneumonia, unspecified organism
--- NOTE | 2023-03-14 11:37 | Nephrology Progress Note ---
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 Euvolemic hypotonic hyponatremia in setting of severe structural lung disease, malnutrition/low solute diet. -maintain eukalemia -put hold parameters on standing K order 20 mEq tid -We will stop Lasix. -Stop urea as well -Remove the fluid restriction -encourage high protein diet -continue strict I/O for now -no need for IV fluids unless hypotensive (2) Hypertensive emergency: Plan: Blood pressure has improved. Admission and Anticipated Discharge Date Admission Date: March 09, 2023 Subjective Seen in follow-up for hyponatremia. She feels better today. Sodium is now normal. Review of Systems Review of Systems: All other systems were reviewed and negative except as noted in HPI Physical Exam Physical Exam: General exam: Cachectic, appears comfortable, no acute distress HEENT: Pupils are equal and reactive to light Neck: No JVD, neck is supple trachea is midline Respiratory system: Clear breath sounds bilaterally. Gastrointestinal: Abdomen is soft, non distended, non tender, bowel sounds are present CVS: Regular rate and rhythm. No murmurs, rubs or gallops Musculoskeletal: No joint or muscle tenderness Extremities: Non tender, no edema, peripheral pulses are present Neuro: Oriented, no tremors, no focal neurological deficits Skin: No rashes Results & Data Vital Signs (Past 12 Hours) Vital Signs Temp Pulse Pulse Pulse Resp BP Pulse Ox 03/14/23 11:12 36.8 C 108 H 18 108/57 L 97 03/14/23 09:23 100 H 19 03/14/23 08:00 03/14/23 07:42 100 H 03/14/23 07:29 36.7 C 106 H 16 120/69 95 03/14/23 03:11 36.5 C 98 H 18 134/82 98 O2 Del Method O2 Flow Rate FiO2 03/14/23 11:12 Nasal Cannula 2 03/14/23 09:23 Nasal Cannula 2 96 03/14/23 08:00 Nasal Cannula 03/14/23 07:42 03/14/23 07:29 Nasal Cannula 2 03/14/23 03:11 Nasal Cannula 2 Laboratory Results 03/14/23 06:41 03/14/23 06:41 WBC 10.74 RBC 4.88 MCV 88.5 MCH 30.1 MCHC 34.0 RDW Std Deviation 37.3 RDW Coeff of Morro 11.8 Plt Count 252 MPV 10.9
[2023-03-14] MEDS: IPRATROPIUM BROMIDE NEB SOLN 0.02% 2.5 ML VIAL INH PRN (16:14)
[2023-03-14] MEDS: LEVALBUTEROL 1.25 MG/3 ML NEB NEB PRN (16:14)
[2023-03-14] MEDS ORDERED: POLYETHYLENE (MIRALAX) 17 GM PACK PO PRN (18:05)
[2023-03-14] MEDS: ACETAMINOPHEN 325 MG TAB PO PRN (19:49)
[2023-03-14] MEDS: DOCUSATE SODIUM/SENNA 50/8.6MG TAB PO SCH (19:51)
[2023-03-14] MEDS: PANTOprazole 40 MG TAB PO SCH (19:51)
[2023-03-15] MEDS: ceFAZolin 2000MG 2,000 MG/15 ML SYR IV SCH ×2 (02:37→13:08)
[2023-03-15] MEDS: HEPARIN SOD 5,000 UNIT/0.5 ML VIAL SQ SCH ×3 (06:17→21:12)
[2023-03-15 06:36] LABS: Hematocrit (blood only) 42.8 % (37.0-47.0); Hemoglobin 14.1 g/dl (12.0-16.0); Mean Corpuscular Hemoglobin 30.1 pg (25.0-34.0); Mean Corpuscular Hgb Conc 32.9 g/dL (32.0-36.0); Mean Corpuscular Volume 91.3 fL (80.0-100.0); Mean Platelet Volume 10.8 fL (9.4-12.4); Platelet Count 246 K/uL (130-400); RDW Coefficient of Variation 11.8 % (11.5-14.5); RDW Standard Deviation 39.3 fL (36.4-46.3); Red Blood Count 4.69 M/uL (4.20-5.40); White Blood Count 8.82 K/ul (4.8-10.8)
[2023-03-15 07:07] LABS: Blood Urea Nitrogen 49 mg/dl (6-23); Calcium 10.3 mg/dl (8.6-10.3); Carbon Dioxide > 45 mmol/L (21-32); Chloride 91 mmol/L (98-107); Creatinine Clr Calc Pharmacy 60.9 ml/min; Est GFR (African American) 103.6 ml/min; Est GFR (Non-African American) 89.4 ml/min; Glucose 104 mg/dl (70-99(Fasting)); Potassium 3.9 mmol/L (3.5-5.1); Sodium 141 mmol/L (136-145)
[2023-03-15] MEDS: ALPRAZolam 0.25 MG TABLET PO PRN ×2 (07:44→20:01)
[2023-03-15] MEDS: ISOSORBIDE DINITRATE 20 MG TAB PO SCH ×3 (07:45→16:27)
[2023-03-15] MEDS: ASPIRIN 81 MG ECTAB PO SCH (07:45)
[2023-03-15] MEDS: METOPROLOL SUCC 50MG EXT REL TAB PO SCH ×3 (07:46→20:03)
[2023-03-15] MEDS: hydrALAZINE 10 MG TAB PO SCH ×2 (07:46→20:03)
[2023-03-15] MEDS: DOXYCYCLINE HYCLATE 100 MG CAP PO SCH ×2 (07:46→20:02)
[2023-03-15] MEDS: predniSONE 20 MG TAB PO SCH (07:47)
[2023-03-15] MEDS: PANTOprazole 40 MG TAB PO SCH (07:47)
[2023-03-15] MEDS: LIDOCAINE 5% 1 PATCH TD SCH (07:48)
[2023-03-15] MEDS: IPRATROPIUM BROMIDE NEB SOLN 0.02% 2.5 ML VIAL INH PRN ×2 (09:45→18:23)
[2023-03-15] MEDS: LEVALBUTEROL 1.25 MG/3 ML NEB NEB PRN ×2 (09:46→18:23)
--- NOTE | 2023-03-15 12:36 | Palliative Care Progress Note ---
Date of Service March 15, 2023 Assessment & Plan (1) Dyspnea: Plan: Improved but prognosis remains poor (2) Weakness generalized: Plan: Will need SNF placement on discharge (3) Nausea: Plan: Resolved. Likely medication related (4) Palliative care encounter: Plan: Sara understands that her prognosis is poor. She does not want aggressive interventions but in the last day or two has been able to enjoy time with her family which is very important to her. She would want to continue current level of care. She would like to try rehab at SNF but understands that her rehab potential is limited. Her nephew, Gabriele, presented POA documentation completed by Sara in 2004. In that document, he and two other individuals are listed as coPOAs for both medical and financial matters. The other two individuals named on the 2004 document are now . Sara has since completed POA documentation naming her niece, Denise Davis as her medical POA. She has consistently said that she would want Denise to make medical decisions on her behalf if she were unable to do so. Discussed with Gabriele and Denise who are siblings. With most recent documentation, Denise would be responsible for medical decisions while Gabriele would be responsible for financial matters. They are in agreement and are supportive of Sara and the decisions that she has made. Discussed with case management Admission and Anticipated Discharge Date Admission Date: March 09, 2023 Subjective Feeling better today. More alert. Appetite poor but improving per family. Denies dyspnea or pain. Daughter, granddaughter, niece and nephew at bedside. Review of Systems Review of Systems: ESAS Pain 0/3 Dyspnea 0/3 at rest, does have dyspnea with exertion Nausea 0/3 Drowsiness 0/3 Physical Exam Constitutional: no acute distress Respiratory: normal respiratory effort; no labored breathing Cardiovascular: Rate/Rhythm: + tachycardic Musculoskeletal: Extremities: + muscle atrophy Neurologic: Speech / Cognition: normal cognition Genitourinary: Continent Results & Data Vital Signs (Past 12 Hours) Vital Signs Temp Pulse Pulse Pulse Resp BP Pulse Ox 03/15/23 11:36 97.9 F 104 H 18 134/73 94 03/15/23 09:46 96 H 22 95 03/15/23 08:00 96 H 03/15/23 07:15 03/15/23 07:02 98.1 F 100 H 18 116/78 95 03/15/23 02:39 97.9 F 92 H 20 155/83 H 99 O2 Del Method O2 Flow Rate 03/15/23 11:36 Nasal Cannula 2 03/15/23 09:46 Nasal Cannula 2 03/15/23 08:00 03/15/23 07:15 Nasal Cannula 2 03/15/23 07:02 Nasal Cannula 03/15/23 02:39 Nasal Cannula 2 PG Care Time/CCT Total # of Minutes Spent Total Time Spent: 45 Total Time Spent with Patient: Total time spent is greater than 50% in coordination of care (as documented) at patient's floor/unit and/or counseling patient: goals of care, family education and support, symptom management Coding Level of Care Code 53932 SUB INP/OBS CARE 2/35MIN Diagnoses Dyspnea R06.00 Weakness generalized R53.1 Nausea R11.0 Palliative care encounter Z51.5
--- NOTE | 2023-03-15 13:03 | Hospitalist Progress Note ---
Date of Service March 15, 2023 Assessment & Plan (1) ST elevation on ECG: (2) Apical ballooning syndrome: (3) Acute and chronic respiratory failure: (4) Mass of left lung: (5) Pulmonary nodule, left: (6) Pneumonia: (7) Tobacco abuse: (8) COPD (chronic obstructive pulmonary disease): (9) Hyponatremia: (10) E. coli UTI: Plan 77 year old female presenting to the ED with SOB with worsening productive cough for few days. S/p BIPAP for respiratory distress. CT chest 1. No pulmonary embolism. 2. Masslike consolidation within the anterior aspect of the left upper lobe. Differential of pneumonia versus malignancy. 3. Pulmonary nodule at the left lower lobe base measuring 1.9 x 1.6 cm. 4. Severe emphysema. 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 Basilar segments are hyperdynamic. RVSP at 50-60 mm Hg. Plan: Acute on chronic respiratory failure with hypoxia-acute event resolved, currently saturating well at [address] negative. [address] with severe emphysema and KAYKAY mass. S/p BIPAP and now on NC 2L which is her home requirement. Seen by pulmonology. Recommendations noted. Continue supplemental oxygen with BIPAP prn. 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 - Seen by cardio- considering her multiple risk factors and frailty, recommended conservative management with heparin drip, BB, topical nitrates, aspirin and BP control. Poor prognosis per cardio. -Status post heparin drip for 48 hours, discontinued today 03/12 per cardiology -Continue Toprol, hydralazine, Isordil dinitrate as tolerated by BP. Further management per cardiology but overall prognosis remains limited Hyponatremia- Resolved. Na 118->119->121->123->125->129->135->138. Nephro following. S/p urea and Lasix and discontinued 03/13. Metabolic alkalosis-CO2 level noted. Discussed with nephrology. Recheck in a.m. Lasix has been since discontinued. E coli UTI- sensitive to Ancef. Completed 5-day antibiotic course Left upper lobe lung mass-suspected malignancy vs PNA. Also has LLL lung nodule known before. CT personally reviewed. Seen by pulmonology. Recommendations noted. Patient declines further work-up as she did in the past. COPD- does not seem to be in acute exacerbation. Prior heavy tobacco abuse, quit in December. Zosyn and solumedrol discontinued and started on low dose prednisone completing today, doxy per pulmonology. Continue aerosols Hypertensive urgency-resolved, BP now normal. On HLZ, isosorbide, toprol Severe protein-calorie malnutrition-- BMI 15.6. Dietitian eval. Mild hypercalcemia-resolved with gentle IVF. Likely from dehydration. Chronic low back pain-lidocaine patch. Tylenol as needed. GOC discussion-palliative care following. Continue current level of care DVT ppx-SQ heparin Dispo-PT OT evaluation for discharge planning. Patient would likely need SNF. DNR/DNI Updated family at bedside Admission and Anticipated Discharge Date Admission Date: March 09, 2023 Subjective Patient was seen and examined at bedside in presence of her niece, nephew and daughter. She is feeling better today. Appetite is improving. Denies any chest pain or shortness of breath. Had small bowel movement overnight. No fever, chills, nausea or vomiting. Review of Systems Review of Systems: All systems reviewed & are unremarkable except as noted in Subjective Physical Exam Physical Exam: General: Thin frail elderly female, lying comfortably in bed, not in distress, on NC HEENT: EZIO, MMM Chest: Decreased breath sounds bilaterally CVS: Tachycardic, normal heart sounds, no murmur Abdomen: Soft, non tender, not distended, normal bowel sounds Neuro: Awake, alert, oriented, conversing well, non focal Extremities: No cyanosis, clubbing or edema Delgado with mohini urine Results & Data Results & Data Vital Signs (Past 12 Hours) Vital Signs Temp Pulse Pulse Pulse Resp BP Pulse Ox 03/15/23 11:36 36.6 C 104 H 18 134/73 94 03/15/23 09:46 96 H 22 95 03/15/23 08:00 96 H 03/15/23 07:15 03/15/23 07:02 36.7 C 100 H 18 116/78 95 03/15/23 02:39 36.6 C 92 H 20 155/83 H 99 O2 Del Method O2 Flow Rate 03/15/23 11:36 Nasal Cannula 2 03/15/23 09:46 Nasal Cannula 2 03/15/23 08:00 03/15/23 07:15 Nasal Cannula 2 03/15/23 07:02 Nasal Cannula 03/15/23 02:39 Nasal Cannula 2 Laboratory Results Short CBC 03/15/23 Range/Units 06:09 WBC 8.82 (4.8-10.8) K/ul Hgb 14.1 (12.0-16.0) g/dl Hct 42.8 (37.0-47.0) % Plt Count 246 (130-400) K/uL BMP 03/15/23 06:09 Sodium 141 Potassium 3.9 Chloride 91 L Carbon Dioxide > 45 H* BUN 49 H D Creatinine 0.57 L Glucose 104 H Calcium 10.3 Medications Administered Current Inpatient Medications Acetaminophen (Acetaminophen 325 Mg Tab) 650 mg PO Q4H PRN PRN Reason: Pain or Fever Stop: 04/08/23 23:49 Last Admin: 03/14/23 19:49 Dose: 650 mg Alprazolam (Alprazolam 0.25 Mg Tablet) 0.25 mg PO BID PRN PRN Reason: agitation Stop: 04/09/23 20:59 Last Admin: 03/15/23 07:44 Dose: 0.25 mg Aspirin (Aspirin 81 Mg Ectab) 81 mg PO DAILY QAMAR Stop: 04/09/23 08:59 Last Admin: 03/15/23 07:45 Dose: 81 mg Doxycycline Hyclate (Doxycycline Hyclate 100 Mg Cap) 100 mg PO BID QAMAR Stop: 03/17/23 08:59 Last Admin: 03/15/23 07:46 Dose: 100 mg Heparin Sodium (Porcine) (Heparin Sod 5,000 Unit/0.5 Ml Vial) 5,000 units SQ Q8 QAMAR Stop: 04/11/23 13:59 Last Admin: 03/15/23 06:17 Dose: 5,000 units Hydralazine HCl (Hydralazine 10 Mg Tab) 10 mg PO BID QAMAR Stop: 04/11/23 11:14 Last Admin: 03/15/23 07:46 Dose: 10 mg Cefazolin Sodium (Ancef 2000mg) 2,000 mg in 15 mls @ 3.75 mls/min IV Q12H QAMAR Stop: 03/16/23 15:59 Last Admin: 03/15/23 02:37 Dose: 3.75 mls/min Ipratropium [place] (Ipratropium [place] Neb Soln 0.02% 2.5 Ml Vial) 0.5 mg INH Q6R PRN PRN Reason: Shortness Of Breath Or Wheezing Stop: 04/09/23 00:59 Last Admin: 03/15/23 09:45 Dose: 0.5 mg Isosorbide Dinitrate (Isosorbide Dinitrate 20 Mg Tab) 20 mg PO 0700,1200,1700 [facility] Stop: 04/11/23 11:59 Last Admin: 03/15/23 11:27 Dose: 20 mg Levalbuterol HCl (Levalbuterol 1.25 Mg/3 Ml Neb) 1.25 mg NEB Q6R PRN PRN Reason: Shortness Of Breath Or Wheezing Stop: 04/09/23 00:59 Last Admin: 03/15/23 09:46 Dose: 1.25 mg Lidocaine (Lidocaine 5% 1 Patch) 1 patch TD [facility] Stop: 04/12/23 11:29 Last Admin: 03/15/23 07:48 Dose: 1 patch Metoprolol Succinate (Metoprolol Succ 50mg Ext Rel Tab) 50 mg PO TID [facility] Stop: 04/11/23 08:59 Last Admin: 03/15/23 07:46 Dose: 50 mg Miscellaneous (Remove Lidoderm Patch) 1 each N/A DAILY@2100 [facility] Stop: 04/12/23 22:59 Last Admin: 03/14/23 19:55 Dose: 1 each Ondansetron HCl (Ondansetron Inj 2 Mg/Ml 2 Ml Vial) 4 mg IV Q6H PRN PRN Reason: Nausea And Vomiting Stop: 04/09/23 16:12 Last Admin: 03/12/23 11:34 Dose: 4 mg Pantoprazole Sodium (Pantoprazole 40 Mg Tab) 40 mg PO QAM [facility] Stop: 04/13/23 18:14 Last Admin: 03/15/23 07:47 Dose: 40 mg Polyethylene Glycol (Polyethylene (Miralax) 17 Gm Pack) 17 gm PO DAILY PRN PRN Reason: Constipation Stop: 04/13/23 18:04 Senna/Docusate Sodium (Docusate Sodium/Senna 50/8.6mg Tab) 1 tab PO HS QAMAR Stop: 04/13/23 20:59 Last Admin: 03/14/23 19:51 Dose: 1 tab (6) Pneumonia Laterality: left Lung location: upper lobe of lung Pneumonia type: due to unspecified organism Qualified Code(s): J18.9 - Pneumonia, unspecified organism
--- NOTE | 2023-03-15 17:10 | Cardiology Progress Note ---
Date of Service March 15, 2023 Assessment & Plan (1) ST elevation on ECG: (2) Hypertensive emergency: (3) Apical ballooning syndrome: (4) Acute and chronic respiratory failure with hypercapnia: (5) COPD (chronic obstructive pulmonary disease): Plan Patient is a chronically and acutely ill 77-year-old female with severe COPD who presented with hypercapnic and hypoxic respiratory failure, hypertensive urgency. 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 The significant EKG and echocardiographic abnormality is out of proportion to the relatively mild elevation in the troponin levels. Patient has been managed conservatively from ischemic standpoint due to marked metabolic and respiratory issues. Continues to deny any chest pain or discomfort other than persistent dyspnea. Continue current medications including metoprolol tartrate, low-dose hydralazine, and long-acting nitrates. Repeat EKG in am of 03/16/23. DVT prophylaxis: SQ heparin Admission and Anticipated Discharge Date Admission Date: March 09, 2023 Subjective Patient seen in cardiology follow-up. Multiple family members visiting at the time my assessment. Patient without acute distress. Physical Exam Constitutional: + ill appearing, + thin, + cachectic and + in distress Eyes: PERRL, conjunctivae normal, anicteric sclerae ENMT: external ear and nose normal, oropharynx normal Neck: trachea midline, no thyromegaly Respiratory: + tachypneic Auscultation: + diminished lung sounds (Bilateral); no rales, no rhonchi and no wheezes Cardiovascular: Rate/Rhythm: regular rate, regular rhythm and + tachycardic Heart Sounds: normal S1 and normal S2; no murmur Vessels: no JVD Extremities: no edema Gastrointestinal (Abdomen): normal bowel sounds, soft, nontender, no hepatosplenomegaly Inspection/Auscultation: abdomen normal to inspection; abdomen not distended Percussion/Palpation: abdomen soft; abdomen nontender, no guarding and abdomen not rigid Neurologic: CN's II-XI intact bilaterally and moves all extremities; no focal motor deficits Psychiatric: A+Ox3, euthymic affect Results & Data Vital Signs (Past 12 Hours) Vital Signs Temp Pulse Pulse Pulse Resp BP Pulse Ox 03/15/23 15:47 36.7 C 100 H 18 144/83 H 94 03/15/23 11:36 36.6 C 104 H 18 134/73 94 03/15/23 09:46 96 H 22 95 03/15/23 08:00 96 H 03/15/23 07:15 03/15/23 07:02 36.7 C 100 H 18 116/78 95 O2 Del Method O2 Flow Rate 03/15/23 15:47 Room Air 03/15/23 11:36 Nasal Cannula 2 03/15/23 09:46 Nasal Cannula 2 03/15/23 08:00 03/15/23 07:15 Nasal Cannula 2 03/15/23 07:02 Nasal Cannula Laboratory Results CBC 03/15/23 Range/Units 06:09 WBC 8.82 (4.8-10.8) K/ul RBC 4.69 (4.20-5.40) M/uL Hgb 14.1 (12.0-16.0) g/dl Hct 42.8 (37.0-47.0) % Plt Count 246 (130-400) K/uL Comprehensive Metabolic Panel 03/15/23 Range/Units 06:09 Sodium 141 (136-145) mmol/L Potassium 3.9 (3.5-5.1) mmol/L Chloride 91 L (98-107) mmol/L Carbon Dioxide > 45 H* (21-32) mmol/L BUN 49 H D (6-23) mg/dl Creatinine 0.57 L (0.6-1.2) mg/dl Glucose 104 H (70-99(Fasting)) mg/dl Calcium 10.3 (8.6-10.3) mg/dl Intake and Output 03/15/23 03/15/23 03/15/23 06:59 14:59 22:59 Intake Total 200 / 642 220 / 220 Output Total 600 / 950 351 / 351 Balance -400 / -308 -131 / -131 Intake: Oral 200 / 520 220 / 220 Output: Urine Amount (Catheter) 600 / 950 350 / 350 Delgado/Indwelling 600 / 950 350 / 350 # Bowel Movements Other: Weight 46.7 kg 46.7 kg Patient Weight 03/16/23 06:59 Weight 46.7 kg
[2023-03-15] MEDS: DOCUSATE SODIUM/SENNA 50/8.6MG TAB PO SCH (20:02)
[2023-03-16] MEDS: ceFAZolin 2000MG 2,000 MG/15 ML SYR IV SCH ×3 (01:10→22:30)
[2023-03-16] MEDS: HEPARIN SOD 5,000 UNIT/0.5 ML VIAL SQ SCH ×3 (05:32→22:17)
[2023-03-16 06:55] LABS: Hematocrit (blood only) 41.5 % (37.0-47.0); Hemoglobin 13.5 g/dl (12.0-16.0); Mean Corpuscular Hemoglobin 30.1 pg (25.0-34.0); Mean Corpuscular Hgb Conc 32.5 g/dL (32.0-36.0); Mean Corpuscular Volume 92.6 fL (80.0-100.0); Mean Platelet Volume 10.6 fL (9.4-12.4); Platelet Count 226 K/uL (130-400); RDW Coefficient of Variation 11.8 % (11.5-14.5); RDW Standard Deviation 39.9 fL (36.4-46.3); Red Blood Count 4.48 M/uL (4.20-5.40); White Blood Count 8.97 K/ul (4.8-10.8)
[2023-03-16] MEDS: ALPRAZolam 0.25 MG TABLET PO PRN ×2 (07:52→19:13)
[2023-03-16] MEDS: hydrALAZINE 10 MG TAB PO SCH ×2 (07:53→19:16)
[2023-03-16] MEDS: METOPROLOL SUCC 50MG EXT REL TAB PO SCH ×3 (07:53→19:16)
[2023-03-16] MEDS: ISOSORBIDE DINITRATE 20 MG TAB PO SCH ×3 (07:54→16:54)
[2023-03-16] MEDS: ASPIRIN 81 MG ECTAB PO SCH (07:54)
[2023-03-16] MEDS: PANTOprazole 40 MG TAB PO SCH (07:55)
[2023-03-16] MEDS: DOXYCYCLINE HYCLATE 100 MG CAP PO SCH ×2 (07:56→19:16)
[2023-03-16] MEDS: LIDOCAINE 5% 1 PATCH TD SCH (07:58)
[2023-03-16 09:34] LABS: BUN Creatinine Ratio 67.8 (10-20); Calcium 10.2 mg/dl (8.6-10.3); Creatinine Clr Calc Pharmacy 58.7 ml/min; Est GFR (African American) 102.5 ml/min; Est GFR (Non-African American) 88.4 ml/min
[2023-03-16] MEDS: IPRATROPIUM BROMIDE NEB SOLN 0.02% 2.5 ML VIAL INH PRN ×2 (10:43→18:15)
[2023-03-16] MEDS: LEVALBUTEROL 1.25 MG/3 ML NEB NEB PRN ×2 (10:43→18:15)
--- NOTE | 2023-03-16 12:05 | Hospitalist Progress Note ---
Date of Service March 16, 2023 Assessment & Plan (1) ST elevation on ECG: (2) Apical ballooning syndrome: (3) Acute and chronic respiratory failure: (4) Mass of left lung: (5) Pulmonary nodule, left: (6) Pneumonia: (7) Tobacco abuse: (8) COPD (chronic obstructive pulmonary disease): (9) Hyponatremia: (10) E. coli UTI: Plan 77 year old female presenting to the ED with SOB with worsening productive cough for few days. S/p BIPAP for respiratory distress. CT chest 1. No pulmonary embolism. 2. Masslike consolidation within the anterior aspect of the left upper lobe. Differential of pneumonia versus malignancy. 3. Pulmonary nodule at the left lower lobe base measuring 1.9 x 1.6 cm. 4. Severe emphysema. 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 Basilar segments are hyperdynamic. RVSP at 50-60 mm Hg. Plan: Acute on chronic respiratory failure with hypoxia-acute event resolved, currently saturating well at [address] L[address] with severe emphysema and KAYKAY mass. S/p BIPAP and now on NC 2L which is her home requirement. Seen by pulmonology. Recommendations noted. Continue supplemental oxygen with BIPAP prn. 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 - Seen by cardio- considering her multiple risk factors and frailty, recommended conservative management with heparin drip, BB, topical nitrates, aspirin and BP control. Poor prognosis per cardio. -Status post heparin drip for 48 hours, discontinued today 03/12 per cardiology -Continue Toprol, hydralazine, Isordil dinitrate as tolerated by BP. Further management per cardiology but overall prognosis remains limited Hyponatremia- Resolved. Na 118->119->121->123->125->129->135->138->141->142. Nephro following. S/p urea and Lasix and discontinued 03/13. Metabolic alkalosis-improved E coli UTI- sensitive to Ancef. Completing antibiotic course with Ancef Left upper lobe lung mass-suspected malignancy vs PNA. Also has LLL lung nodule known before. CT personally reviewed. Seen by pulmonology. Recommendations noted. Patient declines further work-up as she did in the past. COPD- does not seem to be in acute exacerbation. Prior heavy tobacco abuse, quit in December. Zosyn and solumedrol discontinued and started on low dose prednisone completing today, doxy per pulmonology. Continue aerosols Hypertensive urgency-resolved, BP now normal. On HLZ, isosorbide, toprol Severe protein-calorie malnutrition-- BMI 15.6. Dietitian eval. Mild hypercalcemia-resolved with gentle IVF. Chronic low back pain-lidocaine patch. Tylenol as needed. GOC discussion-palliative care following. Continue current level of care DVT ppx-SQ heparin Dispo-PT OT recommends rehab. Awaiting insurance authorization and bed availability. Patient is stable for discharge to rehab DNR/DNI Admission and Anticipated Discharge Date Admission Date: March 09, 2023 Subjective Patient was seen and examined at bedside. States she still feels short of breath but denies any other issues. States she was seen by physical therapy but she cannot do much. Appetite continues to improve. She is agreeable to remove Delgado catheter and have external catheter. States she had bowel movement with laxative. No fever, chills, chest pain, nausea or vomiting Review of Systems Review of Systems: All systems reviewed & are unremarkable except as noted in Subjective Physical Exam Physical Exam: General: Thin frail elderly female, lying comfortably in bed, not in distress, on NC HEENT: EZIO, MMM Chest: Decreased breath sounds bilaterally CVS: Tachycardic, normal heart sounds, no murmur Abdomen: Soft, non tender, not distended, normal bowel sounds Neuro: Awake, alert, oriented, conversing well, non focal Extremities: No cyanosis, clubbing or edema Delgado with mohini urine Results & Data Results & Data Vital Signs (Past 12 Hours) Vital Signs Temp Pulse Resp BP Pulse Ox O2 Del Method O2 Flow Rate 03/16/23 11:32 36.6 C 101 H 19 124/61 94 Nasal Cannula 2.0 03/16/23 10:45 98 H 20 95 Nasal Cannula 2 03/16/23 08:00 Nasal Cannula 2 03/16/23 08:13 36.4 C L 98 H 20 130/70 94 Nasal Cannula 2.0 03/16/23 02:45 36.4 C L 96 H 18 152/73 H 94 Nasal Cannula 2 Laboratory Results Short CBC 03/16/23 Range/Units 06:13 WBC 8.97 (4.8-10.8) K/ul Hgb 13.5 (12.0-16.0) g/dl Hct 41.5 (37.0-47.0) % Plt Count 226 (130-400) K/uL BMP 03/16/23 06:13 Sodium 142 Potassium 4.0 Chloride 93 L Carbon Dioxide 38 H BUN 40 H Creatinine 0.59 L Glucose 107 H Calcium 10.2 Medications Administered Current Inpatient Medications Acetaminophen (Acetaminophen 325 Mg Tab) 650 mg PO Q4H PRN PRN Reason: Pain or Fever Stop: 04/08/23 23:49 Last Admin: 03/14/23 19:49 Dose: 650 mg Alprazolam (Alprazolam 0.25 Mg Tablet) 0.25 mg PO BID PRN PRN Reason: agitation Stop: 04/09/23 20:59 Last Admin: 03/16/23 07:52 Dose: 0.25 mg Aspirin (Aspirin 81 Mg Ectab) 81 mg PO DAILY QAMAR Stop: 04/09/23 08:59 Last Admin: 03/16/23 07:54 Dose: 81 mg Doxycycline Hyclate (Doxycycline Hyclate 100 Mg Cap) 100 mg PO BID QAMAR Stop: 03/17/23 08:59 Last Admin: 03/16/23 07:56 Dose: 100 mg Heparin Sodium (Porcine) (Heparin Sod 5,000 Unit/0.5 Ml Vial) 5,000 units SQ Q8 QAMAR Stop: 04/11/23 13:59 Last Admin: 03/16/23 05:32 Dose: 5,000 units Hydralazine HCl (Hydralazine 10 Mg Tab) 10 mg PO BID QAMAR Stop: 04/11/23 11:14 Last Admin: 03/16/23 07:53 Dose: 10 mg Cefazolin Sodium (Ancef 2000mg) 2,000 mg in 15 mls @ 3.75 mls/min IV Q8H QAMAR Stop: 03/19/23 13:59 Ipratropium [place] (Ipratropium [place] Neb Soln 0.02% 2.5 Ml Vial) 0.5 mg INH Q6R PRN PRN Reason: Shortness Of Breath Or Wheezing Stop: 04/09/23 00:59 Last Admin: 03/16/23 10:43 Dose: 0.5 mg Isosorbide Dinitrate (Isosorbide Dinitrate 20 Mg Tab) 20 mg PO 0700,1200,1700 [facility] Stop: 04/11/23 11:59 Last Admin: 03/16/23 07:54 Dose: 20 mg Levalbuterol HCl (Levalbuterol 1.25 Mg/3 Ml Neb) 1.25 mg NEB Q6R PRN PRN Reason: Shortness Of Breath Or Wheezing Stop: 04/09/23 00:59 Last Admin: 03/16/23 10:43 Dose: 1.25 mg Lidocaine (Lidocaine 5% 1 Patch) 1 patch TD [facility] Stop: 04/12/23 11:29 Last Admin: 03/16/23 07:58 Dose: 1 patch Metoprolol Succinate (Metoprolol Succ 50mg Ext Rel Tab) 50 mg PO TID [facility] Stop: 04/11/23 08:59 Last Admin: 03/16/23 07:53 Dose: 50 mg Miscellaneous (Remove Lidoderm Patch) 1 each N/A DAILY@2100 [facility] Stop: 04/12/23 22:59 Last Admin: 03/15/23 20:03 Dose: 1 each Ondansetron HCl (Ondansetron Inj 2 Mg/Ml 2 Ml Vial) 4 mg IV Q6H PRN PRN Reason: Nausea And Vomiting Stop: 04/09/23 16:12 Last Admin: 03/12/23 11:34 Dose: 4 mg Pantoprazole Sodium (Pantoprazole 40 Mg Tab) [facility] [place] Stop: 04/13/23 18:14 Last Admin: 03/16/23 07:55 Dose: 40 mg Polyethylene Glycol (Polyethylene (Miralax) 17 Gm Pack) 17 gm PO DAILY PRN PRN Reason: Constipation Stop: 04/13/23 18:04 Senna/Docusate Sodium (Docusate Sodium/Senna 50/8.6mg Tab) 1 tab PO HS [facility] Stop: 04/13/23 20:59 Last Admin: 03/15/23 20:02 Dose: Not Given (6) Pneumonia Laterality: left Lung location: upper lobe of lung Pneumonia type: due to unspecified organism Qualified Code(s): J18.9 - Pneumonia, unspecified organism
--- NOTE | 2023-03-16 14:15 | Cardiology Progress Note ---
Date of Service March 16, 2023 Assessment & Plan (1) ST elevation on ECG: (2) Hypertensive emergency: (3) Apical ballooning syndrome: (4) Acute and chronic respiratory failure with hypercapnia: (5) COPD (chronic obstructive pulmonary disease): Plan Repeat EKG performed today 03/16/2023 reveals sinus rhythm at 92 bpm, diffuse ST changes, however improved compared to previous tracing. A repeat limited echocardiogram was performed on 03/16/2023 with findings of a small apical wall motion abnormality with normal LV wall motion otherwise, LVEF 55%. Compared to the previous study performed 03/10/2023, there has been interval improvement in the overall left ventricular systolic function. Clinical presentation consistent with stress-induced cardiomyopathy, underlying coronary heart disease not excluded. Continue aspirin 81 mg daily, metoprolol succinate 50 mg 3 times daily, is osorbide dinitrate 20 mg 3 times daily, hydralazine 10 mg twice daily. Volume status stable at present. DVT prophylaxis: SQ heparin Admission and Anticipated Discharge Date Admission Date: March 09, 2023 Subjective Patient seen in cardiology follow-up. No acute complaints. Remains on chronic oxygen supplementation at 2 L/min nasal cannula as per her usual baseline. Sinus rhythm and sinus tachycardia with rate in the 90s to 100 bpm range noted on telemetry, unchanged. Physical Exam Constitutional: + ill appearing, + thin, + cachectic and + in distress Eyes: PERRL, conjunctivae normal, anicteric sclerae ENMT: external ear and nose normal, oropharynx normal Neck: trachea midline, no thyromegaly Respiratory: + tachypneic Auscultation: + diminished lung sounds (Bilateral); no rales, no rhonchi and no wheezes Cardiovascular: Rate/Rhythm: regular rate, regular rhythm and + tachycardic Heart Sounds: normal S1 and normal S2; no murmur Vessels: no JVD Extremities: no edema Gastrointestinal (Abdomen): normal bowel sounds, soft, nontender, no hepatosplenomegaly Inspection/Auscultation: abdomen normal to inspection; abdomen not distended Percussion/Palpation: abdomen soft; abdomen nontender, no guarding and abdomen not rigid Neurologic: moves all extremities; no focal motor deficits Psychiatric: A+Ox3, euthymic affect Results & Data Vital Signs (Past 12 Hours) Vital Signs Temp Pulse Resp BP Pulse Ox O2 Del Method O2 Flow Rate 03/16/23 11:32 36.6 C 101 H 19 124/61 94 Nasal Cannula 2.0 03/16/23 10:45 98 H 20 95 Nasal Cannula 2 03/16/23 08:00 Nasal Cannula 2 03/16/23 08:13 36.4 C L 98 H 20 130/70 94 Nasal Cannula 2.0 03/16/23 02:45 36.4 C L 96 H 18 152/73 H 94 Nasal Cannula 2
[2023-03-16] MEDS: DOCUSATE SODIUM/SENNA 50/8.6MG TAB PO SCH (19:14)
[2023-03-17] MEDS: ceFAZolin 2000MG 2,000 MG/15 ML SYR IV SCH (05:53)
[2023-03-17] MEDS: HEPARIN SOD 5,000 UNIT/0.5 ML VIAL SQ SCH ×3 (05:53→22:07)
[2023-03-17] MEDS: ISOSORBIDE DINITRATE 20 MG TAB PO SCH ×3 (06:00→16:19)
[2023-03-17] MEDS: ALPRAZolam 0.25 MG TABLET PO PRN ×2 (06:16→17:45)
[2023-03-17 06:44] LABS: Hematocrit (blood only) 40.3 % (37.0-47.0); Hemoglobin 13.1 g/dl (12.0-16.0); Mean Corpuscular Hemoglobin 29.8 pg (25.0-34.0); Mean Corpuscular Hgb Conc 32.5 g/dL (32.0-36.0); Mean Corpuscular Volume 91.8 fL (80.0-100.0); Mean Platelet Volume 10.7 fL (9.4-12.4); Platelet Count 225 K/uL (130-400); RDW Coefficient of Variation 11.7 % (11.5-14.5); RDW Standard Deviation 39.5 fL (36.4-46.3); Red Blood Count 4.39 M/uL (4.20-5.40); White Blood Count 9.88 K/ul (4.8-10.8)
[2023-03-17 07:21] LABS: BUN Creatinine Ratio 53.3 (10-20); Calcium 9.7 mg/dl (8.6-10.3); Creatinine Clr Calc Pharmacy 52.4 ml/min; Est GFR (African American) 101.9 ml/min; Est GFR (Non-African American) 87.9 ml/min; Potassium 4.2 mmol/L (3.5-5.1)
[2023-03-17] MEDS: METOPROLOL SUCC 50MG EXT REL TAB PO SCH ×3 (08:25→19:55)
[2023-03-17] MEDS: PANTOprazole 40 MG TAB PO SCH (08:25)
[2023-03-17] MEDS: ASPIRIN 81 MG ECTAB PO SCH (08:25)
[2023-03-17] MEDS: hydrALAZINE 10 MG TAB PO SCH ×2 (08:26→19:55)
[2023-03-17] MEDS: LEVALBUTEROL 1.25 MG/3 ML NEB NEB PRN ×2 (08:36→17:51)
[2023-03-17] MEDS: IPRATROPIUM BROMIDE NEB SOLN 0.02% 2.5 ML VIAL INH PRN ×2 (08:36→17:52)
[2023-03-17] MEDS: LIDOCAINE 5% 1 PATCH TD SCH (09:12)
--- NOTE | 2023-03-17 09:23 | Communication Note ---
Date of Service: March 17, 2023 Pt admiitted w/ critical hyponatremia now corrected and not currently on meds for it Recommend -nephro [facility] d/c appt to f/u w/in 2-4 wks of d/c w/ serum/urine osms, rd urinne sodium and bmp to be ordered by nephro RN -for now no fluid limit or hyponatremia meds at d/c
--- NOTE | 2023-03-17 10:32 | Hospitalist Progress Note ---
Date of Service March 17, 2023 Assessment & Plan (1) ST elevation on ECG: (2) Apical ballooning syndrome: (3) Acute and chronic respiratory failure: (4) Mass of left lung: (5) Pulmonary nodule, left: (6) Pneumonia: (7) Tobacco abuse: (8) COPD (chronic obstructive pulmonary disease): (9) Hyponatremia: (10) E. coli UTI: Plan 77 year old female presented to the ED with SOB with worsening productive cough for few days. Required BIPAP for respiratory distress. CT chest noted Masslike consolidation within the anterior aspect of the left upper lobe. Differential of pneumonia versus malignancy, Pulmonary nodule at the left lower lobe base measuring 1.9 x 1.6 cm and Severe emphysema. Resp bioire - negative Echo on 03/10/23- EF 45-50% with mid and apical segments of LV akinetic and mildly expanded consistent with ischemic heart disease vs Takotsubo cardiomyopathy. Basilar segments are hyperdynamic. RVSP at 50-60 mm Hg. Acute on chronic respiratory failure with hypoxia-acute event resolved Currently saturating well at 2 L. Pulm recs noted Continue supplemental oxygen with BIPAP prn. 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 Hence, improvement in systolic function. Cardiology recs noted Continue aspirin. Continue metoprolol succinate, isosorbide dinitrate and hydralazine started this admission Hyponatremia- Resolved. Metabolic alkalosis Ordained Minister recs noted. Patient to follow up with Nephro in 2-4 weeks. Nephro will arrange outpatient labs E coli UTI Sensitive to Ancef. Will complete Antibiotics today Left upper lobe lung mass Suspected malignancy vs PNA. Also has LLL lung nodule known before. Pulm recs noted Patient declines further work-up as she did in the past. COPD stable Prior heavy tobacco abuse, quit in December. Continue nebs Severe protein-calorie malnutrition Dietitian eval/recs Continue dietary supplementation Chronic low back pain Lidocaine patch. Tylenol as needed. Palliative care eval noted. Continue current level of care DVT ppx-SQ heparin Dispo-PT/OT recommends rehab. CM working on placement. Patient is stable for discharge to rehab DNR/DNI I spent a total of 45 minutes coordinating, documenting and providing care for this patient excluding time spent in performance of separately billed services Admission and Anticipated Discharge Date Admission Date: March 09, 2023 Subjective 77 year old woman with h/o chronic respiratory failure secondary to COPD on home O2 2L, history of pulmonary nodules, cervical cancer status post surgery, anxiety disorder, past tobacco abuse, medical noncompliance as per records who presented with worsening shortness of breath. Being managed for hypertensive emergency, stress induced cardiomyopathy , acute on chronic respiratory failure, UTI. Patient seen and examined today Reports generalized weakness today Denied any chest pain, SOB at rest. Reports occasional cough but not unusual Denied fever, chills, nausea, vomiting, abd pain. Reports constipation is resolved Denied dysuria, freq, urgency today Physical Exam Constitutional: + thin and + frail appearing Eyes: PERRL, conjunctivae normal, anicteric sclerae ENMT: external ear and nose normal, oropharynx normal Respiratory: normal respiratory effort, lungs clear to auscultation Cardiovascular: Rate/Rhythm: regular rate and regular rhythm S1 S2 Gastrointestinal (Abdomen): normal bowel sounds, soft, nontender, no hepatosplenomegaly Musculoskeletal: No pedal edema Neurologic: PERRL, EOMI, accommodation nl, no face palsy, no dysarthria Psychiatric: A+Ox3, euthymic affect Results & Data Results & Data Vital Signs (Past 12 Hours) Vital Signs Temp Pulse Pulse Pulse Resp BP Pulse Ox 03/17/23 08:00 99 H 03/17/23 08:00 03/17/23 08:36 100 H 20 95 03/17/23 07:45 36.7 C 102 H 24 112/66 95 03/17/23 03:50 36.8 C 89 23 140/72 100 03/16/23 23:32 36.6 C 89 24 114/58 L 99 03/17/23 00:04 88 03/16/23 22:23 36.7 C 88 16 127/71 99 O2 Del Method O2 Flow Rate 03/17/23 08:00 03/17/23 08:00 Nasal Cannula 2 03/17/23 08:36 Nasal Cannula 2 03/17/23 07:45 Nasal Cannula 2.0 03/17/23 03:50 Nasal Cannula 2 03/16/23 23:32 Nasal Cannula 2 03/17/23 00:04 03/16/23 22:23 Nasal Cannula 2 Laboratory Results Abnormal lab results 03/17/23 Range/Units 06:08 Chloride 95 L (98-107) mmol/L Carbon Dioxide 42 H* (21-32) mmol/L BUN 32 H (6-23) mg/dl BUN/Creatinine Ratio 53.3 H (10-20) Glucose 107 H (70-99(Fasting)) mg/dl (6) Pneumonia Laterality: left Lung location: upper lobe of lung Pneumonia type: due to unspecified organism Qualified Code(s): J18.9 - Pneumonia, unspecified organism
[2023-03-17] MEDS: DOCUSATE SODIUM/SENNA 50/8.6MG TAB PO SCH (19:57)
[2023-03-18] MEDS: ISOSORBIDE DINITRATE 20 MG TAB PO SCH ×2 (06:20→12:12)
[2023-03-18] MEDS: HEPARIN SOD 5,000 UNIT/0.5 ML VIAL SQ SCH ×2 (06:20→13:51)
[2023-03-18] MEDS: ALPRAZolam 0.25 MG TABLET PO PRN (06:47)
[2023-03-18] MEDS: IPRATROPIUM BROMIDE NEB SOLN 0.02% 2.5 ML VIAL INH PRN ×2 (08:21→14:23)
[2023-03-18] MEDS: LEVALBUTEROL 1.25 MG/3 ML NEB NEB PRN ×2 (08:22→14:23)
[2023-03-18] MEDS: METOPROLOL SUCC 50MG EXT REL TAB PO SCH ×2 (08:45→13:50)
[2023-03-18] MEDS: PANTOprazole 40 MG TAB PO SCH (08:45)
[2023-03-18] MEDS: ASPIRIN 81 MG ECTAB PO SCH (08:45)
[2023-03-18] MEDS: hydrALAZINE 10 MG TAB PO SCH (08:45)
[2023-03-18] MEDS: LIDOCAINE 5% 1 PATCH TD SCH (08:46)
--- NOTE | 2023-03-18 14:47 | Discharge Summary ---
Date of Service March 18, 2023 Admission HPI Per Admitting Provider History obtained from patient, family, and records. Medical history significant for chronic respiratory failure secondary to COPD on home O2, history of pulmonary nodules, cervical cancer status post surgery, anxiety disorder, past tobacco abuse, medical noncompliance as per records. Patient declining in health over the last few months as per family. Does not want to go out of her home. Patient seems depressed since the of sister about 6 years ago. No thoughts about harming herself. Patient seen at [facility] [facility] pulmonology office 6 months ago for follow-up visit. Patient noncompliant with standard COPD treatment as per documentation. She declined PFTs, follow-up low-dose CT chest screening at that time. 2020 low-dose CT chest showed unchanged left lower lobe solid nodule measuring 1.8 x 1.5 cm. Several other subcentimeter pulmonary nodules are again seen scattered throughout the lungs which are all stable dating back to CT from September 2017 as per report. Consideration for palliative medicine consultation. Patient noted worsening cough productive of yellow sputum with shortness of breath the last few days. No known sick contacts. Denies aspiration but patient admits to choking sensation from time to time. Poor appetite. No headache symptoms. Pleuritic chest pain. Patient family called EMS to patient's home. Patient noted to be in respiratory distress. Solu-Medrol and neb treatment administered in route to ER. SBP 250s upon arrival at the ER. BiPAP initiated at the ER. Nitro drip/Nitropaste administered at the ER. Patient later noted to have ST elevations on the monitor. Patient without chest pain complaints at time of abnormal telemetry as per ER provider.. 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 Admission Exam Per Admitting Provider GENERAL: Slightly uncomfortable, underweight, minimal respiratory distress SKIN: Normal color, warm HEENT: [place] palpebral conjunctivae, no ptosis, dry buccal mucosa, BiPAP in place NECK : Supple, no tenderness CHEST : Decreased breath sounds, occasional expiratory wheezes, no tenderness HEART : Tachycardic, no obvious murmurs ABDOMEN: no distention, nontender EXTREMITIES : No LE swelling/tenderness, no other conspicuous deformities noted NEUROLOGIC : Coherent, no facial asymmetry, gait and stance not assessed Principal Diagnosis Acute on chronic respiratory failure with hypoxia Hypertensive emergency Stress induced Cardiomyopathy Hyponatremia Urinary tract infection Malnutrition Discharge Exam Constitutional + thin and + frail appearing Eyes PERRL, conjunctivae normal, anicteric sclerae ENMT external ear and nose normal, oropharynx normal Respiratory normal respiratory effort, lungs clear to auscultation Cardiovascular Rate/Rhythm: regular rate and regular rhythm S1 S2 Gastrointestinal (Abdomen) normal bowel sounds, soft, nontender, no hepatosplenomegaly Musculoskeletal No pedal edema Neurologic PERRL, EOMI, accommodation nl, no face palsy, no dysarthria Psychiatric A+Ox3, euthymic affect Discharge Data Allergies Allergy/AdvReac Type Severity Reaction Status Date / Time aspirin AdvReac Intermediate NOSE BLEED Verified 03/09/23 19:42 WITH FULL STRENGTH ASA, LOW DOSE [place]. Sulfa (Sulfonamide AdvReac Intermediate NOSE Verified 03/09/23 19:39 Antibiotics) BLEEDS PER [facility] [place] [facility] MED LIST Consultations 03/09/23 21:44 ED Decision to Admit Stat 03/10/23 00:47 Consult Pulmonology Routine 03/10/23 00:57 Consult Cardiology Routine 03/10/23 07:44 Consult Nephrology Routine 03/10/23 14:28 Consult Patient Rep [Consult Patient Services] Routine 03/11/23 15:30 Consult Palliative Care Routine Ordered Studies 03/09/23 21:21 CT angio chest PE protocol Stat Hospital Course (1) ST elevation on ECG: (2) Apical ballooning syndrome: (3) Acute and chronic respiratory failure: (4) Mass of left lung: (5) Pulmonary nodule, left: (6) Pneumonia: (7) Tobacco abuse: (8) COPD (chronic obstructive pulmonary disease): (9) Hyponatremia: (10) E. coli UTI: Plan 77 year old female presented to the ED with SOB with worsening productive cough for few days. Required BIPAP for respiratory distress. CT chest noted Masslike consolidation within the anterior aspect of the left upper lobe. Differential of pneumonia versus malignancy, Pulmonary nodule at the left lower lobe base measuring 1.9 x 1.6 cm and Severe emphysema. Resp bioire - negative Echo on 03/10/23- EF 45-50% with mid and apical segments of LV akinetic and mildly expanded consistent with ischemic heart disease vs Takotsubo cardiomyopathy. Basilar segments are hyperdynamic. RVSP at 50-60 mm Hg. 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 Underlying coronary artery disease not excluded Hypertensive emergency Echo on 03/10 noted EF of 45-50 with mid and apical segments of LV akinetic Patient was evaluated by Cardiology Was started on antihypertensives and BP is well controlled now Completed heparin gtt Echo on 03/16/23 noted small apical wall motion abnormality with normal LV wall motion and EF of 55%. Hence, improvement in systolic function. Continue aspirin. Continue metoprolol succinate, isosorbide dinitrate and hydralazine started this admission per Cardiology Patient can follow up with Cardiology outpatient Hyponatremia- Resolved. Metabolic alkalosis Was evaluated by Nephrology while inpatient Patient to follow up with Nephro in 2-4 weeks. Nephro will arrange outpatient labs E coli UTI Completed antibiotics inpatient Left upper lobe lung mass Suspected malignancy vs PNA. Also has LLL lung nodule known before Patient declines further work-up as she did in the past. COPD stable Prior heavy tobacco abuse, quit in December. Continue nebs Severe protein-calorie malnutrition Continue dietary supplementation Encourage oral intake Chronic low back pain Tylenol as needed. Total Time Total Time Spent Total Time Spent (In Minutes): 40 Total Time Includes: Examination of the Patient, Discharge Planning and Medication Reconciliation Discharge Plan Discharge Items Patient Disposition: Transfer Inpatient Rehab Fac Reason For Visit: RESP FAILURE Discharge Diagnosis: Acute on chronic respiratory failure with hypoxia Hypertensive emergency Stress induced Cardiomyopathy Hyponatremia Urinary tract infection Malnutrition Activity: As commented below Activity Comment: Per PT recs Non-emergency contact: Primary Care Provider and Perfume Maker Call non-emergency contact if: you have any medication questions and your symptoms worsen Follow-up/Referrals: Sondra Oquendo MD, PhD [Physician] - (Date & Time 04/28/2023 1:00 PM Provider Sondra Oquendo MD Department Nephrology, [facility] ) Vilma Dior, [Primary Care Provider] - Diet: Heart Healthy Diet Texture: Easy to Chew Addtl Attending Provider Instructions: Mrs Zepeda. You came to the hospital complaining of worsening shortness of breath. You were evaluated and managed for the above listed diagnoses. You were managed with Cardiology, Pulmonology and Nephrology. You are being discharged to rehab. Please ensure follow up with your Primary Doctor. It was a pleasure taking care of you. Pending Studies at Discharge: No Stand-Alone Forms: My [facility] Skilled Items Patient informed of condition?: Yes DNR: Yes Discharge Level of Care: Acute rehab Communicable Disease: No Discharge Prognosis: Stable Lines: None Urinary Catheter: No Medications and DC Order Prescriptions: New hydralazine 10 mg Tablet 10 mg PO BID Qty: 60 0RF metoprolol succinate 50 mg Tablet Extended Release 24 Hr 50 mg PO TID Qty: 90 0RF isosorbide dinitrate 20 mg Tablet 20 mg PO 0700,1200,1700 Qty: 90 0RF sennosides-docusate sodium [Senokot-S] 8.6-50 mg Tablet 1 tab PO HS Qty: 30 0RF pantoprazole 40 mg Tablet,Delayed Release (Dr/Ec) 40 mg PO QAM Qty: 30 0RF Continued aspirin 81 mg tablet,delayed release (DR/EC) 81 mg PO DAILY Qty: 30 0RF alprazolam [Xanax] 0.25 mg tablet 0.25 mg PO DAILY PRN (Reason: Anxiety) Qty: 30 0RF Rx Instructions: PER PT "TAKE EVERY DAY". albuterol sulfate 90 mcg/actuation HFA aerosol inhaler 2 puff inhalation Q4H PRN (Reason: Shortness Of Breath Or Wheezing) Qty: 8.5 0RF Changed acetaminophen [Non-Aspirin Pain Relief] 500 mg Tablet 500 mg PO QID PRN (Reason: Pain) Qty: 60 0RF Discharge Orders: Discharge Order (Routine); Ordered 03/18/23 Ordered By: Anisa Alvarez/Other Patient Handouts: What Is Palliative Care, Controlling High Blood Pressure, What Is Pneumonia?, Preventing Pneumonia Admission Data Admit Date/Time: 03/09/23 22:21 Attending Provider: Anisa Haynes I. Admit Provider: Jeremias Hernández Primary Care Provider: Vilma Dior Other Providers: Jeremias Hernández ; Katie Dennis ; Delbert Bernal ; Girma Lobato ; Tuan Dickens ; Jorge Bennett ; Dominic Maki ; Millicent Sultana ; Sara Barrow ; Katie Shah ; Iain Alexander ; Colt Stewart ; Alen Holcomb ; Segundo Wilson ; Ajay Fagan ; Daniel Jensen ; Claudine Chase ; Sheryl Byrd ; Sondra Oquendo ; Jacqueline Alvarado ; [facility] ; [facility], ; Abdi Oneal. Other Interventions: Discharge Summary Assessment (RN) Last Done: 03/18/23 15:48
[2023-03-18] MEDS ORDERED: COUGH DROP (SUGAR FREE) LOZ 24 LOZ/1 BOX BUCCAL ONE (15:25)
--- NOTE | 2023-03-18 22:05 | Electrocardiogram Report ---
Test Reason : Blood Pressure : / mmHG Vent. Rate : 092 BPM Atrial Rate : 092 BPM P-R Int : 114 ms QRS Dur : 100 ms QT Int : 368 ms P-R-T Axes : 084 082 -35 degrees QTc Int : 455 ms Normal sinus rhythm T wave abnormality, consider inferolateral ischemia Abnormal ECG When compared with ECG of 11-MAR-2023 06:24, ST no longer elevated in Inferior leads ST no longer elevated in Anterolateral leads Confirmed by Duran Leslie ([id number]) on 03/18/2023 10:04:41 PM Referred By: REFERRED SELF Confirmed By:Duran Leslie
== END 2023-03-18 15:48 | DRG 189 ==
LOC: ED 18:53 → 4W 22:21 → SUPCPDRO 22:21 → SUATTDRO 22:21 → 4W 23:13 → 2E 03-10 11:40